=== PATIENT | female | born 1960 | race African-American/Black ===

== ENCOUNTER → 2016-08-21 | Outpatient (CLI) | payer MEDICARE, MEDICAID ==
[~2016-08-21] MED LIST: ALBU90AE IH; ASPI-1035 PO; BARIUM SULFATE 450ML ORAL SUSP ONE; CHOL100046 PO; CLON0.1T14 PO; CLOP75TA33 PO; DEXL60CA3 PO; DILT120C11 PO; FURO40TA5 PO; INSU100V3 IJ; NITR0.4T SL; mucomyst PO
== END | disposition home or self-care (01) ==
LOC: RAD 09:43
PROVIDERS: ATTEND Specialist
DX: K22.8 Other specified diseases of esophagus (principal)
CPT/HCPCS: 74220

== ENCOUNTER 2016-12-10 09:06 | Inpatient (IN) | payer MEDICARE, MEDICAID ==
[2016-12-10] VITALS (8 sets, daily range): BP systolic 105–197; BP diastolic 63–102
[~2016-12-10] VITALS: Ht 165.1 cm; Wt 85.7 kg
[~2016-12-10 09:06] MED LIST changes: -ASPI-1035 PO; +ASPI-1159 PO; -BARIUM SULFATE 450ML ORAL SUSP ONE
[2016-12-10 10:39] LABS: HEMATOCRIT 35.6 % (36.0-48.0); HEMOGLOBIN 11.1 g/dL (12.0-16.0); MEAN CORPUSCULAR HEMOGLOBIN 20.8 pg (28.0-32.0); MEAN CORPUSCULAR VOLUME 66.6 fL (81.0-99.0); PLATELET 181 x1000/uL (130-400); RED BLOOD CELL COUNT 5.35 mill/uL (4.2-5.4)
[2016-12-10 10:49] LABS: PROTHROMBIN TIME 10.8 sec (9.4-11.6)
[2016-12-10] MEDS ORDERED: MIDAZOLAM HCL 2 MG/2 ML VIAL ONE (12:41)
[2016-12-10] MEDS ORDERED: FENTANYL CITRATE/PF 50MCG/ML 2ML VIAL ONE (12:41)
[2016-12-10] MEDS ORDERED: IODIXANOL 320MG/ML 200ML BOTTLE ONE (12:41)
[2016-12-10] MEDS ORDERED: LIDOCAINE HCL 1% 20ML VIAL (Pyxis) INJ ONE (12:41)
[2016-12-10] MEDS ORDERED: HEPARIN SODIUM 1,000 UNIT/1ML VIAL IV ONE (13:08)
[2016-12-10] MEDS ORDERED: HYDRALAZINE 20MG/ML VIAL ONE (13:24)
[2016-12-10] MEDS ORDERED: NITROGLYCERIN 50MG PREMIX 250 ML IV ONE (13:37)
[2016-12-10 14:01] LABS: BG BASE EXCESS -5.7 mmol/L (-2.0-2.0); BG CARBOXYHEMOGLOBIN 0.2 % (0.5-1.5); BG DEOXYHEMOGLOBIN 1.1 % (0.0-5.0); BG FRACTION INSPIRED OXYGEN 32; BG HCO3 ACT 17.8 mmol/L (22.0-26.0); BG METHEMOGLOBIN 0.5 % (0.0-1.5); BG OXYGEN SATURATION 98.9 % (92.0-98.5); BG OXYHEMOGLOBIN 98.2 % (94.0-97.0); BG PCO2 28.8 mmHg (35.0-45.0); BG PH 7.408 (7.350-7.450); BG PO2 158.7 mmHg (75.0-100.0); BG SAMPLE SITE A-LINE; BG TOTAL HEMOGLOBIN 11.6 g/dL (12.0-18.0); BG VENT MODE NASAL CANNULA
[2016-12-10] MEDS ORDERED: ACETAMINOPHEN 325MG TABLET PO PRN (14:15)
[2016-12-10] MEDS ORDERED: DEXTROSE 50% WATER 50ML SYRINGE IV PRN (14:15)
[2016-12-10] MEDS ORDERED: ATROPINE SULFATE 1MG/10ML SYR IV PRN (14:15)
[2016-12-10] MEDS ORDERED: SODIUM CHLORIDE 0.45% 600 ML IV ONE (14:15)
[2016-12-10] MEDS ORDERED: CLONIDINE 0.3MG TABLET PO NR (17:15)
[2016-12-10] MEDS ORDERED: CLONIDINE 0.3MG TABLET ONE (17:17)
[2016-12-10] MEDS: BLOOD SUGAR DIAGNOSTIC STRIP TEST SCH ×2 (17:50→21:53)
[2016-12-10] MEDS: INSULIN LISPRO 100 UNITS/ML SUBCUT SCH ×2 (18:04→22:01)
[2016-12-10] MEDS: CLONIDINE 0.3MG TABLET PO SCH (22:37)
[2016-12-11] VITALS (15 sets, daily range): BP systolic 161–212; BP diastolic 75–153
[2016-12-11] MEDS ORDERED: HYDRALAZINE 20MG/ML VIAL IV SCH (03:00)
[2016-12-11] MEDS: CLONIDINE 0.3MG TABLET PO SCH ×2 (04:27→14:50)
[2016-12-11] MEDS: BLOOD SUGAR DIAGNOSTIC STRIP TEST SCH ×4 (06:00→20:42)
[2016-12-11 06:57] LABS: BASOPHILS % 0.8 % (0.0-2.0); EOSINOPHILS % 4.1 % (0.0-5.0); HEMATOCRIT. 35.6 % (36.0-48.0); LYMPHOCYTES % 27.5 % (20.0-50.0); MEAN CORPUSCULAR HEMOGLOBIN 20.8 pg (28.0-32.0); MEAN CORPUSCULAR VOLUME 67.1 fL (81.0-99.0); MEAN PLATELET VOLUME 9.4 fl (7.4-10.4); MONOCYTES % 9.3 % (2.0-8.0); NEUTROPHILS % 58.3 % (40.0-76.0); PLATELET 183 x1000/uL (130-400); RED CELL DISTRIBUTION WIDTH 16.8 % (11.6-14.6)
[2016-12-11] MEDS: INSULIN LISPRO 100 UNITS/ML SUBCUT SCH ×5 (07:20→20:46)
[2016-12-11] MEDS: CLOPIDOGREL 75MG TABLET PO SCH (08:16)
[2016-12-11] MEDS: CLONIDINE 0.1MG TABLET PO PRN ×2 (12:25→16:46)
[2016-12-11 14:03] LABS: PLATELET ESTIMATE NORMAL
[2016-12-11] MEDS ORDERED: NITROGLYCERIN OINT 1GM/INCH UDPKT TD SCH ×2 (16:45→18:00)
[2016-12-11] MEDS: CLONIDINE 0.2MG TABLET PO SCH (22:17)
[2016-12-12] VITALS (12 sets, daily range): BP systolic 173–223; BP diastolic 78–116
[2016-12-12] MEDS: CLONIDINE 0.2MG TABLET PO SCH ×3 (06:18→21:55)
[2016-12-12] MEDS: BLOOD SUGAR DIAGNOSTIC STRIP TEST SCH ×4 (06:20→21:54)
[2016-12-12 07:03] LABS: BASOPHILS % 1.1 % (0.0-2.0); EOSINOPHILS % 2.8 % (0.0-5.0); HEMATOCRIT. 33.1 % (36.0-48.0); HEMOGLOBIN. 10.3 g/dL (12.0-16.0); LYMPHOCYTES % 28.4 % (20.0-50.0); MEAN CORPUSCULAR HEMOGLOBIN 20.9 pg (28.0-32.0); MEAN CORPUSCULAR VOLUME 67.1 fL (81.0-99.0); MEAN PLATELET VOLUME 9.3 fl (7.4-10.4); MONOCYTES % 9.3 % (2.0-8.0); NEUTROPHILS % 58.4 % (40.0-76.0); PLATELET 174 x1000/uL (130-400); RED BLOOD CELL COUNT 4.94 mill/uL (4.2-5.4); RED CELL DISTRIBUTION WIDTH 17.1 % (11.6-14.6)
[2016-12-12] MEDS: CLOPIDOGREL 75MG TABLET PO SCH (08:13)
[2016-12-12] MEDS: INSULIN LISPRO 100 UNITS/ML SUBCUT SCH ×5 (08:13→22:33)
[2016-12-12] MEDS ORDERED: DEXTROSE 50% WATER 50ML SYRINGE IV PRN (09:45)
[2016-12-12] MEDS: CLONIDINE 0.1MG TABLET PO PRN ×2 (09:47→17:02)
[2016-12-12] MEDS ORDERED: ONDANSETRON HCL 4MG/2ML VIAL IV PRN (10:15)
[2016-12-12] MEDS: ASPIRIN 81MG EC TABLET PO SCH ×2 (11:16→16:15)
[2016-12-12] MEDS: INSULIN DETEMIR UD 100 UNITS/ML SYR SUBCUT SCH (11:30)
[2016-12-12] MEDS ORDERED: BLOOD SUGAR DIAGNOSTIC STRIP TEST SCH (11:50)
[2016-12-12 12:09] LABS: AMMONIA 21 uMol/L (<32)
[2016-12-12 13:35] LABS: *AMPHETAMINES SCREEN URINE NEGATIVE (NEGATIVE); *BARBITURATES SCREEN URINE NEGATIVE (NEGATIVE); *BENZODIAZEPINES SCREEN URINE PRESUMTIVE POSITIVE (NEGATIVE); *COCAINE SCREEN URINE NEGATIVE (NEGATIVE); CANNABINOID URINE SCREEN NEGATIVE (NEGATIVE); METHADONE URINE SCREEN NEGATIVE (NEGATIVE); OPIATES URINE SCREEN NEGATIVE (NEGATIVE); PHENCYCLIDINE URINE SCREEN NEGATIVE (NEGATIVE)
[2016-12-12] MEDS: ATORVASTATIN CALCIUM 20MG TABLET PO SCH (21:55)
[2016-12-13] VITALS (17 sets, daily range): BP systolic 134–219; BP diastolic 73–139
[2016-12-13] MEDS: CLONIDINE 0.1MG TABLET PO PRN ×2 (00:12→08:17)
[2016-12-13] MEDS: BLOOD SUGAR DIAGNOSTIC STRIP TEST SCH ×4 (05:56→20:55)
[2016-12-13] MEDS: CLONIDINE 0.2MG TABLET PO SCH ×4 (05:57→20:59)
[2016-12-13 07:29] LABS: CARBON DIOXIDE 26 mEq/L (21-32); CHLORIDE 104 mEq/L (98-107); HDL CHOLESTEROL 44 mg/dL (40-59); LDL CHOLESTEROL 173 mg/dL (5-100)
[2016-12-13 07:36] LABS: BASOPHILS % 1.1 % (0.0-2.0); EOSINOPHILS % 3.7 % (0.0-5.0); HEMATOCRIT. 35.9 % (36.0-48.0); HEMOGLOBIN. 11.1 g/dL (12.0-16.0); LYMPHOCYTES % 32.2 % (20.0-50.0); MEAN CORPUSCULAR HEMOGLOBIN 20.9 pg (28.0-32.0); MEAN CORPUSCULAR VOLUME 67.2 fL (81.0-99.0); MEAN PLATELET VOLUME 8.9 fl (7.4-10.4); MONOCYTES % 10.8 % (2.0-8.0); NEUTROPHILS % 52.2 % (40.0-76.0); PLATELET 177 x1000/uL (130-400); RED BLOOD CELL COUNT 5.34 mill/uL (4.2-5.4); RED CELL DISTRIBUTION WIDTH 16.8 % (11.6-14.6)
[2016-12-13] MEDS: INSULIN LISPRO 100 UNITS/ML SUBCUT SCH ×4 (08:04→22:27)
[2016-12-13] MEDS: ASPIRIN 81MG EC TABLET PO SCH ×2 (08:16→17:36)
[2016-12-13] MEDS: CLOPIDOGREL 75MG TABLET PO SCH (08:16)
[2016-12-13] MEDS: INSULIN DETEMIR UD 100 UNITS/ML SYR SUBCUT SCH (10:00)
[2016-12-13] MEDS: ATORVASTATIN CALCIUM 20MG TABLET PO SCH (20:51)
[2016-12-13] MEDS ORDERED: INSULIN LISPRO 100 UNITS/ML SUBCUT PRN (21:45)
[2016-12-14] VITALS (11 sets, daily range): BP systolic 155–201; BP diastolic 76–110
[2016-12-14] MEDS: CLONIDINE 0.1MG TABLET PO PRN ×3 (00:45→21:53)
[2016-12-14] MEDS: BLOOD SUGAR DIAGNOSTIC STRIP TEST SCH ×4 (06:50→21:53)
[2016-12-14] MEDS: INSULIN LISPRO 100 UNITS/ML SUBCUT SCH ×2 (07:20→08:10)
[2016-12-14 07:56] LABS: EOSINOPHILS % 4.3 % (0.0-5.0); HEMATOCRIT. 37.1 % (36.0-48.0); HEMOGLOBIN. 11.5 g/dL (12.0-16.0); LYMPHOCYTES % 33.8 % (20.0-50.0); MEAN CORPUSCULAR HEMOGLOBIN 20.9 pg (28.0-32.0); MEAN CORPUSCULAR VOLUME 67.3 fL (81.0-99.0); MEAN PLATELET VOLUME 9.2 fl (7.4-10.4); MONOCYTES % 11.1 % (2.0-8.0); NEUTROPHILS % 49.8 % (40.0-76.0); PLATELET 187 x1000/uL (130-400); RED BLOOD CELL COUNT 5.51 mill/uL (4.2-5.4); RED CELL DISTRIBUTION WIDTH 16.4 % (11.6-14.6)
[2016-12-14] MEDS: CLOPIDOGREL 75MG TABLET PO SCH (08:09)
[2016-12-14] MEDS: ASPIRIN 81MG EC TABLET PO SCH ×2 (08:09→16:07)
[2016-12-14] MEDS: CLONIDINE 0.2MG TABLET PO SCH ×4 (09:05→22:00)
[2016-12-14] MEDS: INSULIN DETEMIR UD 100 UNITS/ML SYR SUBCUT SCH (10:08)
[2016-12-14] MEDS ORDERED: CLONIDINE 0.1MG TABLET PO SCH (11:00)
[2016-12-14] MEDS ORDERED: MINOXIDIL 2.5MG TABLET PO SCH (12:30)
[2016-12-14] MEDS: INSULIN REGULAR (HUMULIN R) 300UNITS/3ML SUBCUT SCH (16:56)
[2016-12-14] MEDS: ATORVASTATIN CALCIUM 20MG TABLET PO SCH (21:49)
[2016-12-14] MEDS ORDERED: INSULIN REGULAR (HUMULIN R) UD 100 UNITS/ML SYR SUBCUT NR (23:52)
[2016-12-15] VITALS (12 sets, daily range): BP systolic 142–184; BP diastolic 66–118
[2016-12-15] MEDS: CLONIDINE 0.2MG TABLET PO SCH ×4 (00:20→21:18)
[2016-12-15] MEDS: CLONIDINE 0.1MG TABLET PO PRN ×2 (05:37→23:21)
[2016-12-15] MEDS: BLOOD SUGAR DIAGNOSTIC STRIP TEST SCH ×4 (06:33→20:16)
[2016-12-15 07:31] LABS: BASOPHILS % 1.3 % (0.0-2.0); EOSINOPHILS % 3.6 % (0.0-5.0); HEMATOCRIT. 40.2 % (36.0-48.0); HEMOGLOBIN. 12.6 g/dL (12.0-16.0); LYMPHOCYTES % 30.9 % (20.0-50.0); MEAN CORPUSCULAR HEMOGLOBIN 21.1 pg (28.0-32.0); MEAN CORPUSCULAR VOLUME 67.4 fL (81.0-99.0); MEAN PLATELET VOLUME 9.1 fl (7.4-10.4); MONOCYTES % 10.4 % (2.0-8.0); NEUTROPHILS % 53.8 % (40.0-76.0); PLATELET 198 x1000/uL (130-400); RED BLOOD CELL COUNT 5.97 mill/uL (4.2-5.4); RED CELL DISTRIBUTION WIDTH 16.8 % (11.6-14.6)
[2016-12-15] MEDS: INSULIN REGULAR (HUMULIN R) 300UNITS/3ML SUBCUT SCH ×2 (08:07→17:13)
[2016-12-15] MEDS: CLOPIDOGREL 75MG TABLET PO SCH (08:08)
[2016-12-15] MEDS: ASPIRIN 81MG EC TABLET PO SCH ×2 (08:08→16:15)
[2016-12-15] MEDS ORDERED: LACTULOSE 20G/30ML UDC PO PRN (13:45)
[2016-12-15] MEDS: DOCUSATE SODIUM 100MG CAPSULE PO SCH ×2 (14:12→20:16)
[2016-12-15] MEDS: ATORVASTATIN CALCIUM 20MG TABLET PO SCH (20:15)
[2016-12-16] VITALS (9 sets, daily range): BP systolic 148–196; BP diastolic 72–117
[2016-12-16] MEDS: CLONIDINE 0.2MG TABLET PO SCH (06:53)
[2016-12-16] MEDS: BLOOD SUGAR DIAGNOSTIC STRIP TEST SCH ×2 (06:53→12:11)
[2016-12-16] MEDS: CLOPIDOGREL 75MG TABLET PO SCH (08:20)
[2016-12-16] MEDS: ASPIRIN 81MG EC TABLET PO SCH (08:20)
[2016-12-16] MEDS: DOCUSATE SODIUM 100MG CAPSULE PO SCH (08:20)
[2016-12-16] MEDS: INSULIN REGULAR (HUMULIN R) 300UNITS/3ML SUBCUT SCH (09:05)
[2016-12-16] MEDS ORDERED: CLONIDINE 0.2MG TABLET PO SCH (12:00)
== END 2016-12-16 12:10 | disposition home health service (06) | DRG 304 ==
LOC: CCL 09:06 → 3WST 09:07
PROVIDERS: ADMIT Family Medicine Adult Medicine; ATTEND Family Medicine Adult Medicine
PROC: B41G1ZZ Fluoroscopy of Left Lower Extremity Arteries using Low Osmolar Contrast (ICD-10-PCS; principal; 2016-12-10)
PROC: B41F1ZZ Fluoroscopy of Right Lower Extremity Arteries using Low Osmolar Contrast (ICD-10-PCS; 2016-12-10)
DX: I11.9 Hypertensive heart disease without heart failure (principal); I63.9 Cerebral infarction, unspecified; E11.51 Type 2 diabetes mellitus with diabetic peripheral angiopathy without gangrene; Z95.5 Presence of coronary angioplasty implant and graft; I25.10 Atherosclerotic heart disease of native coronary artery without angina pectoris; E78.5 Hyperlipidemia, unspecified; E78.00 Pure hypercholesterolemia, unspecified; K21.9 Gastro-esophageal reflux disease without esophagitis; N28.9 Disorder of kidney and ureter, unspecified; Z79.82 Long term (current) use of aspirin; Z79.4 Long term (current) use of insulin; Z79.899 Other long term (current) drug therapy; Z88.0 Allergy status to penicillin
CPT/HCPCS: 36246; 36415; 36600; 70551; 75710; 80048; 80053; 80061; 80305; 82140; 82375; 82805; 82962; 83036; 83735; 84443; 85025; 85027; 85347; 85610; 85730; 92610; 93005; 93880; 93970; 97116; 97162; 97166; C1760; C1769; C1893; G0482; J0360; J1644; J1815; J2250; J3010; J3490; L1830; Q9967

== ENCOUNTER 2017-12-19 11:07 | Inpatient (IN) | payer MEDICARE, MEDICAID ==
[~2017-12-19] VITALS: Ht 165.1 cm; Wt 84.1 kg
[2017-12-19] VITALS (18 sets, daily range): BP systolic 117–204; BP diastolic 57–173
[~2017-12-19 11:07] MED LIST changes: -ALBU90AE IH; +ALBU90AE INH; -CHOL100046 PO; -CLON0.1T14 PO; +CLON0.3T PO; +CLOP75TA16 PO; -CLOP75TA33 PO; -DILT120C11 PO; +HUMALIN R SQ; -INSU100V3 IJ; +METO25TA6 PO; +N325 SL; -NITR0.4T SL; -mucomyst PO
[2017-12-19] MEDS ORDERED: NITROGLYCERIN 0.4MG TABLET SL SL PRN (11:30)
[2017-12-19] MEDS ORDERED: NITROGLYCERIN OINT 1GM/INCH UDPKT TD ONE (11:30)
[2017-12-19] MEDS ORDERED: LORAZEPAM 2MG/ML CPJ IV ONE (11:45)
[2017-12-19 11:57] LABS: BASOPHILS % 1.1 % (0.0-2.0); EOSINOPHILS % 3.9 % (0.0-5.0); HEMATOCRIT. 42.6 % (36.0-48.0); HEMOGLOBIN. 13.5 g/dL (12.0-16.0); LYMPHOCYTES % 25.2 % (20.0-50.0); MEAN CORPUSCULAR HEMOGLOBIN 22.2 pg (28.0-32.0); MEAN CORPUSCULAR VOLUME 69.7 fL (81.0-99.0); MEAN PLATELET VOLUME 9.3 fl (7.4-10.4); MONOCYTES % 8.3 % (2.0-8.0); NEUTROPHILS % 61.5 % (40.0-76.0); PLATELET 184 x1000/uL (130-400); RED BLOOD CELL COUNT 6.11 mill/uL (4.2-5.4); RED CELL DISTRIBUTION WIDTH 17.1 % (11.6-14.6)
[2017-12-19] MEDS ORDERED: NICARDIPINE 50 MG in SODIUM CHLORIDE 0.9% 230 ML IV STA (11:58)
[2017-12-19 12:02] LABS: CHLORIDE 108 mEq/L (98-107)
[2017-12-19 12:03] LABS: PARTIAL THROMBOPLASTIN TIME 25.7 sec (23.4-31.0)
[2017-12-19 12:09] LABS: CREATINE KINASE 91 IU/L (26-192)
[2017-12-19] MEDS ORDERED: NICARDIPINE 40MG/200ML PREMIX 200 ML IV ONE ×2 (12:11→19:30)
[2017-12-19 12:12] LABS: CREATINE KINASE MB FRACTION 1.3 ng/mL (0.5-3.6)
[2017-12-19 12:17] LABS: PLATELET ESTIMATE NORMAL
[2017-12-19] MEDS ORDERED: ASPIRIN 81MG EC TABLET PO SCH (12:30)
[2017-12-19] MEDS ORDERED: FUROSEMIDE 40MG/4ML VIAL IVP ONE (12:30)
[2017-12-19] MEDS ORDERED: CLONIDINE 0.1MG TABLET PO SCH (13:00)
[2017-12-19] MEDS ORDERED: ASPIRIN 325MG EC TABLET PO ONE (13:30)
[2017-12-19] MEDS ORDERED: CLOPIDOGREL 75MG TABLET PO ONE (13:30)
[2017-12-19 14:16] LABS: CLARITY URINE CLEAR (CLEAR); COLOR URINE YELLOW (YELLOW); KETONES URINE NEGATIVE (NEGATIVE); LEUKOCYTE ESTERASE URINE NEGATIVE (NEGATIVE); NITRITE URINE NEGATIVE (NEGATIVE); OCCULT BLOOD URINE TRACE (NEGATIVE); PROTEIN URINE 3+ (NEGATIVE); UROBILINOGEN URINE 0.2 E.U./dL (0.2-1.0)
[2017-12-19 14:43] LABS: *AMPHETAMINES SCREEN URINE NEGATIVE (NEGATIVE); *BARBITURATES SCREEN URINE NEGATIVE (NEGATIVE); *BENZODIAZEPINES SCREEN URINE NEGATIVE (NEGATIVE); *COCAINE SCREEN URINE NEGATIVE (NEGATIVE); METHADONE URINE SCREEN NEGATIVE (NEGATIVE); OPIATES URINE SCREEN NEGATIVE (NEGATIVE)
[2017-12-19 14:45] LABS: CANNABINOID URINE SCREEN NEGATIVE (NEGATIVE); PHENCYCLIDINE URINE SCREEN NEGATIVE (NEGATIVE)
[2017-12-19] MEDS ORDERED: NITROGLYCERIN OINT 1GM/INCH UDPKT TD SCH (18:00)
[2017-12-19] MEDS ORDERED: HYDROCODONE/ACETAMINOPHEN 10/325MG TABLET PO PRN (21:00)
[2017-12-19] MEDS: NITROGLYCERIN OINT 1GM/INCH UDPKT TD SCH (21:23)
[2017-12-19] MEDS: METOPROLOL TARTRATE 25MG TABLET PO SCH (21:24)
[2017-12-19] MEDS: HYDROMORPHONE HCL/PF 2MG/ML CPJ IV PRN (21:26)
[2017-12-19] MEDS: CLONIDINE 0.3MG TABLET PO SCH (22:17)
[2017-12-20] VITALS (54 sets, daily range): BP systolic 117–203; BP diastolic 39–104
[2017-12-20] MEDS: ASPIRIN 81MG EC TABLET PO SCH ×4 (00:04→18:35)
[2017-12-20] MEDS: HYDROMORPHONE HCL/PF 2MG/ML CPJ IV PRN ×6 (00:06→22:50)
[2017-12-20] MEDS: NICARDIPINE 40MG/200ML PREMIX 200 ML IV SCH ×3 (00:07→21:30)
[2017-12-20] MEDS: NITROGLYCERIN OINT 1GM/INCH UDPKT TD SCH ×5 (03:00→21:10)
[2017-12-20 05:28] LABS: BASOPHILS % 0.7 % (0.0-2.0); EOSINOPHILS % 0.3 % (0.0-5.0); HEMATOCRIT. 41.3 % (36.0-48.0); HEMOGLOBIN. 12.7 g/dL (12.0-16.0); LYMPHOCYTES % 12.2 % (20.0-50.0); MEAN CORPUSCULAR HEMOGLOBIN 21.4 pg (28.0-32.0); MEAN CORPUSCULAR VOLUME 69.6 fL (81.0-99.0); NEUTROPHILS % 80.8 % (40.0-76.0); PLATELET 199 x1000/uL (130-400); RED BLOOD CELL COUNT 5.93 mill/uL (4.2-5.4); RED CELL DISTRIBUTION WIDTH 16.6 % (11.6-14.6)
[2017-12-20 05:31] LABS: CHLORIDE 109 mEq/L (98-107)
[2017-12-20 05:40] LABS: CREATINE KINASE MB FRACTION 1.8 ng/mL (0.5-3.6); LDL CHOLESTEROL 184 mg/dL (5-100)
[2017-12-20 05:41] LABS: CREATINE KINASE 67 IU/L (26-192); HDL CHOLESTEROL 59 mg/dL (40-59)
[2017-12-20] MEDS: CLOPIDOGREL 75MG TABLET PO SCH (08:56)
[2017-12-20] MEDS: CLONIDINE 0.3MG TABLET PO SCH ×2 (08:57→12:57)
[2017-12-20] MEDS: METOPROLOL TARTRATE 25MG TABLET PO SCH ×2 (09:00→21:00)
[2017-12-20] MEDS ORDERED: DEXTROSE 50% WATER 50ML SYRINGE IV PRN (13:15)
[2017-12-20] MEDS: INSULIN REGULAR (HUMULIN R) 300UNITS/3ML SUBCUT SCH ×3 (13:49→21:22)
[2017-12-20] MEDS: BLOOD SUGAR DIAGNOSTIC STRIP TEST SCH ×3 (13:49→21:16)
[2017-12-20] MEDS ORDERED: CHLORTHALIDONE 25MG TABLET PO SCH (15:30)
[2017-12-21] VITALS (37 sets, daily range): BP systolic 88–183; BP diastolic 42–101
[2017-12-21] MEDS: HYDROMORPHONE HCL/PF 2MG/ML CPJ IV PRN ×4 (01:27→09:56)
[2017-12-21] MEDS: NITROGLYCERIN OINT 1GM/INCH UDPKT TD SCH ×4 (03:12→20:30)
[2017-12-21] MEDS: NICARDIPINE 40MG/200ML PREMIX 200 ML IV PRN ×2 (05:31→07:16)
[2017-12-21] MEDS: BLOOD SUGAR DIAGNOSTIC STRIP TEST SCH ×4 (06:45→20:35)
[2017-12-21] MEDS: INSULIN REGULAR (HUMULIN R) 300UNITS/3ML SUBCUT SCH ×4 (06:46→18:31)
[2017-12-21] MEDS: METOPROLOL TARTRATE 25MG TABLET PO SCH ×2 (09:00→20:29)
[2017-12-21] MEDS: ONDANSETRON HCL 4MG/2ML INJ IV PRN (09:55)
[2017-12-21] MEDS: NICARDIPINE 50 MG in SODIUM CHLORIDE 0.9% 230 ML IV PRN ×3 (11:04→22:39)
[2017-12-21] MEDS: ASPIRIN 81MG EC TABLET PO SCH ×2 (13:12→17:00)
[2017-12-21] MEDS: CLOPIDOGREL 75MG TABLET PO SCH (13:12)
[2017-12-21] MEDS: CLONIDINE 0.3MG TABLET PO SCH ×3 (13:48→21:19)
[2017-12-21] MEDS ORDERED: INSULIN REGULAR (HUMULIN R) UD 100 UNITS/ML SYR IV NR (18:30)
[2017-12-21] MEDS ORDERED: INSULIN REGULAR (HUMULIN R) 300UNITS/3ML SUBCUT NR (18:35)
[2017-12-21] MEDS ORDERED: INSULIN REGULAR (HUMULIN R) 300UNITS/3ML IV NR (18:37)
[2017-12-22] VITALS (65 sets, daily range): BP systolic 120–173; BP diastolic 57–102
[2017-12-22] MEDS: NITROGLYCERIN OINT 1GM/INCH UDPKT TD SCH ×4 (03:15→20:25)
[2017-12-22 05:39] LABS: BASOPHILS % 0.6 % (0.0-2.0); EOSINOPHILS % 0.4 % (0.0-5.0); HEMATOCRIT. 38.4 % (36.0-48.0); HEMOGLOBIN. 11.9 g/dL (12.0-16.0); LYMPHOCYTES % 17.1 % (20.0-50.0); MEAN CORPUSCULAR HEMOGLOBIN 21.4 pg (28.0-32.0); MEAN CORPUSCULAR VOLUME 69.1 fL (81.0-99.0); MEAN PLATELET VOLUME 9.7 fl (7.4-10.4); NEUTROPHILS % 70.9 % (40.0-76.0); PLATELET 232 x1000/uL (130-400); RED BLOOD CELL COUNT 5.56 mill/uL (4.2-5.4); RED CELL DISTRIBUTION WIDTH 16.9 % (11.6-14.6)
[2017-12-22 06:13] LABS: T4 FREE 0.82 ng/dL (0.76-1.46)
[2017-12-22] MEDS: BLOOD SUGAR DIAGNOSTIC STRIP TEST SCH ×4 (06:50→21:29)
[2017-12-22] MEDS: INSULIN REGULAR (HUMULIN R) 300UNITS/3ML SUBCUT SCH ×4 (06:51→21:00)
[2017-12-22 07:42] LABS: FOLIC ACID (FOLATE) SERUM 17.4 ng/mL (>5.38)
[2017-12-22] MEDS: METOPROLOL TARTRATE 25MG TABLET PO SCH ×3 (08:56→20:30)
[2017-12-22] MEDS: ASPIRIN 81MG EC TABLET PO SCH ×2 (08:56→17:13)
[2017-12-22] MEDS: CLOPIDOGREL 75MG TABLET PO SCH (08:56)
[2017-12-22] MEDS: CLONIDINE 0.3MG TABLET PO SCH ×2 (08:56→12:24)
[2017-12-22] MEDS ORDERED: CHLORTHALIDONE 25MG TABLET PO SCH (09:00)
[2017-12-22] MEDS: NICARDIPINE 50 MG in SODIUM CHLORIDE 0.9% 230 ML IV PRN ×2 (10:39→18:41)
[2017-12-22] MEDS: CLONIDINE 0.2MG TABLET PO SCH ×2 (17:13→20:25)
[2017-12-23] VITALS (74 sets, daily range): BP systolic 97–189; BP diastolic 44–123
[2017-12-23] MEDS: NICARDIPINE 50 MG in SODIUM CHLORIDE 0.9% 230 ML IV PRN ×2 (02:04→06:37)
[2017-12-23] MEDS: NITROGLYCERIN OINT 1GM/INCH UDPKT TD SCH ×4 (02:38→21:43)
[2017-12-23] MEDS ORDERED: CLONIDINE 0.3MG TABLET PO SCH (04:30)
[2017-12-23] MEDS: ALPRAZOLAM 0.5 MG TABLET PO PRN (04:51)
[2017-12-23 06:10] LABS: BASOPHILS % 0.7 % (0.0-2.0); EOSINOPHILS % 1.7 % (0.0-5.0); HEMATOCRIT. 39.1 % (36.0-48.0); HEMOGLOBIN. 12.1 g/dL (12.0-16.0); LYMPHOCYTES % 10.4 % (20.0-50.0); MEAN CORPUSCULAR HEMOGLOBIN 21.6 pg (28.0-32.0); MEAN CORPUSCULAR VOLUME 69.7 fL (81.0-99.0); MEAN PLATELET VOLUME 9.7 fl (7.4-10.4); MONOCYTES % 8.6 % (2.0-8.0); NEUTROPHILS % 78.6 % (40.0-76.0); PLATELET 223 x1000/uL (130-400); RED BLOOD CELL COUNT 5.61 mill/uL (4.2-5.4); RED CELL DISTRIBUTION WIDTH 16.8 % (11.6-14.6)
[2017-12-23 06:21] LABS: CHLORIDE 103 mEq/L (98-107)
[2017-12-23] MEDS: BLOOD SUGAR DIAGNOSTIC STRIP TEST SCH ×4 (06:24→20:31)
[2017-12-23] MEDS ORDERED: IPRATROPIUM/ALBUTEROL 0.5-3(2.5)MG/3ML NEB HHN PRN (06:30)
[2017-12-23] MEDS ORDERED: ALBUTEROL 6.7GM HFA INHALER ORI PRN ×2 (09:00→13:00)
[2017-12-23] MEDS ORDERED: FUROSEMIDE 40MG/4ML VIAL IVP NR (09:15)
[2017-12-23] MEDS: ASPIRIN 81MG EC TABLET PO SCH ×2 (09:16→16:43)
[2017-12-23] MEDS: CLONIDINE 0.2MG TABLET PO SCH ×3 (09:17→22:00)
[2017-12-23] MEDS: CLOPIDOGREL 75MG TABLET PO SCH (09:18)
[2017-12-23] MEDS: HYDROMORPHONE HCL/PF 2MG/ML CPJ IV PRN ×2 (10:09→16:58)
[2017-12-23] MEDS ORDERED: METHYLPREDNISOLONE SOD SUCC 125 MG/2 ML VIAL IV SCH (10:45)
[2017-12-23] MEDS: METOPROLOL TARTRATE 25MG TABLET PO SCH ×2 (11:12→20:10)
[2017-12-23] MEDS: INSULIN REGULAR (HUMULIN R) 300UNITS/3ML SUBCUT SCH ×4 (11:14→20:11)
[2017-12-23] MEDS: RISPERIDONE 0.5MG TABLET PO SCH ×3 (12:00→20:10)
[2017-12-23] MEDS ORDERED: IPRATROPIUM BROMIDE (0.02%) 0.5MG/2.5ML NEB HHN SCH (12:00)
[2017-12-23] MEDS: METRONIDAZOLE 500 MG PREMIX 100 ML IV SCH ×2 (14:49→22:21)
[2017-12-23] MEDS: LEVOFLOXACIN 500MG PREMIX 100 ML IV SCH (14:49)
[2017-12-23] MEDS: METHYLPREDNISOLONE SOD SUCC 125 MG/2 ML VIAL IV SCH ×2 (14:50→21:43)
[2017-12-24] VITALS (34 sets, daily range): BP systolic 133–157; BP diastolic 67–95
[2017-12-24] MEDS: NITROGLYCERIN OINT 1GM/INCH UDPKT TD SCH ×4 (03:35→21:06)
[2017-12-24] MEDS: CLONIDINE 0.2MG TABLET PO SCH ×3 (05:11→21:03)
[2017-12-24] MEDS: METHYLPREDNISOLONE SOD SUCC 125 MG/2 ML VIAL IV SCH (05:12)
[2017-12-24 06:25] LABS: HEMATOCRIT. 36.1 % (36.0-48.0); HEMOGLOBIN. 11.3 g/dL (12.0-16.0); MEAN CORPUSCULAR HEMOGLOBIN 21.8 pg (28.0-32.0); MEAN CORPUSCULAR VOLUME 69.4 fL (81.0-99.0); PLATELET 197 x1000/uL (130-400); RED CELL DISTRIBUTION WIDTH 16.6 % (11.6-14.6)
[2017-12-24] MEDS: BLOOD SUGAR DIAGNOSTIC STRIP TEST SCH ×4 (06:28→21:03)
[2017-12-24] MEDS: METRONIDAZOLE 500 MG PREMIX 100 ML IV SCH ×3 (06:29→23:59)
[2017-12-24] MEDS: INSULIN REGULAR (HUMULIN R) 300UNITS/3ML SUBCUT SCH ×3 (06:29→21:02)
[2017-12-24 06:39] LABS: CHLORIDE 102 mEq/L (98-107)
[2017-12-24 08:50] LABS: PLATELET ESTIMATE NORMAL
[2017-12-24 10:04] LABS: CREATINE KINASE MB FRACTION 3.5 ng/mL (0.5-3.6)
[2017-12-24] MEDS: ASPIRIN 81MG EC TABLET PO SCH (10:10)
[2017-12-24] MEDS: CLOPIDOGREL 75MG TABLET PO SCH (10:10)
[2017-12-24] MEDS: METOPROLOL TARTRATE 25MG TABLET PO SCH ×2 (10:11→21:03)
[2017-12-24] MEDS: RISPERIDONE 0.5MG TABLET PO SCH ×2 (10:11→21:06)
[2017-12-24] MEDS: FUROSEMIDE 40MG/4ML VIAL IVP NR (10:45)
[2017-12-24] MEDS ORDERED: FUROSEMIDE 80MG TABLET PO NR (14:30)
[2017-12-24] MEDS ORDERED: LIDOCAINE HCL 1% 10 MG/ML 10ML VIAL ONE (14:57)
[2017-12-24] MEDS: METHYLPREDNISOLONE SOD SUCC 40 MG/ML VIAL IV SCH (21:06)
[2017-12-25] VITALS (25 sets, daily range): BP systolic 136–172; BP diastolic 64–104
[2017-12-25] MEDS: NITROGLYCERIN OINT 1GM/INCH UDPKT TD SCH ×4 (03:31→21:49)
[2017-12-25] MEDS: CLONIDINE 0.2MG TABLET PO SCH ×3 (05:09→22:23)
[2017-12-25 06:23] LABS: HEMATOCRIT. 35.8 % (36.0-48.0); HEMOGLOBIN. 11.6 g/dL (12.0-16.0); MEAN CORPUSCULAR HEMOGLOBIN 22.2 pg (28.0-32.0); MEAN CORPUSCULAR VOLUME 68.4 fL (81.0-99.0); MEAN PLATELET VOLUME 9.4 fl (7.4-10.4); PLATELET 187 x1000/uL (130-400); RED BLOOD CELL COUNT 5.24 mill/uL (4.2-5.4); RED CELL DISTRIBUTION WIDTH 15.9 % (11.6-14.6)
[2017-12-25] MEDS: INSULIN REGULAR (HUMULIN R) 300UNITS/3ML SUBCUT SCH ×4 (06:29→21:42)
[2017-12-25] MEDS: BLOOD SUGAR DIAGNOSTIC STRIP TEST SCH ×4 (06:29→21:34)
[2017-12-25] MEDS: METRONIDAZOLE 500 MG PREMIX 100 ML IV SCH ×3 (06:31→22:23)
[2017-12-25] MEDS: FUROSEMIDE 40MG/4ML VIAL IVP SCH ×2 (09:00→17:45)
[2017-12-25] MEDS: METOPROLOL TARTRATE 25MG TABLET PO SCH ×2 (09:07→21:00)
[2017-12-25] MEDS: METHYLPREDNISOLONE SOD SUCC 40 MG/ML VIAL IV SCH (09:07)
[2017-12-25] MEDS: RISPERIDONE 0.5MG TABLET PO SCH ×3 (09:08→21:56)
[2017-12-25] MEDS: ASPIRIN 81MG EC TABLET PO SCH ×2 (09:08→17:45)
[2017-12-25] MEDS: CLOPIDOGREL 75MG TABLET PO SCH (09:08)
[2017-12-25] MEDS: FUROSEMIDE 40MG/4ML VIAL IVP NR (09:09)
[2017-12-25] MEDS: HYDRALAZINE HCL 25MG TABLET PO SCH ×3 (09:17→22:00)
[2017-12-25 10:14] LABS: CREATINE KINASE 61 IU/L (26-192)
[2017-12-25 13:56] LABS: PLATELET ESTIMATE NORMAL
[2017-12-25] MEDS: LEVOFLOXACIN 500MG PREMIX 100 ML IV SCH (14:46)
[2017-12-26] VITALS (38 sets, daily range): BP systolic 134–233; BP diastolic 46–117
[2017-12-26] MEDS: NITROGLYCERIN OINT 1GM/INCH UDPKT TD SCH ×4 (02:58→20:55)
[2017-12-26 05:58] LABS: HEMATOCRIT. 35.2 % (36.0-48.0); HEMOGLOBIN. 11.2 g/dL (12.0-16.0); MEAN CORPUSCULAR HEMOGLOBIN 21.7 pg (28.0-32.0); MEAN PLATELET VOLUME 9.6 fl (7.4-10.4); PLATELET 220 x1000/uL (130-400); RED BLOOD CELL COUNT 5.17 mill/uL (4.2-5.4); RED CELL DISTRIBUTION WIDTH 16.3 % (11.6-14.6)
[2017-12-26] MEDS: HYDRALAZINE HCL 25MG TABLET PO SCH ×2 (06:00→14:00)
[2017-12-26] MEDS: BLOOD SUGAR DIAGNOSTIC STRIP TEST SCH ×4 (06:30→20:55)
[2017-12-26] MEDS: CLONIDINE 0.2MG TABLET PO SCH ×3 (06:45→20:55)
[2017-12-26] MEDS: METRONIDAZOLE 500 MG PREMIX 100 ML IV SCH ×3 (06:46→23:54)
[2017-12-26] MEDS: INSULIN REGULAR (HUMULIN R) 300UNITS/3ML SUBCUT SCH ×4 (07:00→20:56)
[2017-12-26] MEDS: FUROSEMIDE 40MG/4ML VIAL IVP SCH ×2 (07:30→17:25)
[2017-12-26] MEDS: METOPROLOL TARTRATE 25MG TABLET PO SCH ×2 (09:00→20:54)
[2017-12-26] MEDS: ASPIRIN 81MG EC TABLET PO SCH ×2 (09:22→17:25)
[2017-12-26] MEDS: POTASSIUM CHLORIDE 20MEQ TABLET SR PO SCH (09:22)
[2017-12-26] MEDS: CLOPIDOGREL 75MG TABLET PO SCH (09:22)
[2017-12-26] MEDS: FUROSEMIDE 40MG/4ML VIAL IVP NR (11:15)
[2017-12-26] MEDS: RISPERIDONE 0.5MG TABLET PO SCH ×2 (20:55→21:00)
[2017-12-27] VITALS (11 sets, daily range): BP systolic 142–165; BP diastolic 49–96
[2017-12-27] MEDS: NITROGLYCERIN OINT 1GM/INCH UDPKT TD SCH ×4 (04:22→21:30)
[2017-12-27] MEDS: CLONIDINE 0.2MG TABLET PO SCH ×3 (06:16→21:31)
[2017-12-27 06:37] LABS: HEMATOCRIT. 39.1 % (36.0-48.0); HEMOGLOBIN. 12.4 g/dL (12.0-16.0); MEAN CORPUSCULAR HEMOGLOBIN 21.6 pg (28.0-32.0); MEAN CORPUSCULAR VOLUME 68.3 fL (81.0-99.0); MEAN PLATELET VOLUME 8.9 fl (7.4-10.4); PLATELET 225 x1000/uL (130-400); RED BLOOD CELL COUNT 5.73 mill/uL (4.2-5.4); RED CELL DISTRIBUTION WIDTH 16.1 % (11.6-14.6)
[2017-12-27] MEDS: BLOOD SUGAR DIAGNOSTIC STRIP TEST SCH ×4 (06:51→21:31)
[2017-12-27] MEDS: INSULIN REGULAR (HUMULIN R) 300UNITS/3ML SUBCUT SCH ×4 (07:20→21:00)
[2017-12-27] MEDS: METRONIDAZOLE 500 MG PREMIX 100 ML IV SCH ×4 (07:27→22:44)
[2017-12-27] MEDS: FUROSEMIDE 40MG/4ML VIAL IVP SCH ×2 (07:54→18:03)
[2017-12-27] MEDS: POTASSIUM CHLORIDE 20MEQ TABLET SR PO SCH (08:04)
[2017-12-27] MEDS: CLOPIDOGREL 75MG TABLET PO SCH (08:05)
[2017-12-27] MEDS: ASPIRIN 81MG EC TABLET PO SCH ×2 (08:05→17:00)
[2017-12-27] MEDS: RISPERIDONE 0.5MG TABLET PO SCH ×2 (08:05→21:00)
[2017-12-27] MEDS: METOPROLOL TARTRATE 25MG TABLET PO SCH ×2 (08:05→21:00)
[2017-12-27 08:45] LABS: PLATELET ESTIMATE NORMAL
[2017-12-27 13:04] LABS: PLATELET ESTIMATE NORMAL
[2017-12-27] MEDS: LEVOFLOXACIN 500MG PREMIX 100 ML IV SCH (14:09)
[2017-12-27] MEDS: MINOXIDIL 2.5MG TABLET PO SCH ×2 (21:00→21:30)
[2017-12-27] MEDS: ALPRAZOLAM 0.5 MG TABLET PO PRN ×2 (22:34→23:13)
[2017-12-28] VITALS (10 sets, daily range): BP systolic 128–170; BP diastolic 68–93
[2017-12-28] MEDS: NITROGLYCERIN OINT 1GM/INCH UDPKT TD SCH ×4 (03:23→22:07)
[2017-12-28 04:26] LABS: CLARITY URINE CLEAR (CLEAR); COLOR URINE YELLOW (YELLOW); KETONES URINE NEGATIVE (NEGATIVE); LEUKOCYTE ESTERASE URINE NEGATIVE (NEGATIVE); NITRITE URINE NEGATIVE (NEGATIVE); OCCULT BLOOD URINE TRACE (NEGATIVE); PH URINE 6.5 (4.5-8.0); PROTEIN URINE 2+ (NEGATIVE); SPECIFIC GRAVITY URINE 1.012 (1.005-1.030); UROBILINOGEN URINE 0.2 E.U./dL (0.2-1.0)
[2017-12-28] MEDS: BLOOD SUGAR DIAGNOSTIC STRIP TEST SCH ×4 (06:28→21:00)
[2017-12-28] MEDS: CLONIDINE 0.2MG TABLET PO SCH ×3 (06:28→22:08)
[2017-12-28 06:49] LABS: BASOPHILS % 0.2 % (0.0-2.0); EOSINOPHILS % 2.6 % (0.0-5.0); HEMATOCRIT. 36.5 % (36.0-48.0); HEMOGLOBIN. 11.5 g/dL (12.0-16.0); LYMPHOCYTES % 16.1 % (20.0-50.0); MEAN CORPUSCULAR HEMOGLOBIN 21.7 pg (28.0-32.0); MEAN CORPUSCULAR VOLUME 68.6 fL (81.0-99.0); MEAN PLATELET VOLUME 8.8 fl (7.4-10.4); MONOCYTES % 14.7 % (2.0-8.0); NEUTROPHILS % 66.4 % (40.0-76.0); PLATELET 184 x1000/uL (130-400); RED BLOOD CELL COUNT 5.32 mill/uL (4.2-5.4); RED CELL DISTRIBUTION WIDTH 16.3 % (11.6-14.6)
[2017-12-28] MEDS: INSULIN REGULAR (HUMULIN R) 300UNITS/3ML SUBCUT SCH ×5 (07:20→21:00)
[2017-12-28] MEDS: CLOPIDOGREL 75MG TABLET PO SCH (08:48)
[2017-12-28] MEDS: MINOXIDIL 2.5MG TABLET PO SCH ×2 (08:48→21:00)
[2017-12-28] MEDS: METOPROLOL TARTRATE 25MG TABLET PO SCH ×2 (08:48→21:00)
[2017-12-28] MEDS: RISPERIDONE 0.5MG TABLET PO SCH ×2 (08:50→21:00)
[2017-12-28] MEDS: POTASSIUM CHLORIDE 20MEQ TABLET SR PO SCH (08:51)
[2017-12-28] MEDS: ASPIRIN 81MG EC TABLET PO SCH ×2 (08:51→17:01)
[2017-12-28] MEDS: FUROSEMIDE 40MG/4ML VIAL IVP SCH ×2 (08:51→17:01)
[2017-12-28] MEDS: METRONIDAZOLE 500 MG PREMIX 100 ML IV SCH ×3 (09:01→22:06)
[2017-12-29] VITALS (12 sets, daily range): BP systolic 154–174; BP diastolic 64–105
[2017-12-29] MEDS: MINOXIDIL 2.5MG TABLET PO SCH ×3 (03:28→20:22)
[2017-12-29] MEDS: NITROGLYCERIN OINT 1GM/INCH UDPKT TD SCH ×2 (03:29→09:18)
[2017-12-29] MEDS: BLOOD SUGAR DIAGNOSTIC STRIP TEST SCH ×4 (05:57→20:21)
[2017-12-29] MEDS: CLONIDINE 0.2MG TABLET PO SCH ×3 (06:00→22:20)
[2017-12-29] MEDS: METRONIDAZOLE 500 MG PREMIX 100 ML IV SCH ×3 (06:04→22:19)
[2017-12-29] MEDS: FUROSEMIDE 40MG/4ML VIAL IVP SCH ×2 (06:04→16:45)
[2017-12-29 07:15] LABS: BASOPHILS % 0.2 % (0.0-2.0); EOSINOPHILS % 3.6 % (0.0-5.0); HEMATOCRIT. 37.3 % (36.0-48.0); HEMOGLOBIN. 11.8 g/dL (12.0-16.0); LYMPHOCYTES % 18.2 % (20.0-50.0); MEAN CORPUSCULAR HEMOGLOBIN 21.9 pg (28.0-32.0); MEAN PLATELET VOLUME 9.4 fl (7.4-10.4); MONOCYTES % 12.3 % (2.0-8.0); NEUTROPHILS % 65.7 % (40.0-76.0); PLATELET 188 x1000/uL (130-400); RED CELL DISTRIBUTION WIDTH 16.1 % (11.6-14.6)
[2017-12-29] MEDS: INSULIN REGULAR (HUMULIN R) 300UNITS/3ML SUBCUT SCH ×5 (07:20→16:47)
[2017-12-29] MEDS: ONDANSETRON HCL 4MG/2ML INJ IV PRN (08:12)
[2017-12-29] MEDS: METOPROLOL TARTRATE 25MG TABLET PO SCH ×2 (09:00→20:22)
[2017-12-29] MEDS: RISPERIDONE 0.5MG TABLET PO SCH ×2 (09:17→20:22)
[2017-12-29] MEDS: POTASSIUM CHLORIDE 20MEQ TABLET SR PO SCH (09:17)
[2017-12-29] MEDS: ASPIRIN 81MG EC TABLET PO SCH ×2 (09:17→16:45)
[2017-12-29] MEDS: CLOPIDOGREL 75MG TABLET PO SCH (09:18)
[2017-12-29] MEDS ORDERED: NA PHOS,M-B/NA PHOS,DI-BA ENEMA 118ML PR PRN (09:30)
[2017-12-29] MEDS ORDERED: MAGNESIUM/ALUMINUM HYDROXIDE/SIMETHICONE 30ML UDC PO PRN (11:00)
[2017-12-29] MEDS ORDERED: MAGNESIUM HYDROXIDE 400MG/5ML 30ML UDC PO PRN (11:00)
[2017-12-29] MEDS: DOCUSATE SODIUM 100MG CAPSULE PO SCH ×2 (11:47→16:45)
[2017-12-29] MEDS ORDERED: MAGNESIUM CITRATE 300ML SOLUTION PO NR (12:30)
[2017-12-29] MEDS: LEVOFLOXACIN 500MG PREMIX 100 ML IV SCH (13:46)
[2017-12-29] MEDS ORDERED: INSULIN REGULAR (HUMULIN R) 300UNITS/3ML SUBCUT SCH (21:00)
[2017-12-29] MEDS ORDERED: LACTULOSE 20G/30ML UDC PO PRN (21:00)
[2017-12-30] VITALS (11 sets, daily range): BP systolic 141–185; BP diastolic 69–101
[2017-12-30] MEDS: MINOXIDIL 2.5MG TABLET PO SCH ×3 (01:21→08:12)
[2017-12-30] MEDS: ONDANSETRON HCL 4MG/2ML INJ IV PRN ×2 (01:22→08:05)
[2017-12-30] MEDS: FUROSEMIDE 40MG/4ML VIAL IVP SCH (05:53)
[2017-12-30] MEDS: CLONIDINE 0.2MG TABLET PO SCH ×2 (06:04→13:19)
[2017-12-30] MEDS: BLOOD SUGAR DIAGNOSTIC STRIP TEST SCH ×2 (06:04→11:50)
[2017-12-30] MEDS: METRONIDAZOLE 500 MG PREMIX 100 ML IV SCH (06:06)
[2017-12-30] MEDS: INSULIN REGULAR (HUMULIN R) 300UNITS/3ML SUBCUT SCH ×2 (06:50→11:50)
[2017-12-30 07:11] LABS: BASOPHILS % 0.2 % (0.0-2.0); EOSINOPHILS % 1.8 % (0.0-5.0); HEMATOCRIT. 36.4 % (36.0-48.0); HEMOGLOBIN. 11.5 g/dL (12.0-16.0); LYMPHOCYTES % 15.5 % (20.0-50.0); MEAN CORPUSCULAR HEMOGLOBIN 21.7 pg (28.0-32.0); MEAN CORPUSCULAR VOLUME 68.7 fL (81.0-99.0); MEAN PLATELET VOLUME 9.6 fl (7.4-10.4); MONOCYTES % 10.3 % (2.0-8.0); NEUTROPHILS % 72.2 % (40.0-76.0); PLATELET 203 x1000/uL (130-400)
[2017-12-30] MEDS: POTASSIUM CHLORIDE 20MEQ TABLET SR PO SCH (08:05)
[2017-12-30] MEDS: ASPIRIN 81MG EC TABLET PO SCH (08:06)
[2017-12-30] MEDS: RISPERIDONE 0.5MG TABLET PO SCH ×2 (08:06→08:12)
[2017-12-30] MEDS: DOCUSATE SODIUM 100MG CAPSULE PO SCH ×2 (08:06→08:11)
[2017-12-30] MEDS: CLOPIDOGREL 75MG TABLET PO SCH (08:06)
[2017-12-30] MEDS: METOPROLOL TARTRATE 25MG TABLET PO SCH (08:10)
[2017-12-30 09:09] LABS: ANGIOTENSION CONVERTING ENZYME 74 U/L (14-82); COMPLEMENT C3 153 mg/dL (82-167)
[2017-12-30 17:11] LABS: ANA IFA Positive (.)
[2017-12-30 19:06] LABS: ANTI-DNA DOUBLE STRANDED QUANT 2 IU/mL (0-9)
[2017-12-31] MEDS ORDERED: FUROSEMIDE 40MG/4ML VIAL IVP SCH (09:00)
[2017-12-31 09:06] LABS: ANTI-CARDIOLIPIN AB IGA < 9 APL U/mL (0-11)
[2017-12-31 10:07] LABS: ANTI-CARDIOLIPIN AB IGG < 9 GPL U/mL (0-14)
[2017-12-31 13:11] LABS: ATYPICAL P-ANCA <1:20 titer (Neg:<1:20); CYTOPLASMIC C-ANCA <1:20 titer (Neg:<1:20); PERINUCLEAR P-ANCA <1:20 titer (Neg:<1:20)
== END 2017-12-30 16:15 | disposition home health service (06) | DRG 291 ==
LOC: ER 11:37 → MICUSO 12:31 → EDBEDREQ 12:40 → EDBEDREQTM 12:40 → EDBEDREQSVC 12:40 → ENRESERV 17:53 → 3WST 12-26 22:39
PROVIDERS: ADMIT Family Medicine Adult Medicine; ATTEND Family Medicine Adult Medicine
PROC: B54MZZA Ultrasonography of Right Upper Extremity Veins, Guidance (ICD-10-PCS; principal; 2017-12-24)
PROC: 05HY33Z Insertion of Infusion Device into Upper Vein, Percutaneous Approach (ICD-10-PCS; 2017-12-24)
DX: I13.0 Hypertensive heart and chronic kidney disease with heart failure and stage 1 through stage 4 chronic kidney disease, or unspecified chronic kidney disease (principal); J96.00 Acute respiratory failure, unspecified whether with hypoxia or hypercapnia; I50.23 Acute on chronic systolic (congestive) heart failure; J18.9 Pneumonia, unspecified organism; N17.0 Acute kidney failure with tubular necrosis; I16.1 Hypertensive emergency; I67.4 Hypertensive encephalopathy; I69.354 Hemiplegia and hemiparesis following cerebral infarction affecting left non-dominant side; M33.20 Polymyositis, organ involvement unspecified; R47.01 Aphasia; E44.1 Mild protein-calorie malnutrition; N04.9 Nephrotic syndrome with unspecified morphologic changes; N18.9 Chronic kidney disease, unspecified; D72.810 Lymphocytopenia; E11.22 Type 2 diabetes mellitus with diabetic chronic kidney disease; E11.51 Type 2 diabetes mellitus with diabetic peripheral angiopathy without gangrene; E11.65 Type 2 diabetes mellitus with hyperglycemia; E66.9 Obesity, unspecified; E87.8 Other disorders of electrolyte and fluid balance, not elsewhere classified; E78.00 Pure hypercholesterolemia, unspecified; E78.5 Hyperlipidemia, unspecified; F31.9 Bipolar disorder, unspecified; I25.10 Atherosclerotic heart disease of native coronary artery without angina pectoris; R07.89 Other chest pain; R47.1 Dysarthria and anarthria; I25.5 Ischemic cardiomyopathy; M32.9 Systemic lupus erythematosus, unspecified; I65.23 Occlusion and stenosis of bilateral carotid arteries; I66.29 Occlusion and stenosis of unspecified posterior cerebral artery; F20.9 Schizophrenia, unspecified; D64.9 Anemia, unspecified; R79.82 Elevated C-reactive protein (CRP); K59.00 Constipation, unspecified; Z53.20 Procedure and treatment not carried out because of patient's decision for unspecified reasons; Z88.9 Allergy status to unspecified drugs, medicaments and biological substances; Z91.14 Patient's other noncompliance with medication regimen; Z79.4 Long term (current) use of insulin; Z95.5 Presence of coronary angioplasty implant and graft; Z79.82 Long term (current) use of aspirin; Z79.899 Other long term (current) drug therapy; I25.2 Old myocardial infarction; Z88.8 Allergy status to other drugs, medicaments and biological substances; Z88.0 Allergy status to penicillin; Z91.040 Latex allergy status; Z91.011 Allergy to milk products; Z91.018 Allergy to other foods; Z68.30 Body mass index [BMI] 30.0-30.9, adult
CPT/HCPCS: 36415; 36569; 70450; 70544; 70553; 71045; 72050; 73562; 74018; 76770; 76937; 80048; 80053; 80061; 80305; 81003; 82085; 82164; 82550; 82553; 82570; 82607; 82746; 82962; 83036; 83520; 83690; 83735; 83835; 83880; 84100; 84156; 84300; 84439; 84443; 84481; 84484; 85025; 85379; 85610; 85651; 85730; 86140; 86147; 86160; 86225; 86235; 86256; 92523; 92610; 93005; 93306; 93880; 93970; 94640; 96365; 97110; 97162; 97167; 97530; 99291; C1725; J1170; J1815; J1940; J1956; J2060; J2405; J2920; J2930; J3490; J7050; J7611; J7620; A4315

== ENCOUNTER 2018-01-27 07:11 | Inpatient (IN) | payer MEDICARE, MEDICAID ==
[2018-01-27] VITALS (38 sets, daily range): BP systolic 105–244; BP diastolic 49–146
[~2018-01-27] VITALS: Ht 165.1 cm; Wt 87.1 kg
[~2018-01-27 07:11] MED LIST changes: -CLON0.3T PO; -METO25TA6 PO
[2018-01-27] MEDS ORDERED: IOHEXOL-300 100 ML BOTTLE ONE (07:54)
[2018-01-27] MEDS ORDERED: LIDOCAINE HCL 1% 20ML VIAL (Pyxis) INJ ONE ×2 (07:55→10:21)
[2018-01-27] MEDS ORDERED: IODIXANOL 320MG/ML 100 ML BOTTLE IV ONE (07:55)
[2018-01-27] MEDS ORDERED: MINO2.5T2 MT (08:24)
[2018-01-27] MEDS ORDERED: CLON0.3T PO (08:24)
[2018-01-27] MEDS ORDERED: NEOSTIGMINE METHYLSULFATE 1MG/ML 10 ML VIAL ONE (08:35)
[2018-01-27] MEDS ORDERED: GLYCOPYRROLATE 0.2 MG/ML 2ML VIAL ONE (08:35)
[2018-01-27] MEDS ORDERED: FENTANYL CITRATE/PF 50MCG/ML 2ML VIAL ONE ×2 (08:35→11:26)
[2018-01-27] MEDS ORDERED: MIDAZOLAM HCL 2 MG/2 ML VIAL ONE (08:35)
[2018-01-27] MEDS ORDERED: ROCURONIUM BROMIDE 10MG/ML VIAL 5ML IV ONE (08:35)
[2018-01-27] MEDS ORDERED: PROPOFOL 200MG/20ML VIAL IV ONE (08:35)
[2018-01-27] MEDS ORDERED: ONDANSETRON HCL 4MG/2ML INJ ONE (08:37)
[2018-01-27] MEDS ORDERED: DEXAMETHASONE 4MG/ML 1ML VIAL ONE (08:37)
[2018-01-27] MEDS ORDERED: NITROGLYCERIN 50MG PREMIX 250 ML IV ONE (09:31)
[2018-01-27] MEDS ORDERED: ONDANSETRON HCL 4MG/2ML INJ IV PRN (09:45)
[2018-01-27] MEDS ORDERED: LABETALOL 5MG/ML SYR 20 MG/4 ML SYRINGE IV PRN (09:45)
[2018-01-27] MEDS ORDERED: HYDROMORPHONE HCL/PF 2MG/ML CPJ IV PRN (09:45)
[2018-01-27] MEDS ORDERED: MEPERIDINE HCL/PF 25MG/ML CPJ IV PRN (09:45)
[2018-01-27] MEDS ORDERED: CLOPIDOGREL 75MG TABLET PO ONE (10:30)
[2018-01-27] MEDS ORDERED: ATROPINE SULFATE 1MG/10ML SYR IV PRN (10:30)
[2018-01-27] MEDS ORDERED: DEXTROSE 50% WATER 50ML SYRINGE IV PRN ×2 (10:45→14:00)
[2018-01-27] MEDS ORDERED: NITROGLYCERIN 50MG PREMIX 250 ML IV PRN (10:45)
[2018-01-27] MEDS ORDERED: HEPARIN 1000 UNITS/ML 10ML ONE (10:50)
[2018-01-27] MEDS ORDERED: LIDOCAINE HCL/PF 1% 10 MG/ML 5ML VIAL ONE (10:50)
[2018-01-27] MEDS ORDERED: EPHEDRINE SULFATE 50MG/ML VIAL ONE (10:50)
[2018-01-27] MEDS ORDERED: SODIUM CHLORIDE 0.9% 10ML VIAL ONE (10:50)
[2018-01-27] MEDS ORDERED: VERAPAMIL HCL 2.5 MG/1 ML 2ML VIAL IV ONE ×2 (10:50→11:15)
[2018-01-27] MEDS ORDERED: CLONIDINE 0.3MG TABLET PO SCH (11:15)
[2018-01-27] MEDS: NITROGLYCERIN 0.4MG TABLET SL SL PRN (11:29)
[2018-01-27] MEDS ORDERED: NICARDIPINE 100 MG in DEXT 5% WATER 60 ML IV PRN (11:45)
[2018-01-27] MEDS ORDERED: FENTANYL CITRATE/PF 50MCG/ML 2ML VIAL IV NR (11:45)
[2018-01-27] MEDS ORDERED: VERAPAMIL HCL 2.5 MG/1 ML 2ML VIAL IV NR ×2 (11:45→12:00)
[2018-01-27] MEDS ORDERED: NICARDIPINE 100 MG in SODIUM CHLORIDE 0.9% 60 ML IV PRN ×2 (11:45→12:00)
[2018-01-27] MEDS ORDERED: SODIUM CHLORIDE 0.9% 1,000 ML IV ONE (11:50)
[2018-01-27] MEDS: MINOXIDIL 2.5MG TABLET PO SCH ×2 (12:00→20:44)
[2018-01-27] MEDS: FUROSEMIDE 20MG TABLET PO SCH (12:08)
[2018-01-27] MEDS: NITROGLYCERIN OINT 1GM/INCH UDPKT TD SCH ×3 (12:09→20:00)
[2018-01-27] MEDS ORDERED: BLOOD SUGAR DIAGNOSTIC STRIP TEST SCH (12:50)
[2018-01-27] MEDS: METOPROLOL TARTRATE 25MG TABLET PO SCH ×3 (12:59→16:30)
[2018-01-27] MEDS ORDERED: INSULIN LISPRO 100 UNITS/ML SUBCUT SCH ×2 (13:00→18:20)
[2018-01-27] MEDS ORDERED: NICARDIPINE 100MCG/ML 10ML VIAL (CATH LAB) IV ONE (14:31)
[2018-01-27] MEDS ORDERED: NITROGLYCERIN 50MCG/ML 10ML VIAL (CATH LAB) IV ONE (14:31)
[2018-01-27] MEDS: ALPRAZOLAM 0.25 MG TABLET PO PRN (15:19)
[2018-01-27] MEDS: PANTOPRAZOLE SODIUM 40 MG/VIAL IV SCH (15:20)
[2018-01-27] MEDS ORDERED: INSULIN REGULAR (HUMULIN R) 300UNITS/3ML SUBCUT SCH ×2 (15:45→18:00)
[2018-01-27] MEDS: ACETAMINOPHEN 325MG TABLET PO PRN (16:53)
[2018-01-27] MEDS: BLOOD SUGAR DIAGNOSTIC STRIP TEST SCH ×2 (17:11→21:20)
[2018-01-27] MEDS: CLONIDINE 0.1MG TABLET PO SCH ×2 (17:11→21:00)
[2018-01-27 17:23] LABS: BASOPHILS % 0.5 % (0.0-2.0); EOSINOPHILS % 0.2 % (0.0-5.0); HEMATOCRIT. 37.8 % (36.0-48.0); HEMOGLOBIN. 11.7 g/dL (12.0-16.0); LYMPHOCYTES % 14.4 % (20.0-50.0); MEAN CORPUSCULAR HEMOGLOBIN 21.7 pg (28.0-32.0); MEAN CORPUSCULAR VOLUME 70.1 fL (81.0-99.0); MONOCYTES % 6.2 % (2.0-8.0); NEUTROPHILS % 78.7 % (40.0-76.0); PLATELET 223 x1000/uL (130-400); RED BLOOD CELL COUNT 5.38 mill/uL (4.2-5.4); RED CELL DISTRIBUTION WIDTH 16.8 % (11.6-14.6)
[2018-01-27] MEDS: INSULIN REGULAR (HUMULIN R) 300UNITS/3ML SUBCUT SCH (20:44)
[2018-01-27] MEDS ORDERED: VERAPAMIL HCL 80 MG TABLET PO SCH (22:00)
[2018-01-28] VITALS (75 sets, daily range): BP systolic 108–194; BP diastolic 36–159
[2018-01-28] MEDS: NITROGLYCERIN OINT 1GM/INCH UDPKT TD SCH ×6 (03:40→20:49)
[2018-01-28 05:56] LABS: BASOPHILS % 0.3 % (0.0-2.0); EOSINOPHILS % 1.5 % (0.0-5.0); HEMATOCRIT. 35.5 % (36.0-48.0); HEMOGLOBIN. 10.9 g/dL (12.0-16.0); LYMPHOCYTES % 19.1 % (20.0-50.0); MEAN CORPUSCULAR HEMOGLOBIN 21.3 pg (28.0-32.0); MEAN CORPUSCULAR VOLUME 69.7 fL (81.0-99.0); MEAN PLATELET VOLUME 9.1 fl (7.4-10.4); MONOCYTES % 14.5 % (2.0-8.0); NEUTROPHILS % 64.6 % (40.0-76.0); PLATELET 219 x1000/uL (130-400); RED BLOOD CELL COUNT 5.09 mill/uL (4.2-5.4); RED CELL DISTRIBUTION WIDTH 16.8 % (11.6-14.6)
[2018-01-28 07:32] LABS: CHLORIDE 106 mEq/L (98-107)
[2018-01-28] MEDS: BLOOD SUGAR DIAGNOSTIC STRIP TEST SCH ×4 (07:50→20:44)
[2018-01-28] MEDS ORDERED: INSULIN REGULAR (HUMULIN R) 300UNITS/3ML SUBCUT SCH ×3 (08:00→18:00)
[2018-01-28] MEDS: NITROGLYCERIN 0.4MG TABLET SL SL PRN ×2 (08:01→08:11)
[2018-01-28] MEDS: ASPIRIN 325MG TABLET PO SCH (08:20)
[2018-01-28] MEDS: MINOXIDIL 2.5MG TABLET PO SCH ×2 (08:20→20:50)
[2018-01-28] MEDS: CLONIDINE 0.1MG TABLET PO SCH ×4 (08:20→20:54)
[2018-01-28] MEDS: CLOPIDOGREL 75MG TABLET PO SCH (08:20)
[2018-01-28] MEDS: PANTOPRAZOLE SODIUM 40 MG/VIAL IV SCH (08:20)
[2018-01-28] MEDS: FUROSEMIDE 20MG TABLET PO SCH (08:20)
[2018-01-28] MEDS: INSULIN REGULAR (HUMULIN R) 300UNITS/3ML SUBCUT SCH ×2 (08:37→21:00)
[2018-01-28] MEDS: ALPRAZOLAM 0.25 MG TABLET PO PRN ×2 (10:09→16:10)
[2018-01-29] VITALS (42 sets, daily range): BP systolic 120–182; BP diastolic 45–115
[2018-01-29] MEDS: NITROGLYCERIN OINT 1GM/INCH UDPKT TD SCH ×4 (00:55→12:00)
[2018-01-29] MEDS: ALPRAZOLAM 0.25 MG TABLET PO PRN (03:44)
[2018-01-29] MEDS: INSULIN REGULAR (HUMULIN R) 300UNITS/3ML SUBCUT SCH ×2 (03:54→09:13)
[2018-01-29] MEDS: ACETAMINOPHEN 325MG TABLET PO PRN (04:21)
[2018-01-29] MEDS: NITROGLYCERIN 0.4MG TABLET SL SL PRN (04:24)
[2018-01-29 06:33] LABS: BASOPHILS % 0.9 % (0.0-2.0); EOSINOPHILS % 1.7 % (0.0-5.0); HEMATOCRIT. 36.5 % (36.0-48.0); HEMOGLOBIN. 11.1 g/dL (12.0-16.0); LYMPHOCYTES % 14.2 % (20.0-50.0); MEAN CORPUSCULAR HEMOGLOBIN 21.4 pg (28.0-32.0); MEAN CORPUSCULAR VOLUME 70.1 fL (81.0-99.0); MEAN PLATELET VOLUME 9.2 fl (7.4-10.4); MONOCYTES % 9.5 % (2.0-8.0); NEUTROPHILS % 73.7 % (40.0-76.0); PLATELET 179 x1000/uL (130-400); RED BLOOD CELL COUNT 5.21 mill/uL (4.2-5.4)
[2018-01-29 06:43] LABS: CHLORIDE 104 mEq/L (98-107)
[2018-01-29] MEDS: BLOOD SUGAR DIAGNOSTIC STRIP TEST SCH (08:22)
[2018-01-29] MEDS: MINOXIDIL 2.5MG TABLET PO SCH (08:53)
[2018-01-29] MEDS: PANTOPRAZOLE SODIUM 40 MG/VIAL IV SCH (08:53)
[2018-01-29] MEDS: ASPIRIN 325MG TABLET PO SCH (08:53)
[2018-01-29] MEDS: CLOPIDOGREL 75MG TABLET PO SCH (08:53)
[2018-01-29] MEDS: CLONIDINE 0.1MG TABLET PO SCH (08:54)
[2018-01-29] MEDS: FUROSEMIDE 20MG TABLET PO SCH (08:54)
[2018-01-31 05:24] LABS: BG BASE EXCESS -2.9 mmol/L (-2.0-2.0); BG CARBOXYHEMOGLOBIN 0.4 % (0.5-1.5); BG DEOXYHEMOGLOBIN 1.3 % (0.0-5.0); BG FRACTION INSPIRED OXYGEN 70; BG HCO3 ACT 22.4 mmol/L (22.0-26.0); BG METHEMOGLOBIN 0.2 % (0.0-1.5); BG OXYGEN SATURATION 98.7 % (92.0-98.5); BG OXYHEMOGLOBIN 98.1 % (94.0-97.0); BG PH 7.356 (7.350-7.450); BG SAMPLE SITE RIGHT RADIAL; BG TIDAL VOLUME(mL) 550 mL; BG TOTAL HEMOGLOBIN 11.2 g/dL (12.0-18.0); BG VENT MODE VENT - A/C; BG VENT RATE 14 set
== END 2018-01-29 14:40 | disposition home or self-care (01) | DRG 253 ==
LOC: CCL 07:11 → CVICU 07:12
PROVIDERS: ADMIT Family Medicine Adult Medicine; ATTEND Family Medicine Adult Medicine
PROC: B41F1ZZ Fluoroscopy of Right Lower Extremity Arteries using Low Osmolar Contrast (ICD-10-PCS; 2018-01-27)
PROC: 047K3ZZ Dilation of Right Femoral Artery, Percutaneous Approach (ICD-10-PCS; principal; 2018-01-27 09:00)
DX: E11.51 Type 2 diabetes mellitus with diabetic peripheral angiopathy without gangrene (principal); N17.9 Acute kidney failure, unspecified; E11.22 Type 2 diabetes mellitus with diabetic chronic kidney disease; E78.5 Hyperlipidemia, unspecified; E11.42 Type 2 diabetes mellitus with diabetic polyneuropathy; I65.29 Occlusion and stenosis of unspecified carotid artery; I25.5 Ischemic cardiomyopathy; I25.10 Atherosclerotic heart disease of native coronary artery without angina pectoris; I12.9 Hypertensive chronic kidney disease with stage 1 through stage 4 chronic kidney disease, or unspecified chronic kidney disease; N18.9 Chronic kidney disease, unspecified; Z86.73 Personal history of transient ischemic attack (TIA), and cerebral infarction without residual deficits; Z95.5 Presence of coronary angioplasty implant and graft; Z88.9 Allergy status to unspecified drugs, medicaments and biological substances; Z91.14 Patient's other noncompliance with medication regimen; Z82.49 Family history of ischemic heart disease and other diseases of the circulatory system
CPT/HCPCS: 36415; 36600; 37224; 75710; 80048; 82375; 82805; 82962; 84484; 85347; 93005; A4216; C1725; C1760; C1769; C1893; C1894; C9113; J1100; J1170; J1644; J1815; J2250; J2405; J2704; J2710; J3010; J3490; J7030; J7040; J7050; Q9967

== ENCOUNTER 2018-01-29 15:48 | Inpatient (IN) | payer MEDICARE, MEDICAID ==
[~2018-01-29] VITALS: Ht 165.1 cm; Wt 91.2 kg
[~2018-01-29 15:48] MED LIST changes: +CLON0.3T PO; +MINO2.5T2 MT
[2018-01-29] MEDS ORDERED: MORPHINE SULFATE 4 MG/ML CPJ (NOT FOR IM USE) IV STA (19:07)
[2018-01-29] MEDS ORDERED: SODIUM CHLORIDE 0.9% 1,000 ML IV ONE (19:07)
[2018-01-29] MEDS ORDERED: ONDANSETRON HCL 4MG/2ML INJ IV STA (19:07)
[2018-01-29] MEDS ORDERED: CLONIDINE 0.2MG TABLET PO ONE ×2 (19:45→21:30)
[2018-01-29 21:27] LABS: BASOPHILS % 0.8 % (0.0-2.0); EOSINOPHILS % 1.8 % (0.0-5.0); HEMATOCRIT. 41.1 % (36.0-48.0); HEMOGLOBIN. 12.6 g/dL (12.0-16.0); LYMPHOCYTES % 13.4 % (20.0-50.0); MEAN CORPUSCULAR HEMOGLOBIN 21.1 pg (28.0-32.0); MEAN CORPUSCULAR VOLUME 69.1 fL (81.0-99.0); MONOCYTES % 7.8 % (2.0-8.0); NEUTROPHILS % 76.2 % (40.0-76.0); PLATELET 242 x1000/uL (130-400); RED BLOOD CELL COUNT 5.95 mill/uL (4.2-5.4); RED CELL DISTRIBUTION WIDTH 16.9 % (11.6-14.6)
[2018-01-29] MEDS ORDERED: MORPHINE SULFATE 4 MG/ML CPJ (NOT FOR IM USE) IV ONE (21:30)
[2018-01-29] MEDS ORDERED: NITROGLYCERIN OINT 1GM/INCH UDPKT TD ONE (21:30)
[2018-01-29] MEDS ORDERED: FUROSEMIDE 40MG/4ML VIAL IVP SCH (21:30)
[2018-01-29 21:37] LABS: D-DIMER 2.37 mg/L FEU (<0.50); PARTIAL THROMBOPLASTIN TIME 28.7 sec (23.4-31.0); PROTHROMBIN TIME 9.8 sec (9.1-11.1)
[2018-01-29 21:38] LABS: CHLORIDE 103 mEq/L (98-107)
[2018-01-29] MEDS ORDERED: ACETAMINOPHEN 325MG TABLET PO PRN (22:15)
[2018-01-29] MEDS ORDERED: ONDANSETRON HCL 4MG/2ML INJ IV PRN (22:15)
[2018-01-29 22:40] LABS: PLATELET ESTIMATE NORMAL
[2018-01-29 23:00] VITALS: BP 228/128
[2018-01-30] VITALS (21 sets, daily range): BP systolic 119–228; BP diastolic 38–128
[2018-01-30] MEDS: LORAZEPAM 0.5MG TABLET PO PRN (01:36)
[2018-01-30] MEDS: HYDROMORPHONE HCL/PF 2MG/ML CPJ IV PRN ×3 (01:37→22:16)
[2018-01-30 08:38] LABS: CREATINE KINASE 221 IU/L (26-192); CREATINE KINASE MB FRACTION 26.7 ng/mL (0.5-3.6)
[2018-01-30] MEDS: ENOXAPARIN 30MG/0.3ML SYR SUBCUT SCH (09:24)
[2018-01-30] MEDS ORDERED: CLONIDINE 0.1MG TABLET PO PRN (10:15)
[2018-01-30] MEDS ORDERED: IPRATROPIUM BROMIDE (0.02%) 0.5MG/2.5ML NEB HHN SCH ×2 (10:15→16:45)
[2018-01-30] MEDS ORDERED: POTASSIUM CHLORIDE 20MEQ TABLET SR PO SCH (10:30)
[2018-01-30] MEDS ORDERED: VERAPAMIL HCL 2.5 MG/1 ML 2ML VIAL IV PRN ×2 (10:30→20:00)
[2018-01-30] MEDS: ASPIRIN 81MG EC TABLET PO SCH ×2 (10:57→20:19)
[2018-01-30] MEDS: ALPRAZOLAM 0.25 MG TABLET PO PRN ×2 (10:57→23:32)
[2018-01-30] MEDS: CLOPIDOGREL 75MG TABLET PO SCH (10:58)
[2018-01-30] MEDS: FUROSEMIDE 40MG/4ML VIAL IVP SCH ×2 (11:00→17:30)
[2018-01-30] MEDS ORDERED: MINOXIDIL 2.5MG TABLET NG SCH (11:00)
[2018-01-30] MEDS: IPRATROPIUM/ALBUTEROL 0.5-3(2.5)MG/3ML NEB INH PRN ×2 (11:03→15:14)
[2018-01-30] MEDS: NITROGLYCERIN OINT 1GM/INCH UDPKT TD SCH ×3 (11:13→23:28)
[2018-01-30] MEDS: CLONIDINE 0.2MG TABLET PO SCH ×3 (11:21→20:18)
[2018-01-30] MEDS ORDERED: DEXTROSE 50% WATER 50ML SYRINGE IV PRN (13:00)
[2018-01-30] MEDS ORDERED: INSULIN LISPRO 100 UNITS/ML SUBCUT SCH (13:10)
[2018-01-30] MEDS: BLOOD SUGAR DIAGNOSTIC STRIP TEST SCH ×3 (13:29→21:40)
[2018-01-30] MEDS: INSULIN REGULAR (HUMULIN R) 300UNITS/3ML SUBCUT SCH ×4 (16:50→21:51)
[2018-01-30] MEDS ORDERED: FUROSEMIDE 40MG/4ML VIAL IVP SCH (17:00)
[2018-01-30 17:59] LABS: BG CARBOXYHEMOGLOBIN 1.1 % (0.5-1.5); BG DEOXYHEMOGLOBIN 10.3 % (0.0-5.0); BG HCO3 ACT 23.2 mmol/L (22.0-26.0); BG METHEMOGLOBIN 0.3 % (0.0-1.5); BG OXYGEN SATURATION 89.6 % (92.0-98.5); BG OXYHEMOGLOBIN 88.3 % (94.0-97.0); BG PCO2 40.9 mmHg (35.0-45.0); BG PH 7.371 (7.350-7.450); BG PO2 54.8 mmHg (75.0-100.0); BG SAMPLE SITE RIGHT RADIAL; BG TOTAL HEMOGLOBIN 13.1 g/dL (12.0-18.0); BG VENT MODE NASAL CANNULA
[2018-01-30] MEDS ORDERED: CEFTRIAXONE 2 G PREMIX 50 ML IV SCH (18:30)
[2018-01-30] MEDS ORDERED: VERAPAMIL HCL 2.5 MG/1 ML 2ML VIAL IV NR (18:45)
[2018-01-30] MEDS ORDERED: IPRATROPIUM/ALBUTEROL 0.5-3(2.5)MG/3ML NEB HHN PRN (18:45)
[2018-01-30] MEDS ORDERED: AZITHROMYCIN 500 MG in DEXT 5% WATER 250 ML IV SCH (20:00)
[2018-01-30] MEDS: ACETYLCYSTEINE 100MG/ML 10% VIAL 4ML INH SCH (20:09)
[2018-01-30] MEDS: IPRATROPIUM/ALBUTEROL 0.5-3(2.5)MG/3ML NEB HHN SCH (20:09)
[2018-01-30] MEDS ORDERED: MINOXIDIL 2.5MG TABLET PO SCH (21:00)
[2018-01-30] MEDS ORDERED: LEVOFLOXACIN 500MG PREMIX 100 ML IV SCH (21:00)
[2018-01-30] MEDS ORDERED: AMLODIPINE 5MG TABLET PO SCH (21:00)
[2018-01-30] MEDS ORDERED: POTASSIUM CHLORIDE 20MEQ/PACKET PO SCH (21:30)
[2018-01-30] MEDS: METRONIDAZOLE 500 MG PREMIX 100 ML IV SCH (22:20)
[2018-01-30 22:31] LABS: CREATINE KINASE 673 IU/L (26-192); CREATINE KINASE MB FRACTION 94.6 ng/mL (0.5-3.6)
[2018-01-30] MEDS: AZITHROMYCIN 500 MG in DEXT 5% WATER 250 ML IV SCH (23:28)
[2018-01-31] VITALS (102 sets, daily range): BP systolic 40–191; BP diastolic 19–115
[2018-01-31] MEDS: HYDROMORPHONE HCL/PF 2MG/ML CPJ IV PRN ×2 (00:29→02:30)
[2018-01-31] MEDS: IPRATROPIUM/ALBUTEROL 0.5-3(2.5)MG/3ML NEB HHN SCH ×6 (00:40→20:00)
[2018-01-31] MEDS: ACETYLCYSTEINE 100MG/ML 10% VIAL 4ML INH SCH ×5 (00:40→23:45)
[2018-01-31] MEDS: CLONIDINE 0.2MG TABLET PO SCH (02:27)
[2018-01-31] MEDS: LORAZEPAM 0.5MG TABLET PO PRN (02:27)
[2018-01-31] MEDS ORDERED: NOREPINEPHRINE 8 MG in DEXT 5% WATER 492 ML IV PRN (04:30)
[2018-01-31] MEDS: METRONIDAZOLE 500 MG PREMIX 100 ML IV SCH ×3 (05:29→22:17)
[2018-01-31 05:33] LABS: HEMATOCRIT. 38.5 % (36.0-48.0); HEMOGLOBIN. 11.2 g/dL (12.0-16.0); MEAN CORPUSCULAR HEMOGLOBIN 21.1 pg (28.0-32.0); MEAN CORPUSCULAR VOLUME 72.8 fL (81.0-99.0); MEAN PLATELET VOLUME 9.2 fl (7.4-10.4); PLATELET 244 x1000/uL (130-400); RED BLOOD CELL COUNT 5.29 mill/uL (4.2-5.4); RED CELL DISTRIBUTION WIDTH 17.5 % (11.6-14.6)
[2018-01-31 05:44] LABS: CHLORIDE 105 mEq/L (98-107)
[2018-01-31 05:48] LABS: CREATINE KINASE MB FRACTION 225.7 ng/mL (0.5-3.6); HDL CHOLESTEROL 50 mg/dL (40-59); LDL CHOLESTEROL 169 mg/dL (5-100); PHOSPHORUS 5.3 mg/dL (2.5-4.9)
[2018-01-31] MEDS ORDERED: SODIUM POLYSTYRENE SULFONATE 15 G/60 ML BOT NG NR (06:45)
[2018-01-31] MEDS ORDERED: PROPOFOL 10MG/ML 100ML 100 ML IV PRN (06:45)
[2018-01-31 06:56] LABS: CREATINE KINASE 1241 IU/L (26-192)
[2018-01-31] MEDS ORDERED: SODIUM BICARBONATE 4% (2.4MEQ) 5ML VIAL IV ONE (07:35)
[2018-01-31] MEDS ORDERED: LIDOCAINE HCL 1% 20ML VIAL (Pyxis) INJ ONE (07:35)
[2018-01-31] MEDS: INSULIN REGULAR (HUMULIN R) 300UNITS/3ML SUBCUT SCH ×8 (07:50→18:00)
[2018-01-31] MEDS: BLOOD SUGAR DIAGNOSTIC STRIP TEST SCH ×3 (07:50→17:43)
[2018-01-31 08:55] LABS: PLATELET ESTIMATE NORMAL
[2018-01-31] MEDS ORDERED: SUCCINYLCHOLINE CHLORIDE 200MG/10ML IV ONE (08:58)
[2018-01-31 09:51] LABS: BG BASE EXCESS -2.6 mmol/L (-2.0-2.0); BG CARBOXYHEMOGLOBIN 0.5 % (0.5-1.5); BG DEOXYHEMOGLOBIN 4.4 % (0.0-5.0); BG FRACTION INSPIRED OXYGEN 65; BG HCO3 ACT 22.7 mmol/L (22.0-26.0); BG METHEMOGLOBIN 0.2 % (0.0-1.5); BG OXYGEN SATURATION 95.6 % (92.0-98.5); BG OXYHEMOGLOBIN 94.9 % (94.0-97.0); BG PCO2 41.5 mmHg (35.0-45.0); BG PH 7.356 (7.350-7.450); BG PO2 72.3 mmHg (75.0-100.0); BG SAMPLE SITE RIGHT RADIAL; BG TIDAL VOLUME(mL) 550 mL; BG TOTAL HEMOGLOBIN 11.3 g/dL (12.0-18.0); BG VENT MODE VENT - A/C; BG VENT RATE 14 set
[2018-01-31] MEDS: ASPIRIN 81MG EC TABLET PO SCH ×2 (10:10→21:14)
[2018-01-31] MEDS: CLOPIDOGREL 75MG TABLET PO SCH (10:10)
[2018-01-31] MEDS: FUROSEMIDE 40MG/4ML VIAL IVP SCH ×2 (10:10→18:01)
[2018-01-31] MEDS: ENOXAPARIN 30MG/0.3ML SYR SUBCUT SCH (10:11)
[2018-01-31] MEDS: PANTOPRAZOLE SODIUM 40 MG/VIAL IV SCH (10:16)
[2018-01-31 11:24] LABS: CREATINE KINASE MB FRACTION 238.7 ng/mL (0.5-3.6)
[2018-01-31 14:29] LABS: CLARITY URINE CLOUDY (CLEAR); COLOR URINE YELLOW (YELLOW); KETONES URINE NEGATIVE (NEGATIVE); LEUKOCYTE ESTERASE URINE NEGATIVE (NEGATIVE); NITRITE URINE NEGATIVE (NEGATIVE); OCCULT BLOOD URINE 2+ (NEGATIVE); PROTEIN URINE 1+ (NEGATIVE); SPECIFIC GRAVITY URINE 1.013 (1.005-1.030); UROBILINOGEN URINE 0.2 E.U./dL (0.2-1.0)
[2018-01-31] MEDS: PROPOFOL 10MG/ML 100ML 100 ML IV PRN ×3 (14:37→22:48)
[2018-01-31 15:11] LABS: *AMPHETAMINES SCREEN URINE NEGATIVE (NEGATIVE); *BARBITURATES SCREEN URINE NEGATIVE (NEGATIVE); *BENZODIAZEPINES SCREEN URINE PRESUMTIVE POSITIVE (NEGATIVE); *COCAINE SCREEN URINE NEGATIVE (NEGATIVE)
[2018-01-31 15:12] LABS: CANNABINOID URINE SCREEN NEGATIVE (NEGATIVE); METHADONE URINE SCREEN NEGATIVE (NEGATIVE); OPIATES URINE SCREEN PRESUMTIVE POSITIVE (NEGATIVE); PHENCYCLIDINE URINE SCREEN NEGATIVE (NEGATIVE)
[2018-01-31] MEDS ORDERED: ENOXAPARIN 60MG/0.6ML SYR SUBCUT NR (15:30)
[2018-01-31] MEDS ORDERED: MORPHINE SULFATE 4 MG/ML CPJ (NOT FOR IM USE) IV PRN (16:34)
[2018-01-31] MEDS ORDERED: PHENYLEPHRINE 40 MG in DEXT 5% WATER 246 ML IV PRN (17:00)
[2018-01-31 17:01] LABS: BG BASE EXCESS -0.7 mmol/L (-2.0-2.0); BG CARBOXYHEMOGLOBIN 0.6 % (0.5-1.5); BG DEOXYHEMOGLOBIN 2.8 % (0.0-5.0); BG FRACTION INSPIRED OXYGEN 65; BG HCO3 ACT 25.3 mmol/L (22.0-26.0); BG METHEMOGLOBIN 0.4 % (0.0-1.5); BG OXYGEN SATURATION 97.2 % (92.0-98.5); BG OXYHEMOGLOBIN 96.2 % (94.0-97.0); BG PCO2 47.5 mmHg (35.0-45.0); BG PH 7.345 (7.350-7.450); BG PO2 90.3 mmHg (75.0-100.0); BG SAMPLE SITE LEFT BRACHIAL; BG TIDAL VOLUME(mL) 550 mL; BG TOTAL HEMOGLOBIN 11.8 g/dL (12.0-18.0); BG VENT MODE VENT - A/C; BG VENT RATE 14 set
[2018-01-31] MEDS: AZITHROMYCIN 500 MG in DEXT 5% WATER 250 ML IV SCH (21:14)
[2018-01-31] MEDS: ACETAMINOPHEN 650MG/20.3ML UDC GT PRN (22:17)
[2018-02-01] VITALS (48 sets, daily range): BP systolic 106–195; BP diastolic 67–118
[2018-02-01] MEDS: BLOOD SUGAR DIAGNOSTIC STRIP TEST SCH ×5 (00:08→23:33)
[2018-02-01] MEDS: INSULIN REGULAR (HUMULIN R) 300UNITS/3ML SUBCUT SCH ×15 (00:23→23:45)
[2018-02-01] MEDS: PROPOFOL 10MG/ML 100ML 100 ML IV PRN (03:17)
[2018-02-01] MEDS: IPRATROPIUM/ALBUTEROL 0.5-3(2.5)MG/3ML NEB HHN SCH ×6 (04:09→20:19)
[2018-02-01 05:40] LABS: HEMOGLOBIN. 11.1 g/dL (12.0-16.0); MEAN CORPUSCULAR HEMOGLOBIN 21.6 pg (28.0-32.0); MEAN CORPUSCULAR VOLUME 68.3 fL (81.0-99.0); PLATELET 160 x1000/uL (130-400); RED BLOOD CELL COUNT 5.13 mill/uL (4.2-5.4); RED CELL DISTRIBUTION WIDTH 17.1 % (11.6-14.6)
[2018-02-01 05:41] LABS: CHLORIDE 104 mEq/L (98-107)
[2018-02-01] MEDS: METRONIDAZOLE 500 MG PREMIX 100 ML IV SCH ×2 (06:04→13:50)
[2018-02-01 07:38] LABS: PLATELET ESTIMATE NORMAL
[2018-02-01] MEDS ORDERED: PROPOFOL 10MG/ML 100ML 100 ML IV PRN (08:00)
[2018-02-01] MEDS: CLOPIDOGREL 75MG TABLET PO SCH (08:15)
[2018-02-01] MEDS: ASPIRIN 81MG EC TABLET PO SCH ×2 (08:15→22:13)
[2018-02-01] MEDS: PANTOPRAZOLE SODIUM 40 MG/VIAL IV SCH (08:15)
[2018-02-01] MEDS: ENOXAPARIN 80MG/0.8ML SYR SUBCUT SCH (08:16)
[2018-02-01] MEDS: FUROSEMIDE 40MG/4ML VIAL IVP SCH ×2 (08:16→17:20)
[2018-02-01] MEDS: ACETYLCYSTEINE 100MG/ML 10% VIAL 4ML INH SCH ×3 (08:17→20:20)
[2018-02-01 08:56] LABS: BG BASE EXCESS 1.6 mmol/L (-2.0-2.0); BG CARBOXYHEMOGLOBIN 0.1 % (0.5-1.5); BG DEOXYHEMOGLOBIN 1.5 % (0.0-5.0); BG FRACTION INSPIRED OXYGEN 65; BG HCO3 ACT 25.2 mmol/L (22.0-26.0); BG METHEMOGLOBIN 0.4 % (0.0-1.5); BG OXYGEN SATURATION 98.5 % (92.0-98.5); BG PCO2 35.7 mmHg (35.0-45.0); BG PH 7.466 (7.350-7.450); BG PO2 118.2 mmHg (75.0-100.0); BG SAMPLE SITE RIGHT RADIAL; BG TIDAL VOLUME(mL) 500 mL; BG TOTAL HEMOGLOBIN 11.5 g/dL (12.0-18.0); BG VENT MODE VENT - A/C; BG VENT RATE 16 set
[2018-02-01] MEDS ORDERED: MIDAZOLAM HCL 100 MG in DEXT 5% WATER 80 ML IV PRN (10:00)
[2018-02-01] MEDS ORDERED: OSELTAMIVIR 30MG CAPSULE PO SCH (10:30)
[2018-02-01] MEDS: FENTANYL CITRATE/PF 500 MCG in SODIUM CHLORIDE 0.9% 40 ML IV PRN ×2 (10:55→18:45)
[2018-02-01] MEDS: METOPROLOL TARTRATE 50MG TABLET PO SCH ×2 (10:55→21:37)
[2018-02-01] MEDS ORDERED: AZTREONAM 1G in DEXTROSE 5% WATER 50ML IV NR (16:00)
[2018-02-01] MEDS: CLINDAMYCIN 600 MG in DEXTROSE 5% WATER 50 ML IV SCH ×2 (17:14→23:43)
[2018-02-01] MEDS: AZTREONAM 500 MG in DEXTROSE 5% WATER 50 ML IV SCH (22:04)
[2018-02-01] MEDS: AZITHROMYCIN 500 MG in DEXT 5% WATER 250 ML IV SCH (22:13)
[2018-02-02] VITALS (70 sets, daily range): BP systolic 91–204; BP diastolic 57–155
[2018-02-02] MEDS: ACETYLCYSTEINE 100MG/ML 10% VIAL 4ML INH SCH ×6 (00:44→20:31)
[2018-02-02] MEDS: IPRATROPIUM/ALBUTEROL 0.5-3(2.5)MG/3ML NEB HHN SCH ×6 (00:45→20:31)
[2018-02-02 05:49] LABS: HEMATOCRIT. 32.9 % (36.0-48.0); HEMOGLOBIN. 10.2 g/dL (12.0-16.0); MEAN CORPUSCULAR HEMOGLOBIN 21.3 pg (28.0-32.0); MEAN CORPUSCULAR VOLUME 68.5 fL (81.0-99.0); MEAN PLATELET VOLUME 9.5 fl (7.4-10.4); PLATELET 236 x1000/uL (130-400); RED CELL DISTRIBUTION WIDTH 16.6 % (11.6-14.6)
[2018-02-02] MEDS: INSULIN REGULAR (HUMULIN R) 300UNITS/3ML SUBCUT SCH ×10 (06:00→18:26)
[2018-02-02] MEDS: BLOOD SUGAR DIAGNOSTIC STRIP TEST SCH ×3 (06:25→18:19)
[2018-02-02] MEDS: AZTREONAM 500 MG in DEXTROSE 5% WATER 50 ML IV SCH ×3 (06:41→22:15)
[2018-02-02 07:27] LABS: PLATELET ESTIMATE NORMAL
[2018-02-02] MEDS: PANTOPRAZOLE SODIUM 40 MG/VIAL IV SCH (08:03)
[2018-02-02] MEDS: ENOXAPARIN 80MG/0.8ML SYR SUBCUT SCH (08:04)
[2018-02-02] MEDS: ASPIRIN 81MG EC TABLET PO SCH ×2 (08:05→20:45)
[2018-02-02] MEDS: CLOPIDOGREL 75MG TABLET PO SCH (08:05)
[2018-02-02] MEDS: CLINDAMYCIN 600 MG in DEXTROSE 5% WATER 50 ML IV SCH ×2 (08:05→16:51)
[2018-02-02] MEDS: METOPROLOL TARTRATE 50MG TABLET PO SCH ×2 (08:05→20:45)
[2018-02-02 08:22] LABS: BG BASE EXCESS 2.6 mmol/L (-2.0-2.0); BG CARBOXYHEMOGLOBIN 0.7 % (0.5-1.5); BG DEOXYHEMOGLOBIN 2.4 % (0.0-5.0); BG FRACTION INSPIRED OXYGEN 55; BG HCO3 ACT 25.7 mmol/L (22.0-26.0); BG METHEMOGLOBIN 0.4 % (0.0-1.5); BG OXYGEN SATURATION 97.6 % (92.0-98.5); BG OXYHEMOGLOBIN 96.5 % (94.0-97.0); BG PCO2 34.8 mmHg (35.0-45.0); BG PH 7.487 (7.350-7.450); BG PO2 92.1 mmHg (75.0-100.0); BG SAMPLE SITE LEFT BRACHIAL; BG TIDAL VOLUME(mL) 550 mL; BG TOTAL HEMOGLOBIN 11.8 g/dL (12.0-18.0); BG VENT MODE VENT - A/C; BG VENT RATE 14 set
[2018-02-02] MEDS ORDERED: POTASSIUM CHLORIDE 20MEQ/PACKET PO NR (08:45)
[2018-02-02] MEDS: NITROGLYCERIN OINT 1GM/INCH UDPKT TD SCH ×3 (08:59→20:44)
[2018-02-02] MEDS: FUROSEMIDE 40MG/4ML VIAL IVP SCH (09:00)
[2018-02-02] MEDS ORDERED: LORAZEPAM 2MG/ML CPJ IV PRN (09:30)
[2018-02-02] MEDS: CLONIDINE 0.2MG TABLET NG SCH ×4 (09:45→20:45)
[2018-02-02 19:17] LABS: T4 FREE 0.93 ng/dL (0.76-1.46)
[2018-02-02 19:41] LABS: FOLIC ACID (FOLATE) SERUM 12.7 ng/mL (>5.38)
[2018-02-02] MEDS: AZITHROMYCIN 500 MG in DEXT 5% WATER 250 ML IV SCH (20:45)
[2018-02-03] VITALS (71 sets, daily range): BP systolic 120–191; BP diastolic 46–151
[2018-02-03] MEDS: IPRATROPIUM/ALBUTEROL 0.5-3(2.5)MG/3ML NEB HHN SCH ×6 (00:35→20:12)
[2018-02-03] MEDS: ACETYLCYSTEINE 100MG/ML 10% VIAL 4ML INH SCH ×6 (00:36→20:12)
[2018-02-03] MEDS: BLOOD SUGAR DIAGNOSTIC STRIP TEST SCH ×5 (00:44→23:13)
[2018-02-03] MEDS: CLINDAMYCIN 600 MG in DEXTROSE 5% WATER 50 ML IV SCH ×4 (00:54→23:08)
[2018-02-03] MEDS: INSULIN REGULAR (HUMULIN R) 300UNITS/3ML SUBCUT SCH ×9 (00:55→11:19)
[2018-02-03] MEDS: NITROGLYCERIN OINT 1GM/INCH UDPKT TD SCH ×6 (03:12→23:09)
[2018-02-03] MEDS: AZTREONAM 500 MG in DEXTROSE 5% WATER 50 ML IV SCH ×3 (05:46→21:35)
[2018-02-03 06:19] LABS: INR 1.2; PARTIAL THROMBOPLASTIN TIME 40.5 sec (23.4-31.0)
[2018-02-03 06:23] LABS: HEMATOCRIT. 30.9 % (36.0-48.0); HEMOGLOBIN. 9.6 g/dL (12.0-16.0); MEAN CORPUSCULAR HEMOGLOBIN 21.4 pg (28.0-32.0); MEAN CORPUSCULAR VOLUME 68.5 fL (81.0-99.0); MEAN PLATELET VOLUME 9.3 fl (7.4-10.4); PLATELET 216 x1000/uL (130-400); RED BLOOD CELL COUNT 4.51 mill/uL (4.2-5.4); RED CELL DISTRIBUTION WIDTH 17.2 % (11.6-14.6)
[2018-02-03 06:37] LABS: CHLORIDE 105 mEq/L (98-107)
[2018-02-03 06:57] LABS: CREATINE KINASE 215 IU/L (26-192); CREATINE KINASE MB FRACTION 3.7 ng/mL (0.5-3.6)
[2018-02-03 07:05] LABS: BG CARBOXYHEMOGLOBIN 0.3 % (0.5-1.5); BG DEOXYHEMOGLOBIN 0.7 % (0.0-5.0); BG HCO3 ACT 25.8 mmol/L (22.0-26.0); BG METHEMOGLOBIN 0.2 % (0.0-1.5); BG OXYGEN SATURATION 99.3 % (92.0-98.5); BG OXYHEMOGLOBIN 98.8 % (94.0-97.0); BG PCO2 37.2 mmHg (35.0-45.0); BG PH 7.459 (7.350-7.450); BG PO2 170.6 mmHg (75.0-100.0); BG SAMPLE SITE RIGHT BRACHIAL; BG TIDAL VOLUME(mL) 550 mL; BG TOTAL HEMOGLOBIN 10.7 g/dL (12.0-18.0); BG VENT MODE VENT - A/C; BG VENT RATE 12 set
[2018-02-03 07:34] LABS: PLATELET ESTIMATE NORMAL
[2018-02-03] MEDS: ASPIRIN 81MG EC TABLET PO SCH ×2 (07:39→20:14)
[2018-02-03] MEDS: PANTOPRAZOLE SODIUM 40 MG/VIAL IV SCH (07:39)
[2018-02-03] MEDS: CLOPIDOGREL 75MG TABLET PO SCH (07:39)
[2018-02-03] MEDS ORDERED: LIDOCAINE HCL 1% 20ML VIAL (Pyxis) INJ ONE (08:25)
[2018-02-03] MEDS ORDERED: IODIXANOL 320MG/ML 100 ML BOTTLE IV ONE (08:25)
[2018-02-03] MEDS ORDERED: FENTANYL CITRATE/PF 50MCG/ML 2ML VIAL ONE (08:30)
[2018-02-03] MEDS ORDERED: PROPOFOL 200MG/20ML VIAL IV ONE (08:31)
[2018-02-03] MEDS ORDERED: MIDAZOLAM HCL 5 MG/5 ML VIAL ONE (08:31)
[2018-02-03] MEDS ORDERED: IOHEXOL-300 100 ML BOTTLE ONE (08:54)
[2018-02-03] MEDS ORDERED: NITROGLYCERIN 50MG PREMIX 250 ML IV ONE (08:56)
[2018-02-03] MEDS ORDERED: POTASSIUM CHLORIDE 20MEQ TABLET SR PO SCH (09:00)
[2018-02-03] MEDS: CLONIDINE 0.2MG TABLET NG SCH ×4 (09:00→21:00)
[2018-02-03] MEDS: METOPROLOL TARTRATE 50MG TABLET PO SCH (09:00)
[2018-02-03] MEDS ORDERED: CLOPIDOGREL 75MG TABLET ONE (09:38)
[2018-02-03] MEDS ORDERED: ASPIRIN 325MG TABLET ONE (09:38)
[2018-02-03] MEDS ORDERED: ONDANSETRON HCL 4MG/2ML INJ IV PRN (09:45)
[2018-02-03] MEDS ORDERED: ATROPINE SULFATE 1MG/10ML SYR IV PRN (09:45)
[2018-02-03] MEDS ORDERED: CLOPIDOGREL 75MG TABLET PO NR (09:45)
[2018-02-03] MEDS: NEBIVOLOL HCL 5 MG TABLET PO SCH ×2 (13:43→20:14)
[2018-02-03] MEDS ORDERED: NITROGLYCERIN 50MCG/ML 10ML VIAL (CATH LAB) IV ONE (15:41)
[2018-02-03] MEDS ORDERED: NICARDIPINE 100MCG/ML 10ML VIAL (CATH LAB) IV ONE (15:41)
[2018-02-03] MEDS ORDERED: HEPARIN SODIUM 1,000 UNIT/1ML VIAL IV ONE (16:07)
[2018-02-03] MEDS ORDERED: NEBIVOLOL HCL 5 MG TABLET PO SCH (17:00)
[2018-02-03] MEDS: INSULIN REGULAR HUMAN (CUSTOM DOSE) 100 UNITS/ML 3ML VIAL SUBCUT SCH ×2 (17:42→23:15)
[2018-02-03] MEDS ORDERED: INSULIN REGULAR (HUMULIN R) 300UNITS/3ML SUBCUT SCH ×3 (18:00)
[2018-02-03] MEDS ORDERED: BLOOD SUGAR DIAGNOSTIC STRIP TEST SCH (18:00)
[2018-02-03] MEDS: AZITHROMYCIN 500 MG in DEXT 5% WATER 250 ML IV SCH (20:13)
[2018-02-04] VITALS (75 sets, daily range): BP systolic 105–203; BP diastolic 62–129
[2018-02-04] MEDS: ACETYLCYSTEINE 100MG/ML 10% VIAL 4ML INH SCH ×6 (00:22→20:05)
[2018-02-04] MEDS: IPRATROPIUM/ALBUTEROL 0.5-3(2.5)MG/3ML NEB HHN SCH ×7 (00:22→23:57)
[2018-02-04] MEDS: NITROGLYCERIN 50MG PREMIX 250 ML IV PRN (02:50)
[2018-02-04] MEDS: NITROGLYCERIN OINT 1GM/INCH UDPKT TD SCH ×6 (03:33→23:13)
[2018-02-04] MEDS: MORPHINE SULFATE 4 MG/ML CPJ (NOT FOR IM USE) IV PRN ×2 (04:25→06:43)
[2018-02-04] MEDS: AZTREONAM 500 MG in DEXTROSE 5% WATER 50 ML IV SCH ×3 (05:28→21:05)
[2018-02-04] MEDS: BLOOD SUGAR DIAGNOSTIC STRIP TEST SCH ×4 (05:32→23:12)
[2018-02-04] MEDS: INSULIN REGULAR HUMAN (CUSTOM DOSE) 100 UNITS/ML 3ML VIAL SUBCUT SCH ×4 (05:35→23:17)
[2018-02-04 05:50] LABS: BASOPHILS % 0.4 % (0.0-2.0); EOSINOPHILS % 1.8 % (0.0-5.0); HEMATOCRIT. 32.3 % (36.0-48.0); HEMOGLOBIN. 9.9 g/dL (12.0-16.0); LYMPHOCYTES % 8.7 % (20.0-50.0); MEAN CORPUSCULAR HEMOGLOBIN 21.1 pg (28.0-32.0); MEAN CORPUSCULAR VOLUME 68.9 fL (81.0-99.0); MONOCYTES % 12.9 % (2.0-8.0); NEUTROPHILS % 76.2 % (40.0-76.0); PLATELET 265 x1000/uL (130-400); RED BLOOD CELL COUNT 4.69 mill/uL (4.2-5.4); RED CELL DISTRIBUTION WIDTH 16.8 % (11.6-14.6)
[2018-02-04 07:15] LABS: PHOSPHORUS 3.2 mg/dL (2.5-4.9)
[2018-02-04] MEDS: CLINDAMYCIN 600 MG in DEXTROSE 5% WATER 50 ML IV SCH (07:53)
[2018-02-04] MEDS: PANTOPRAZOLE SODIUM 40 MG/VIAL IV SCH (07:54)
[2018-02-04] MEDS: CLONIDINE 0.2MG TABLET NG SCH ×2 (07:54→12:25)
[2018-02-04] MEDS: ASPIRIN 81MG EC TABLET PO SCH ×2 (07:54→20:38)
[2018-02-04] MEDS: CLOPIDOGREL 75MG TABLET PO SCH (07:54)
[2018-02-04] MEDS: NEBIVOLOL HCL 5 MG TABLET PO SCH ×2 (08:08→20:38)
[2018-02-04 08:10] LABS: PLATELET ESTIMATE NORMAL
[2018-02-04 08:12] LABS: BG BASE EXCESS -0.2 mmol/L (-2.0-2.0); BG CARBOXYHEMOGLOBIN 0.2 % (0.5-1.5); BG DEOXYHEMOGLOBIN 1.3 % (0.0-5.0); BG FRACTION INSPIRED OXYGEN 40; BG METHEMOGLOBIN 0.1 % (0.0-1.5); BG OXYGEN SATURATION 98.7 % (92.0-98.5); BG OXYHEMOGLOBIN 98.4 % (94.0-97.0); BG PCO2 37.4 mmHg (35.0-45.0); BG PH 7.426 (7.350-7.450); BG SAMPLE SITE LEFT RADIAL; BG TIDAL VOLUME(mL) 550 mL; BG TOTAL HEMOGLOBIN 9.6 g/dL (12.0-18.0); BG VENT MODE VENT - A/C; BG VENT RATE 10 set
[2018-02-04] MEDS: CLINDAMYCIN 600MG PREMIX 50 ML IV SCH ×2 (16:17→23:08)
[2018-02-04] MEDS ORDERED: CLONIDINE 0.1MG TABLET NG SCH (17:00)
[2018-02-04] MEDS: AZITHROMYCIN 500 MG in DEXT 5% WATER 250 ML IV SCH (20:37)
[2018-02-05] VITALS (84 sets, daily range): BP systolic 97–194; BP diastolic 63–136
[2018-02-05] MEDS: NITROGLYCERIN OINT 1GM/INCH UDPKT TD SCH ×6 (03:06→23:20)
[2018-02-05] MEDS: IPRATROPIUM/ALBUTEROL 0.5-3(2.5)MG/3ML NEB HHN SCH ×5 (04:17→20:16)
[2018-02-05] MEDS: AZTREONAM 500 MG in DEXTROSE 5% WATER 50 ML IV SCH ×3 (05:21→21:27)
[2018-02-05] MEDS: BLOOD SUGAR DIAGNOSTIC STRIP TEST SCH ×4 (05:24→23:25)
[2018-02-05] MEDS: INSULIN REGULAR HUMAN (CUSTOM DOSE) 100 UNITS/ML 3ML VIAL SUBCUT SCH ×4 (05:29→23:30)
[2018-02-05 06:11] LABS: HEMATOCRIT. 28.8 % (36.0-48.0); HEMOGLOBIN. 8.9 g/dL (12.0-16.0); MEAN CORPUSCULAR HEMOGLOBIN 21.1 pg (28.0-32.0); MEAN CORPUSCULAR VOLUME 68.5 fL (81.0-99.0); MEAN PLATELET VOLUME 8.7 fl (7.4-10.4); PLATELET 260 x1000/uL (130-400); RED CELL DISTRIBUTION WIDTH 16.8 % (11.6-14.6)
[2018-02-05 07:34] LABS: CHLORIDE 107 mEq/L (98-107)
[2018-02-05] MEDS: NITROGLYCERIN 50MG PREMIX 250 ML IV PRN (09:15)
[2018-02-05] MEDS ORDERED: POTASSIUM CHLORIDE 20MEQ/PACKET PO SCH (09:30)
[2018-02-05] MEDS: CLINDAMYCIN 600MG PREMIX 50 ML IV SCH ×3 (09:39→23:19)
[2018-02-05] MEDS: PANTOPRAZOLE SODIUM 40 MG/VIAL IV SCH (09:39)
[2018-02-05] MEDS: ASPIRIN 81MG EC TABLET PO SCH ×2 (09:39→20:26)
[2018-02-05] MEDS: CLOPIDOGREL 75MG TABLET PO SCH (09:39)
[2018-02-05] MEDS: NEBIVOLOL HCL 5 MG TABLET PO SCH ×2 (09:40→20:27)
[2018-02-05 10:27] LABS: NUCLEATED RED BLOOD CELLS 3 /100 WBC
[2018-02-05 10:28] LABS: PLATELET ESTIMATE NORMAL
[2018-02-05] MEDS: CLONIDINE 0.1MG TABLET NG SCH ×2 (13:17→21:27)
[2018-02-05 15:55] LABS: TOTAL IRON BINDING CAPACITY 192 ug/dL (250-450)
[2018-02-05] MEDS: AZITHROMYCIN 500 MG in DEXT 5% WATER 250 ML IV SCH (20:26)
[2018-02-06] VITALS (102 sets, daily range): BP systolic 69–206; BP diastolic 41–136
[2018-02-06] MEDS: IPRATROPIUM/ALBUTEROL 0.5-3(2.5)MG/3ML NEB HHN SCH ×6 (00:43→20:32)
[2018-02-06] MEDS: NITROGLYCERIN OINT 1GM/INCH UDPKT TD SCH ×5 (03:21→20:20)
[2018-02-06] MEDS: BLOOD SUGAR DIAGNOSTIC STRIP TEST SCH ×3 (05:24→18:00)
[2018-02-06] MEDS: INSULIN REGULAR HUMAN (CUSTOM DOSE) 100 UNITS/ML 3ML VIAL SUBCUT SCH ×4 (05:24→21:23)
[2018-02-06] MEDS: AZTREONAM 500 MG in DEXTROSE 5% WATER 50 ML IV SCH ×3 (05:27→21:20)
[2018-02-06] MEDS: CLONIDINE 0.1MG TABLET NG SCH ×3 (05:34→21:19)
[2018-02-06 06:35] LABS: HEMOGLOBIN. 8.3 g/dL (12.0-16.0); MEAN CORPUSCULAR HEMOGLOBIN 21.3 pg (28.0-32.0); MEAN CORPUSCULAR VOLUME 69.6 fL (81.0-99.0); MEAN PLATELET VOLUME 8.8 fl (7.4-10.4); PLATELET 241 x1000/uL (130-400); RED BLOOD CELL COUNT 3.88 mill/uL (4.2-5.4)
[2018-02-06 06:52] LABS: CHLORIDE 109 mEq/L (98-107)
[2018-02-06 07:39] LABS: NUCLEATED RED BLOOD CELLS 2 /100 WBC; PLATELET ESTIMATE NORMAL
[2018-02-06 08:18] LABS: BG BASE EXCESS 2.2 mmol/L (-2.0-2.0); BG CARBOXYHEMOGLOBIN 0.5 % (0.5-1.5); BG DEOXYHEMOGLOBIN 1.5 % (0.0-5.0); BG FRACTION INSPIRED OXYGEN 30; BG HCO3 ACT 25.8 mmol/L (22.0-26.0); BG METHEMOGLOBIN 0.3 % (0.0-1.5); BG OXYGEN SATURATION 98.5 % (92.0-98.5); BG OXYHEMOGLOBIN 97.7 % (94.0-97.0); BG PCO2 36.6 mmHg (35.0-45.0); BG PH 7.466 (7.350-7.450); BG PO2 116.2 mmHg (75.0-100.0); BG SAMPLE SITE RIGHT RADIAL; BG TIDAL VOLUME(mL) 500 mL; BG TOTAL HEMOGLOBIN 11.4 g/dL (12.0-18.0); BG VENT MODE VENT - A/C; BG VENT RATE 10 set
[2018-02-06] MEDS: PANTOPRAZOLE SODIUM 40 MG/VIAL IV SCH (09:05)
[2018-02-06] MEDS: ACETAMINOPHEN 650MG/20.3ML UDC GT PRN (09:06)
[2018-02-06] MEDS: CLINDAMYCIN 600MG PREMIX 50 ML IV SCH ×2 (09:07→16:55)
[2018-02-06] MEDS: ASPIRIN 81MG EC TABLET PO SCH ×2 (10:25→21:18)
[2018-02-06] MEDS: CLOPIDOGREL 75MG TABLET PO SCH (10:25)
[2018-02-06] MEDS: IRON SUCROSE COMPLEX 100 MG/5 ML ML IV SCH (10:36)
[2018-02-06] MEDS: NEBIVOLOL HCL 5 MG TABLET PO SCH ×2 (11:18→21:18)
[2018-02-06] MEDS: NITROGLYCERIN 50MG PREMIX 250 ML IV PRN ×2 (12:59→16:56)
[2018-02-06] MEDS: LORAZEPAM 2MG/ML CPJ IM PRN (22:29)
[2018-02-07] VITALS (95 sets, daily range): BP systolic 96–184; BP diastolic 52–123
[2018-02-07] MEDS: CLINDAMYCIN 600MG PREMIX 50 ML IV SCH ×2 (00:02→09:13)
[2018-02-07] MEDS: NITROGLYCERIN OINT 1GM/INCH UDPKT TD SCH ×7 (00:02→23:55)
[2018-02-07] MEDS: BLOOD SUGAR DIAGNOSTIC STRIP TEST SCH ×5 (00:03→23:47)
[2018-02-07] MEDS: IPRATROPIUM/ALBUTEROL 0.5-3(2.5)MG/3ML NEB HHN SCH ×5 (00:52→20:25)
[2018-02-07] MEDS: CLONIDINE 0.1MG TABLET NG SCH (05:35)
[2018-02-07] MEDS: AZTREONAM 500 MG in DEXTROSE 5% WATER 50 ML IV SCH ×3 (05:35→21:55)
[2018-02-07 05:40] LABS: HEMOGLOBIN. 8.3 g/dL (12.0-16.0); MEAN CORPUSCULAR HEMOGLOBIN 21.4 pg (28.0-32.0); MEAN CORPUSCULAR VOLUME 69.1 fL (81.0-99.0); MEAN PLATELET VOLUME 8.8 fl (7.4-10.4); PLATELET 281 x1000/uL (130-400); RED CELL DISTRIBUTION WIDTH 16.9 % (11.6-14.6)
[2018-02-07 06:25] LABS: CHLORIDE 109 mEq/L (98-107)
[2018-02-07 07:16] LABS: NUCLEATED RED BLOOD CELLS 2 /100 WBC; PLATELET ESTIMATE NORMAL
[2018-02-07] MEDS: INSULIN REGULAR HUMAN (CUSTOM DOSE) 100 UNITS/ML 3ML VIAL SUBCUT SCH ×4 (08:20→23:54)
[2018-02-07] MEDS: NITROGLYCERIN 50MG PREMIX 250 ML IV PRN ×2 (09:13→21:55)
[2018-02-07] MEDS: PANTOPRAZOLE SODIUM 40 MG/VIAL IV SCH (09:52)
[2018-02-07] MEDS: IRON SUCROSE COMPLEX 100 MG/5 ML ML IV SCH (09:52)
[2018-02-07] MEDS: LORAZEPAM 2MG/ML CPJ IM PRN (09:53)
[2018-02-07] MEDS: CLOPIDOGREL 75MG TABLET PO SCH (09:53)
[2018-02-07] MEDS: ASPIRIN 81MG EC TABLET PO SCH ×2 (09:56→20:30)
[2018-02-07] MEDS: NEBIVOLOL HCL 5 MG TABLET PO SCH ×2 (09:56→20:30)
[2018-02-07] MEDS: CLONIDINE 0.2MG TABLET NG SCH ×3 (12:25→20:30)
[2018-02-07] MEDS: FERROUS SULFATE 300MG/5ML UDC PO SCH ×2 (12:26→18:06)
[2018-02-07] MEDS: CLINDAMYCIN 600 MG in DEXTROSE 5% WATER 50 ML IV SCH ×2 (16:09→23:54)
[2018-02-08] VITALS (88 sets, daily range): BP systolic 120–212; BP diastolic 57–138
[2018-02-08] MEDS: IPRATROPIUM/ALBUTEROL 0.5-3(2.5)MG/3ML NEB HHN SCH ×6 (00:32→20:53)
[2018-02-08] MEDS: NITROGLYCERIN OINT 1GM/INCH UDPKT TD SCH ×6 (06:03→23:26)
[2018-02-08] MEDS: INSULIN REGULAR HUMAN (CUSTOM DOSE) 100 UNITS/ML 3ML VIAL SUBCUT SCH ×4 (06:04→23:20)
[2018-02-08] MEDS: AZTREONAM 500 MG in DEXTROSE 5% WATER 50 ML IV SCH ×3 (06:05→21:04)
[2018-02-08 06:06] LABS: HEMATOCRIT. 26.5 % (36.0-48.0); HEMOGLOBIN. 8.2 g/dL (12.0-16.0); MEAN CORPUSCULAR HEMOGLOBIN 21.5 pg (28.0-32.0); MEAN CORPUSCULAR VOLUME 69.7 fL (81.0-99.0); MEAN PLATELET VOLUME 8.9 fl (7.4-10.4); PLATELET 320 x1000/uL (130-400); RED BLOOD CELL COUNT 3.81 mill/uL (4.2-5.4); RED CELL DISTRIBUTION WIDTH 17.3 % (11.6-14.6)
[2018-02-08] MEDS: BLOOD SUGAR DIAGNOSTIC STRIP TEST SCH ×4 (06:16→23:21)
[2018-02-08 07:47] LABS: BG BASE EXCESS 1.1 mmol/L (-2.0-2.0); BG CARBOXYHEMOGLOBIN 0.5 % (0.5-1.5); BG DEOXYHEMOGLOBIN 3.7 % (0.0-5.0); BG FRACTION INSPIRED OXYGEN 30; BG HCO3 ACT 25.2 mmol/L (22.0-26.0); BG METHEMOGLOBIN 0.3 % (0.0-1.5); BG OXYGEN SATURATION 96.3 % (92.0-98.5); BG OXYHEMOGLOBIN 95.5 % (94.0-97.0); BG PCO2 38.1 mmHg (35.0-45.0); BG PH 7.439 (7.350-7.450); BG PO2 84.9 mmHg (75.0-100.0); BG SAMPLE SITE RIGHT RADIAL; BG TIDAL VOLUME(mL) 550 mL; BG VENT MODE VENT - A/C; BG VENT RATE 10 set
[2018-02-08] MEDS: PANTOPRAZOLE SODIUM 40 MG/VIAL IV SCH (08:29)
[2018-02-08] MEDS: FERROUS SULFATE 300MG/5ML UDC PO SCH ×3 (08:29→17:19)
[2018-02-08] MEDS: CLINDAMYCIN 600 MG in DEXTROSE 5% WATER 50 ML IV SCH ×2 (08:29→16:04)
[2018-02-08] MEDS: IRON SUCROSE COMPLEX 100 MG/5 ML ML IV SCH (08:29)
[2018-02-08] MEDS: NEBIVOLOL HCL 5 MG TABLET PO SCH ×2 (08:30→20:09)
[2018-02-08] MEDS: CLOPIDOGREL 75MG TABLET PO SCH (08:30)
[2018-02-08] MEDS: CLONIDINE 0.2MG TABLET NG SCH ×4 (08:30→20:58)
[2018-02-08] MEDS: ASPIRIN 81MG EC TABLET PO SCH ×2 (08:30→20:09)
[2018-02-08] MEDS: NITROGLYCERIN 50MG PREMIX 250 ML IV PRN ×3 (08:31→20:08)
[2018-02-08] MEDS ORDERED: FUROSEMIDE 20MG TABLET PO SCH (10:15)
[2018-02-08 10:17] LABS: NUCLEATED RED BLOOD CELLS 7 /100 WBC; PLATELET ESTIMATE NORMAL
[2018-02-08] MEDS: MINOXIDIL 2.5MG TABLET PO SCH ×2 (10:23→20:09)
[2018-02-08] MEDS: FUROSEMIDE 20MG TABLET PO SCH (10:24)
[2018-02-09] VITALS (104 sets, daily range): BP systolic 93–185; BP diastolic 44–139
[2018-02-09] MEDS: IPRATROPIUM/ALBUTEROL 0.5-3(2.5)MG/3ML NEB HHN SCH ×6 (00:19→20:07)
[2018-02-09] MEDS: NITROGLYCERIN OINT 1GM/INCH UDPKT TD SCH ×5 (03:25→20:59)
[2018-02-09] MEDS: NITROGLYCERIN 50MG PREMIX 250 ML IV PRN (03:49)
[2018-02-09] MEDS: BLOOD SUGAR DIAGNOSTIC STRIP TEST SCH ×4 (05:17→21:18)
[2018-02-09] MEDS: INSULIN REGULAR HUMAN (CUSTOM DOSE) 100 UNITS/ML 3ML VIAL SUBCUT SCH ×4 (05:23→21:21)
[2018-02-09 05:35] LABS: BASOPHILS % 0.5 % (0.0-2.0); EOSINOPHILS % 1.3 % (0.0-5.0); HEMOGLOBIN. 7.9 g/dL (12.0-16.0); LYMPHOCYTES % 7.3 % (20.0-50.0); MEAN CORPUSCULAR HEMOGLOBIN 21.5 pg (28.0-32.0); MEAN CORPUSCULAR VOLUME 70.5 fL (81.0-99.0); MEAN PLATELET VOLUME 8.8 fl (7.4-10.4); NEUTROPHILS % 79.9 % (40.0-76.0); PLATELET 300 x1000/uL (130-400); RED BLOOD CELL COUNT 3.69 mill/uL (4.2-5.4); RED CELL DISTRIBUTION WIDTH 17.3 % (11.6-14.6)
[2018-02-09 08:30] LABS: BG BASE EXCESS 0.8 mmol/L (-2.0-2.0); BG CARBOXYHEMOGLOBIN 0.9 % (0.5-1.5); BG DEOXYHEMOGLOBIN 2.9 % (0.0-5.0); BG FRACTION INSPIRED OXYGEN 30; BG HCO3 ACT 24.8 mmol/L (22.0-26.0); BG METHEMOGLOBIN 0.6 % (0.0-1.5); BG OXYGEN SATURATION 97.1 % (92.0-98.5); BG OXYHEMOGLOBIN 95.6 % (94.0-97.0); BG PH 7.444 (7.350-7.450); BG PO2 87.6 mmHg (75.0-100.0); BG SAMPLE SITE RIGHT RADIAL; BG TIDAL VOLUME(mL) 550 mL; BG TOTAL HEMOGLOBIN 8.7 g/dL (12.0-18.0); BG VENT MODE VENT - A/C; BG VENT RATE 12 set
[2018-02-09] MEDS: FERROUS SULFATE 300MG/5ML UDC PO SCH ×3 (08:39→17:57)
[2018-02-09] MEDS: PANTOPRAZOLE SODIUM 40 MG/VIAL IV SCH (08:39)
[2018-02-09] MEDS: FUROSEMIDE 20MG TABLET PO SCH (08:40)
[2018-02-09] MEDS: CLONIDINE 0.2MG TABLET NG SCH (08:40)
[2018-02-09] MEDS: NEBIVOLOL HCL 5 MG TABLET PO SCH ×2 (08:40→21:00)
[2018-02-09] MEDS: MINOXIDIL 2.5MG TABLET PO SCH ×2 (08:41→21:00)
[2018-02-09] MEDS: ASPIRIN 81MG EC TABLET PO SCH ×2 (10:47→21:00)
[2018-02-09] MEDS: CLOPIDOGREL 75MG TABLET PO SCH (10:47)
[2018-02-09 13:13] LABS: BG BASE EXCESS 0.3 mmol/L (-2.0-2.0); BG CARBOXYHEMOGLOBIN 0.7 % (0.5-1.5); BG DEOXYHEMOGLOBIN 2.5 % (0.0-5.0); BG FRACTION INSPIRED OXYGEN 30; BG HCO3 ACT 24.6 mmol/L (22.0-26.0); BG METHEMOGLOBIN 0.2 % (0.0-1.5); BG OXYGEN SATURATION 97.5 % (92.0-98.5); BG OXYHEMOGLOBIN 96.6 % (94.0-97.0); BG PCO2 38.1 mmHg (35.0-45.0); BG PH 7.428 (7.350-7.450); BG PO2 98.9 mmHg (75.0-100.0); BG PRESSURE SUPPORT 8; BG SAMPLE SITE RIGHT RADIAL; BG TOTAL HEMOGLOBIN 9.2 g/dL (12.0-18.0); BG VENT MODE VENT - CPAP
[2018-02-09] MEDS: CLONIDINE 0.3MG TABLET NG SCH ×3 (13:23→21:01)
[2018-02-09] MEDS ORDERED: LIDOCAINE HCL/PF 1% 2ML VIAL ONE ×2 (14:11→14:26)
[2018-02-09] MEDS ORDERED: RACEPINEPHRINE 2.25% 0.5ML NEB VIAL ONE (14:40)
[2018-02-09] MEDS: RACEPINEPHRINE 2.25% 0.5ML NEB VIAL HHN NR ×2 (15:11→16:10)
[2018-02-09] MEDS: FUROSEMIDE 40MG/4ML VIAL IVP SCH (15:50)
[2018-02-09 17:24] LABS: BG BASE EXCESS 1.7 mmol/L (-2.0-2.0); BG CARBOXYHEMOGLOBIN 0.6 % (0.5-1.5); BG DEOXYHEMOGLOBIN 1.8 % (0.0-5.0); BG FRACTION INSPIRED OXYGEN 35; BG HCO3 ACT 26.5 mmol/L (22.0-26.0); BG METHEMOGLOBIN 0.1 % (0.0-1.5); BG OXYGEN SATURATION 98.2 % (92.0-98.5); BG OXYHEMOGLOBIN 97.5 % (94.0-97.0); BG PCO2 42.8 mmHg (35.0-45.0); BG PO2 109.3 mmHg (75.0-100.0); BG SAMPLE SITE RIGHT RADIAL; BG TOTAL HEMOGLOBIN 9.4 g/dL (12.0-18.0); BG VENT MODE MASK - AEROSOL
[2018-02-10] VITALS (89 sets, daily range): BP systolic 86–222; BP diastolic 49–147
[2018-02-10] MEDS: IPRATROPIUM/ALBUTEROL 0.5-3(2.5)MG/3ML NEB HHN SCH ×7 (00:57→23:59)
[2018-02-10 05:47] LABS: HEMATOCRIT. 28.8 % (36.0-48.0); HEMOGLOBIN. 8.6 g/dL (12.0-16.0); MEAN CORPUSCULAR HEMOGLOBIN 21.6 pg (28.0-32.0); MEAN CORPUSCULAR VOLUME 72.5 fL (81.0-99.0); MEAN PLATELET VOLUME 8.8 fl (7.4-10.4); PLATELET 299 x1000/uL (130-400); RED BLOOD CELL COUNT 3.97 mill/uL (4.2-5.4); RED CELL DISTRIBUTION WIDTH 17.2 % (11.6-14.6)
[2018-02-10 06:00] LABS: CHLORIDE 107 mEq/L (98-107)
[2018-02-10] MEDS: BLOOD SUGAR DIAGNOSTIC STRIP TEST SCH ×3 (06:29→18:18)
[2018-02-10] MEDS: NITROGLYCERIN OINT 1GM/INCH UDPKT TD SCH ×6 (06:37→20:00)
[2018-02-10 06:56] LABS: NUCLEATED RED BLOOD CELLS 2 /100 WBC
[2018-02-10 06:57] LABS: PLATELET ESTIMATE NORMAL
[2018-02-10 07:12] LABS: BG BASE EXCESS 1.8 mmol/L (-2.0-2.0); BG CARBOXYHEMOGLOBIN 0.8 % (0.5-1.5); BG DEOXYHEMOGLOBIN 6.3 % (0.0-5.0); BG HCO3 ACT 27.9 mmol/L (22.0-26.0); BG METHEMOGLOBIN 0.5 % (0.0-1.5); BG OXYGEN SATURATION 93.6 % (92.0-98.5); BG OXYHEMOGLOBIN 92.4 % (94.0-97.0); BG PCO2 51.3 mmHg (35.0-45.0); BG PH 7.354 (7.350-7.450); BG PO2 69.9 mmHg (75.0-100.0); BG SAMPLE SITE RIGHT RADIAL; BG TOTAL HEMOGLOBIN 10.7 g/dL (12.0-18.0); BG VENT MODE NASAL CANNULA
[2018-02-10] MEDS: FERROUS SULFATE 300MG/5ML UDC PO SCH ×3 (07:56→18:36)
[2018-02-10] MEDS: PANTOPRAZOLE SODIUM 40 MG/VIAL IV SCH (07:56)
[2018-02-10] MEDS: CLOPIDOGREL 75MG TABLET PO SCH (07:56)
[2018-02-10] MEDS: FUROSEMIDE 40MG/4ML VIAL IVP SCH (07:56)
[2018-02-10] MEDS: ASPIRIN 81MG EC TABLET PO SCH ×3 (07:57→21:13)
[2018-02-10] MEDS: NEBIVOLOL HCL 5 MG TABLET PO SCH ×2 (07:57→20:45)
[2018-02-10] MEDS: MINOXIDIL 2.5MG TABLET PO SCH ×2 (07:58→20:46)
[2018-02-10] MEDS: CLONIDINE 0.3MG TABLET NG SCH ×4 (07:58→20:45)
[2018-02-10] MEDS: INSULIN REGULAR HUMAN (CUSTOM DOSE) 100 UNITS/ML 3ML VIAL SUBCUT SCH ×3 (08:20→18:37)
[2018-02-10 08:53] LABS: BG BASE EXCESS 0.6 mmol/L (-2.0-2.0); BG CARBOXYHEMOGLOBIN 0.2 % (0.5-1.5); BG DEOXYHEMOGLOBIN 1.2 % (0.0-5.0); BG HCO3 ACT 26.2 mmol/L (22.0-26.0); BG METHEMOGLOBIN 0.4 % (0.0-1.5); BG OXYGEN SATURATION 98.8 % (92.0-98.5); BG OXYHEMOGLOBIN 98.2 % (94.0-97.0); BG PCO2 47.3 mmHg (35.0-45.0); BG PH 7.362 (7.350-7.450); BG PO2 148.1 mmHg (75.0-100.0); BG SAMPLE SITE RIGHT RADIAL; BG TOTAL HEMOGLOBIN 9.2 g/dL (12.0-18.0); BG VENT MODE MASK - AEROSOL
[2018-02-10] MEDS ORDERED: ETOMIDATE 2MG/ML 10ML VIAL IV ONE (09:00)
[2018-02-10] MEDS ORDERED: VECURONIUM BROMIDE 10 MG/VIAL IV ONE (09:00)
[2018-02-10] MEDS ORDERED: SODIUM CHLORIDE 0.9% 10ML VIAL ONE (09:00)
[2018-02-10] MEDS ORDERED: FENTANYL CITRATE/PF 500 MCG in SODIUM CHLORIDE 0.9% 40 ML IV PRN (09:15)
[2018-02-10] MEDS ORDERED: MIDAZOLAM HCL 100 MG in DEXT 5% WATER 80 ML IV PRN (09:15)
[2018-02-10] MEDS: NITROGLYCERIN 50MG PREMIX 250 ML IV PRN (09:16)
[2018-02-10 09:41] LABS: BG BASE EXCESS 0.4 mmol/L (-2.0-2.0); BG CARBOXYHEMOGLOBIN 0.6 % (0.5-1.5); BG DEOXYHEMOGLOBIN 0.6 % (0.0-5.0); BG FRACTION INSPIRED OXYGEN 50; BG HCO3 ACT 24.7 mmol/L (22.0-26.0); BG METHEMOGLOBIN 0.4 % (0.0-1.5); BG OXYGEN SATURATION 99.4 % (92.0-98.5); BG OXYHEMOGLOBIN 98.4 % (94.0-97.0); BG PCO2 38.2 mmHg (35.0-45.0); BG PH 7.428 (7.350-7.450); BG SAMPLE SITE RIGHT RADIAL; BG TIDAL VOLUME(mL) 500 mL; BG TOTAL HEMOGLOBIN 8.9 g/dL (12.0-18.0); BG VENT MODE VENT - A/C; BG VENT RATE 14 set
[2018-02-10] MEDS ORDERED: FUROSEMIDE 40MG/4ML VIAL IVP NR (11:00)
[2018-02-10] MEDS ORDERED: LIDOCAINE HCL/PF 1% 2ML VIAL ONE (13:21)
[2018-02-11] VITALS (104 sets, daily range): BP systolic 101–204; BP diastolic 56–174
[2018-02-11] MEDS: BLOOD SUGAR DIAGNOSTIC STRIP TEST SCH ×5 (00:02→23:32)
[2018-02-11] MEDS: INSULIN REGULAR (HUMULIN R) 300UNITS/3ML SUBCUT SCH ×5 (00:16→23:33)
[2018-02-11] MEDS: IPRATROPIUM/ALBUTEROL 0.5-3(2.5)MG/3ML NEB HHN SCH ×5 (03:57→19:50)
[2018-02-11] MEDS: NITROGLYCERIN OINT 1GM/INCH UDPKT TD SCH ×7 (04:40→23:32)
[2018-02-11 05:55] LABS: BASOPHILS % 0.5 % (0.0-2.0); EOSINOPHILS % 1.6 % (0.0-5.0); HEMATOCRIT. 25.7 % (36.0-48.0); HEMOGLOBIN. 7.9 g/dL (12.0-16.0); LYMPHOCYTES % 8.9 % (20.0-50.0); MEAN CORPUSCULAR HEMOGLOBIN 22.1 pg (28.0-32.0); MEAN CORPUSCULAR VOLUME 72.1 fL (81.0-99.0); MONOCYTES % 6.6 % (2.0-8.0); NEUTROPHILS % 82.4 % (40.0-76.0); PLATELET 301 x1000/uL (130-400); RED BLOOD CELL COUNT 3.56 mill/uL (4.2-5.4); RED CELL DISTRIBUTION WIDTH 16.9 % (11.6-14.6)
[2018-02-11] MEDS: CLOPIDOGREL 75MG TABLET PO SCH (08:33)
[2018-02-11] MEDS: FUROSEMIDE 40MG/4ML VIAL IVP SCH (08:34)
[2018-02-11] MEDS: FERROUS SULFATE 300MG/5ML UDC PO SCH ×3 (08:34→17:11)
[2018-02-11] MEDS: MINOXIDIL 2.5MG TABLET PO SCH ×2 (08:34→21:00)
[2018-02-11] MEDS: PANTOPRAZOLE SODIUM 40 MG/VIAL IV SCH (08:34)
[2018-02-11] MEDS: CLONIDINE 0.3MG TABLET NG SCH ×4 (08:35→20:17)
[2018-02-11] MEDS: ASPIRIN 81MG EC TABLET PO SCH ×2 (08:35→20:16)
[2018-02-11] MEDS: NEBIVOLOL HCL 5 MG TABLET PO SCH ×3 (08:35→23:18)
[2018-02-11] MEDS: NITROGLYCERIN 50MG PREMIX 250 ML IV PRN (08:41)
[2018-02-11 10:23] LABS: BG CARBOXYHEMOGLOBIN 0.7 % (0.5-1.5); BG DEOXYHEMOGLOBIN 1.1 % (0.0-5.0); BG FRACTION INSPIRED OXYGEN 40; BG HCO3 ACT 25.3 mmol/L (22.0-26.0); BG METHEMOGLOBIN 0.5 % (0.0-1.5); BG OXYGEN SATURATION 98.9 % (92.0-98.5); BG OXYHEMOGLOBIN 97.7 % (94.0-97.0); BG PO2 139.3 mmHg (75.0-100.0); BG SAMPLE SITE RIGHT RADIAL; BG TIDAL VOLUME(mL) 500 mL; BG TOTAL HEMOGLOBIN 7.5 g/dL (12.0-18.0); BG VENT MODE VENT - A/C; BG VENT RATE 14 set
[2018-02-12] VITALS (76 sets, daily range): BP systolic 98–218; BP diastolic 49–125
[2018-02-12] MEDS: NITROGLYCERIN 50MG PREMIX 250 ML IV PRN ×3 (00:07→13:56)
[2018-02-12] MEDS: IPRATROPIUM/ALBUTEROL 0.5-3(2.5)MG/3ML NEB HHN SCH ×6 (00:21→20:48)
[2018-02-12] MEDS: LORAZEPAM 2MG/ML CPJ IV PRN (03:20)
[2018-02-12] MEDS: NITROGLYCERIN OINT 1GM/INCH UDPKT TD SCH ×5 (04:44→21:40)
[2018-02-12] MEDS: BLOOD SUGAR DIAGNOSTIC STRIP TEST SCH ×3 (05:43→17:25)
[2018-02-12 06:07] LABS: BASOPHILS % 0.7 % (0.0-2.0); EOSINOPHILS % 1.7 % (0.0-5.0); HEMATOCRIT. 25.9 % (36.0-48.0); HEMOGLOBIN. 7.9 g/dL (12.0-16.0); LYMPHOCYTES % 7.2 % (20.0-50.0); MEAN CORPUSCULAR HEMOGLOBIN 21.8 pg (28.0-32.0); MEAN CORPUSCULAR VOLUME 71.6 fL (81.0-99.0); MEAN PLATELET VOLUME 8.6 fl (7.4-10.4); MONOCYTES % 6.7 % (2.0-8.0); NEUTROPHILS % 83.7 % (40.0-76.0); PLATELET 342 x1000/uL (130-400); RED BLOOD CELL COUNT 3.63 mill/uL (4.2-5.4)
[2018-02-12] MEDS: INSULIN REGULAR (HUMULIN R) 300UNITS/3ML SUBCUT SCH ×3 (06:14→17:25)
[2018-02-12 06:28] LABS: CHLORIDE 109 mEq/L (98-107)
[2018-02-12] MEDS: FERROUS SULFATE 300MG/5ML UDC PO SCH ×3 (08:20→17:40)
[2018-02-12 08:51] LABS: BG BASE EXCESS 2.4 mmol/L (-2.0-2.0); BG DEOXYHEMOGLOBIN 1.4 % (0.0-5.0); BG FRACTION INSPIRED OXYGEN 35; BG HCO3 ACT 26.5 mmol/L (22.0-26.0); BG METHEMOGLOBIN 0.3 % (0.0-1.5); BG OXYGEN SATURATION 98.6 % (92.0-98.5); BG OXYHEMOGLOBIN 97.3 % (94.0-97.0); BG PCO2 38.4 mmHg (35.0-45.0); BG PH 7.456 (7.350-7.450); BG PO2 115.7 mmHg (75.0-100.0); BG SAMPLE SITE RIGHT RADIAL; BG TIDAL VOLUME(mL) 500 mL; BG TOTAL HEMOGLOBIN 8.5 g/dL (12.0-18.0); BG VENT MODE VENT - A/C; BG VENT RATE 12 set
[2018-02-12] MEDS: PANTOPRAZOLE SODIUM 40 MG/VIAL IV SCH (09:26)
[2018-02-12] MEDS: MORPHINE SULFATE 4 MG/ML CPJ (NOT FOR IM USE) IV PRN (09:26)
[2018-02-12] MEDS: FUROSEMIDE 40MG/4ML VIAL IVP SCH (09:26)
[2018-02-12] MEDS: ASPIRIN 81MG EC TABLET PO SCH ×2 (09:27→22:00)
[2018-02-12] MEDS: CLOPIDOGREL 75MG TABLET PO SCH (09:27)
[2018-02-12] MEDS: CLONIDINE 0.3MG TABLET NG SCH ×4 (09:27→21:00)
[2018-02-12] MEDS: MINOXIDIL 2.5MG TABLET PO SCH ×2 (09:27→22:00)
[2018-02-12] MEDS: NEBIVOLOL HCL 5 MG TABLET PO SCH ×2 (09:27→22:00)
[2018-02-12 17:07] LABS: BARBITURATE SCREEN Negative ug/mL (Cutoff:0.1); BENZODIAZEPINE SCREEN Negative ng/mL (Cutoff:20); OPIATES SCREEN ++POSITIVE++ ng/mL (Cutoff:5); PHENCYCLIDINE SCREEN Negative ng/mL (Cutoff:8)
[2018-02-12] MEDS: SODIUM CHLORIDE 0.9% 1,000 ML IV SCH (22:30)
[2018-02-13] VITALS (53 sets, daily range): BP systolic 99–206; BP diastolic 57–133
[2018-02-13] MEDS: IPRATROPIUM/ALBUTEROL 0.5-3(2.5)MG/3ML NEB HHN SCH ×6 (00:27→20:26)
[2018-02-13] MEDS: BLOOD SUGAR DIAGNOSTIC STRIP TEST SCH ×5 (00:31→23:31)
[2018-02-13] MEDS: INSULIN REGULAR (HUMULIN R) 300UNITS/3ML SUBCUT SCH ×5 (00:31→23:31)
[2018-02-13] MEDS: NITROGLYCERIN OINT 1GM/INCH UDPKT TD SCH ×7 (01:25→23:50)
[2018-02-13] MEDS: MORPHINE SULFATE 4 MG/ML CPJ (NOT FOR IM USE) IV PRN (01:58)
[2018-02-13] MEDS: CLONIDINE 0.3MG TABLET NG SCH ×2 (05:22→12:34)
[2018-02-13] MEDS: MINOXIDIL 2.5MG TABLET PO SCH ×2 (05:22→21:27)
[2018-02-13 05:49] LABS: BASOPHILS % 0.5 % (0.0-2.0); EOSINOPHILS % 1.5 % (0.0-5.0); HEMATOCRIT. 27.2 % (36.0-48.0); HEMOGLOBIN. 8.2 g/dL (12.0-16.0); MEAN CORPUSCULAR HEMOGLOBIN 21.7 pg (28.0-32.0); MEAN CORPUSCULAR VOLUME 72.3 fL (81.0-99.0); MEAN PLATELET VOLUME 8.7 fl (7.4-10.4); MONOCYTES % 5.8 % (2.0-8.0); NEUTROPHILS % 83.2 % (40.0-76.0); PLATELET 335 x1000/uL (130-400); RED BLOOD CELL COUNT 3.76 mill/uL (4.2-5.4); RED CELL DISTRIBUTION WIDTH 17.7 % (11.6-14.6)
[2018-02-13] MEDS: LORAZEPAM 2MG/ML CPJ IV PRN (05:56)
[2018-02-13 08:39] LABS: BG BASE EXCESS 1.7 mmol/L (-2.0-2.0); BG FRACTION INSPIRED OXYGEN 35; BG HCO3 ACT 26.2 mmol/L (22.0-26.0); BG METHEMOGLOBIN 0.5 % (0.0-1.5); BG OXYHEMOGLOBIN 97.5 % (94.0-97.0); BG PCO2 41.2 mmHg (35.0-45.0); BG PH 7.422 (7.350-7.450); BG PO2 137.7 mmHg (75.0-100.0); BG SAMPLE SITE RIGHT RADIAL; BG TIDAL VOLUME(mL) 500 mL; BG TOTAL HEMOGLOBIN 7.9 g/dL (12.0-18.0); BG VENT MODE VENT - A/C; BG VENT RATE 12 set
[2018-02-13] MEDS ORDERED: IOHEXOL-350 100 ML BOTTLE ONE (11:43)
[2018-02-13] MEDS: FERROUS SULFATE 300MG/5ML UDC PO SCH ×3 (11:50→19:02)
[2018-02-13] MEDS: PANTOPRAZOLE SODIUM 40 MG/VIAL IV SCH (11:50)
[2018-02-13] MEDS: CLOPIDOGREL 75MG TABLET PO SCH (11:51)
[2018-02-13] MEDS: ASPIRIN 81MG EC TABLET PO SCH ×2 (11:51→21:26)
[2018-02-13] MEDS: NEBIVOLOL HCL 5 MG TABLET PO SCH ×2 (11:52→21:26)
[2018-02-13] MEDS: CLONIDINE 0.2MG TABLET NG SCH ×2 (16:34→21:27)
[2018-02-13] MEDS: SODIUM CHLORIDE 0.9% 1,000 ML IV SCH (20:45)
[2018-02-14] VITALS (98 sets, daily range): BP systolic 96–235; BP diastolic 48–129
[2018-02-14] MEDS: IPRATROPIUM/ALBUTEROL 0.5-3(2.5)MG/3ML NEB HHN SCH ×6 (00:37→20:26)
[2018-02-14] MEDS: NITROGLYCERIN OINT 1GM/INCH UDPKT TD SCH ×5 (03:45→20:00)
[2018-02-14] MEDS: INSULIN REGULAR (HUMULIN R) 300UNITS/3ML SUBCUT SCH ×4 (05:35→23:30)
[2018-02-14] MEDS: BLOOD SUGAR DIAGNOSTIC STRIP TEST SCH ×4 (05:43→23:30)
[2018-02-14 05:50] LABS: BASOPHILS % 1.1 % (0.0-2.0); HEMOGLOBIN. 8.4 g/dL (12.0-16.0); LYMPHOCYTES % 9.1 % (20.0-50.0); MEAN CORPUSCULAR HEMOGLOBIN 22.1 pg (28.0-32.0); MEAN CORPUSCULAR VOLUME 74.2 fL (81.0-99.0); MEAN PLATELET VOLUME 8.7 fl (7.4-10.4); MONOCYTES % 5.4 % (2.0-8.0); NEUTROPHILS % 81.4 % (40.0-76.0); PLATELET 354 x1000/uL (130-400); RED BLOOD CELL COUNT 3.78 mill/uL (4.2-5.4); RED CELL DISTRIBUTION WIDTH 19.4 % (11.6-14.6)
[2018-02-14] MEDS: FERROUS SULFATE 300MG/5ML UDC PO SCH ×3 (10:21→18:51)
[2018-02-14] MEDS: PANTOPRAZOLE SODIUM 40 MG/VIAL IV SCH (10:21)
[2018-02-14] MEDS: ASPIRIN 81MG EC TABLET PO SCH (10:22)
[2018-02-14] MEDS: NEBIVOLOL HCL 5 MG TABLET PO SCH ×2 (10:22→21:00)
[2018-02-14] MEDS: CLOPIDOGREL 75MG TABLET PO SCH (10:23)
[2018-02-14] MEDS: MINOXIDIL 2.5MG TABLET PO SCH (10:23)
[2018-02-14] MEDS: CLONIDINE 0.2MG TABLET NG SCH ×4 (10:24→21:00)
[2018-02-14 13:07] LABS: ANTI-THROMBIN ACTIVITY 126 % (75-135); PROTEIN C FUNCTIONAL 126 % (73-180)
[2018-02-14] MEDS: NITROGLYCERIN 50MG PREMIX 250 ML IV PRN (18:53)
[2018-02-14] MEDS ORDERED: MINOXIDIL 10MG TABLET PO SCH (21:00)
[2018-02-14] MEDS: ASPIRIN 81MG TABLET NG SCH (23:25)
[2018-02-15] VITALS (97 sets, daily range): BP systolic 118–228; BP diastolic 53–141
[2018-02-15] MEDS: IPRATROPIUM/ALBUTEROL 0.5-3(2.5)MG/3ML NEB HHN SCH ×7 (01:02→23:46)
[2018-02-15] MEDS: NITROGLYCERIN OINT 1GM/INCH UDPKT TD SCH ×6 (03:12→22:22)
[2018-02-15] MEDS: BLOOD SUGAR DIAGNOSTIC STRIP TEST SCH ×3 (05:50→19:00)
[2018-02-15] MEDS: INSULIN REGULAR (HUMULIN R) 300UNITS/3ML SUBCUT SCH ×3 (05:51→19:18)
[2018-02-15 06:38] LABS: BASOPHILS % 0.8 % (0.0-2.0); EOSINOPHILS % 2.3 % (0.0-5.0); HEMATOCRIT. 29.5 % (36.0-48.0); HEMOGLOBIN. 8.8 g/dL (12.0-16.0); LYMPHOCYTES % 9.6 % (20.0-50.0); MEAN CORPUSCULAR HEMOGLOBIN 22.3 pg (28.0-32.0); MEAN CORPUSCULAR VOLUME 74.8 fL (81.0-99.0); MEAN PLATELET VOLUME 8.6 fl (7.4-10.4); MONOCYTES % 7.9 % (2.0-8.0); NEUTROPHILS % 79.4 % (40.0-76.0); PLATELET 320 x1000/uL (130-400); RED BLOOD CELL COUNT 3.95 mill/uL (4.2-5.4); RED CELL DISTRIBUTION WIDTH 19.9 % (11.6-14.6)
[2018-02-15] MEDS ORDERED: MINOXIDIL 2.5MG TABLET PO SCH (07:30)
[2018-02-15] MEDS: PANTOPRAZOLE SODIUM 40 MG/VIAL IV SCH (09:32)
[2018-02-15] MEDS: FERROUS SULFATE 300MG/5ML UDC PO SCH ×3 (09:32→19:06)
[2018-02-15] MEDS: NEBIVOLOL HCL 5 MG TABLET PO SCH ×2 (09:33→21:00)
[2018-02-15] MEDS: CLONIDINE 0.2MG TABLET NG SCH ×4 (09:34→21:00)
[2018-02-15] MEDS: NITROGLYCERIN 50MG PREMIX 250 ML IV PRN ×3 (09:35→21:08)
[2018-02-15] MEDS: CLOPIDOGREL 75MG TABLET PO SCH (09:52)
[2018-02-15] MEDS: ASPIRIN 81MG TABLET NG SCH (09:54)
[2018-02-15] MEDS: MINOXIDIL 2.5MG TABLET PO SCH ×2 (11:44→19:07)
[2018-02-15 12:51] LABS: BG BASE EXCESS 1.1 mmol/L (-2.0-2.0); BG CARBOXYHEMOGLOBIN 0.7 % (0.5-1.5); BG DEOXYHEMOGLOBIN 2.5 % (0.0-5.0); BG FRACTION INSPIRED OXYGEN 35; BG HCO3 ACT 25.6 mmol/L (22.0-26.0); BG METHEMOGLOBIN 0.6 % (0.0-1.5); BG OXYGEN SATURATION 97.5 % (92.0-98.5); BG OXYHEMOGLOBIN 96.2 % (94.0-97.0); BG PCO2 40.3 mmHg (35.0-45.0); BG PH 7.421 (7.350-7.450); BG PO2 95.8 mmHg (75.0-100.0); BG PRESSURE SUPPORT 14; BG SAMPLE SITE RIGHT RADIAL; BG TIDAL VOLUME(mL) 500 mL; BG VENT MODE VENT - SIMV; BG VENT RATE 6 set
[2018-02-16] VITALS (91 sets, daily range): BP systolic 90–167; BP diastolic 45–131
[2018-02-16] MEDS: BLOOD SUGAR DIAGNOSTIC STRIP TEST SCH ×4 (00:17→18:51)
[2018-02-16] MEDS: INSULIN REGULAR (HUMULIN R) 300UNITS/3ML SUBCUT SCH ×4 (00:17→18:00)
[2018-02-16] MEDS: NITROGLYCERIN OINT 1GM/INCH UDPKT TD SCH ×6 (04:00→20:00)
[2018-02-16] MEDS: IPRATROPIUM/ALBUTEROL 0.5-3(2.5)MG/3ML NEB HHN SCH ×5 (04:04→20:56)
[2018-02-16 05:59] LABS: HEMATOCRIT. 29.2 % (36.0-48.0); HEMOGLOBIN. 8.5 g/dL (12.0-16.0); MEAN CORPUSCULAR HEMOGLOBIN 21.7 pg (28.0-32.0); MEAN CORPUSCULAR VOLUME 74.1 fL (81.0-99.0); MEAN PLATELET VOLUME 8.3 fl (7.4-10.4); PLATELET 303 x1000/uL (130-400); RED BLOOD CELL COUNT 3.94 mill/uL (4.2-5.4); RED CELL DISTRIBUTION WIDTH 20.7 % (11.6-14.6)
[2018-02-16] MEDS: MINOXIDIL 2.5MG TABLET PO SCH ×5 (06:00→18:52)
[2018-02-16 07:28] LABS: PLATELET ESTIMATE NORMAL
[2018-02-16] MEDS: PANTOPRAZOLE SODIUM 40 MG/VIAL IV SCH (09:29)
[2018-02-16] MEDS: FERROUS SULFATE 300MG/5ML UDC PO SCH ×3 (09:29→18:51)
[2018-02-16] MEDS: NEBIVOLOL HCL 5 MG TABLET PO SCH ×2 (09:30→21:00)
[2018-02-16] MEDS: CLONIDINE 0.2MG TABLET NG SCH ×4 (09:31→21:00)
[2018-02-16] MEDS: ASPIRIN 81MG TABLET NG SCH (09:31)
[2018-02-16] MEDS: CLOPIDOGREL 75MG TABLET PO SCH (09:31)
[2018-02-16 14:39] LABS: BG BASE EXCESS -1.2 mmol/L (-2.0-2.0); BG CARBOXYHEMOGLOBIN 1.2 % (0.5-1.5); BG DEOXYHEMOGLOBIN 1.1 % (0.0-5.0); BG FRACTION INSPIRED OXYGEN 35; BG HCO3 ACT 23.4 mmol/L (22.0-26.0); BG METHEMOGLOBIN 0.2 % (0.0-1.5); BG OXYGEN SATURATION 98.9 % (92.0-98.5); BG OXYHEMOGLOBIN 97.5 % (94.0-97.0); BG PCO2 38.1 mmHg (35.0-45.0); BG PH 7.406 (7.350-7.450); BG PO2 125.5 mmHg (75.0-100.0); BG PRESSURE SUPPORT 8; BG SAMPLE SITE RIGHT RADIAL; BG TOTAL HEMOGLOBIN 7.4 g/dL (12.0-18.0); BG VENT MODE VENT - CPAP
[2018-02-17] VITALS (97 sets, daily range): BP systolic 91–230; BP diastolic 55–158
[2018-02-17] MEDS: INSULIN REGULAR (HUMULIN R) 300UNITS/3ML SUBCUT SCH ×4 (00:16→17:59)
[2018-02-17] MEDS: BLOOD SUGAR DIAGNOSTIC STRIP TEST SCH ×4 (00:16→17:47)
[2018-02-17] MEDS: IPRATROPIUM/ALBUTEROL 0.5-3(2.5)MG/3ML NEB HHN SCH ×7 (00:41→23:30)
[2018-02-17] MEDS: ACETAMINOPHEN 650MG/20.3ML UDC GT PRN ×2 (03:45→20:35)
[2018-02-17 04:13] LABS: ALDOLASE 7.1 U/L (3.3-10.3)
[2018-02-17] MEDS: NITROGLYCERIN OINT 1GM/INCH UDPKT TD SCH ×6 (04:21→20:00)
[2018-02-17 04:32] LABS: BG BASE EXCESS -2.3 mmol/L (-2.0-2.0); BG CARBOXYHEMOGLOBIN 0.3 % (0.5-1.5); BG DEOXYHEMOGLOBIN 1.3 % (0.0-5.0); BG FRACTION INSPIRED OXYGEN 40; BG HCO3 ACT 22.8 mmol/L (22.0-26.0); BG METHEMOGLOBIN 0.5 % (0.0-1.5); BG OXYGEN SATURATION 98.7 % (92.0-98.5); BG OXYHEMOGLOBIN 97.9 % (94.0-97.0); BG PH 7.373 (7.350-7.450); BG PO2 132.4 mmHg (75.0-100.0); BG SAMPLE SITE LEFT RADIAL; BG TOTAL HEMOGLOBIN 9.7 g/dL (12.0-18.0); BG VENT MODE MASK - AEROSOL
[2018-02-17 05:36] LABS: BASOPHILS % 1.1 % (0.0-2.0); EOSINOPHILS % 3.1 % (0.0-5.0); HEMATOCRIT. 28.8 % (36.0-48.0); HEMOGLOBIN. 8.5 g/dL (12.0-16.0); LYMPHOCYTES % 11.4 % (20.0-50.0); MEAN PLATELET VOLUME 8.4 fl (7.4-10.4); MONOCYTES % 6.4 % (2.0-8.0); PLATELET 447 x1000/uL (130-400); RED BLOOD CELL COUNT 3.89 mill/uL (4.2-5.4); RED CELL DISTRIBUTION WIDTH 21.1 % (11.6-14.6)
[2018-02-17] MEDS: MINOXIDIL 2.5MG TABLET PO SCH ×4 (06:38→17:03)
[2018-02-17 07:25] LABS: BG CARBOXYHEMOGLOBIN 1.2 % (0.5-1.5); BG DEOXYHEMOGLOBIN 1.3 % (0.0-5.0); BG HCO3 ACT 24.1 mmol/L (22.0-26.0); BG METHEMOGLOBIN 0.2 % (0.0-1.5); BG OXYGEN SATURATION 98.7 % (92.0-98.5); BG OXYHEMOGLOBIN 97.3 % (94.0-97.0); BG PH 7.377 (7.350-7.450); BG PO2 120.8 mmHg (75.0-100.0); BG SAMPLE SITE RIGHT RADIAL; BG TOTAL HEMOGLOBIN 8.9 g/dL (12.0-18.0); BG VENT MODE MASK - AEROSOL
[2018-02-17 09:11] LABS: COMPLEMENT C3 279 mg/dL (82-167)
[2018-02-17 09:11] LABS: G6PD RBC 3.06 x10E6/uL (3.77-5.28)
[2018-02-17 09:59] LABS: BG BASE EXCESS -0.6 mmol/L (-2.0-2.0); BG CARBOXYHEMOGLOBIN 0.5 % (0.5-1.5); BG DEOXYHEMOGLOBIN 0.3 % (0.0-5.0); BG FRACTION INSPIRED OXYGEN 100; BG HCO3 ACT 24.8 mmol/L (22.0-26.0); BG METHEMOGLOBIN 0.6 % (0.0-1.5); BG OXYGEN SATURATION 99.7 % (92.0-98.5); BG OXYHEMOGLOBIN 98.6 % (94.0-97.0); BG PCO2 43.8 mmHg (35.0-45.0); BG PO2 464.5 mmHg (75.0-100.0); BG SAMPLE SITE LEFT RADIAL; BG TIDAL VOLUME(mL) 500 mL; BG TOTAL HEMOGLOBIN 9.7 g/dL (12.0-18.0); BG VENT MODE VENT - A/C; BG VENT RATE 14 set
[2018-02-17] MEDS: CLOPIDOGREL 75MG TABLET PO SCH (10:03)
[2018-02-17] MEDS: PANTOPRAZOLE SODIUM 40 MG/VIAL IV SCH (10:03)
[2018-02-17] MEDS: ASPIRIN 81MG TABLET NG SCH (10:03)
[2018-02-17] MEDS: FERROUS SULFATE 300MG/5ML UDC PO SCH ×3 (10:03→17:47)
[2018-02-17] MEDS: NEBIVOLOL HCL 5 MG TABLET PO SCH ×2 (10:04→20:36)
[2018-02-17] MEDS: CLONIDINE 0.2MG TABLET NG SCH ×4 (10:04→20:35)
[2018-02-17 10:06] LABS: ANTI-MYELOPEROXIDASE AB < 9.0 U/mL (0.0-9.0); ANTI-PROTEINASE 3 ABS < 3.5 U/mL (0.0-3.5)
[2018-02-17] MEDS: METHYLPREDNISOLONE SOD SUCC 40 MG/ML VIAL IV SCH ×2 (10:29→17:03)
[2018-02-17] MEDS: NITROGLYCERIN 50MG PREMIX 250 ML IV PRN (10:57)
[2018-02-17] MEDS: LORAZEPAM 2MG/ML CPJ IV PRN (11:06)
[2018-02-17] MEDS ORDERED: FUROSEMIDE 40MG/4ML VIAL IVP NR (12:45)
[2018-02-17 13:10] LABS: ANA IFA Positive (.)
[2018-02-17] MEDS ORDERED: VECURONIUM BROMIDE 10 MG/VIAL IV ONE (14:37)
[2018-02-17] MEDS ORDERED: ETOMIDATE 2MG/ML 10ML VIAL IV ONE (14:37)
[2018-02-17 15:06] LABS: ATYPICAL P-ANCA <1:20 titer (Neg:<1:20); CYTOPLASMIC C-ANCA <1:20 titer (Neg:<1:20); PERINUCLEAR P-ANCA <1:20 titer (Neg:<1:20)
[2018-02-18] VITALS (93 sets, daily range): BP systolic 95–190; BP diastolic 51–122
[2018-02-18] MEDS: IPRATROPIUM/ALBUTEROL 0.5-3(2.5)MG/3ML NEB HHN SCH ×5 (00:46→20:19)
[2018-02-18] MEDS: BLOOD SUGAR DIAGNOSTIC STRIP TEST SCH ×3 (00:57→12:49)
[2018-02-18] MEDS: INSULIN REGULAR (HUMULIN R) 300UNITS/3ML SUBCUT SCH ×4 (01:08→17:26)
[2018-02-18] MEDS: NITROGLYCERIN OINT 1GM/INCH UDPKT TD SCH ×6 (01:09→21:13)
[2018-02-18] MEDS: METHYLPREDNISOLONE SOD SUCC 40 MG/ML VIAL IV SCH ×3 (02:37→21:13)
[2018-02-18 04:13] LABS: ANTI-JO 1 ABS <0.2 AI (0.0-0.9); RNP ANTIBODY < 0.2 AI (0.0-0.9); SMITH ANTIBODY < 0.2 AI (0.0-0.9)
[2018-02-18 04:13] LABS: ANTI-DNA DOUBLE STRANDED QUANT 1 IU/mL (0-9)
[2018-02-18 06:21] LABS: CHLORIDE 108 mEq/L (98-107)
[2018-02-18 06:23] LABS: HEMATOCRIT. 28.3 % (36.0-48.0); HEMOGLOBIN. 8.4 g/dL (12.0-16.0); MEAN CORPUSCULAR HEMOGLOBIN 22.4 pg (28.0-32.0); MEAN CORPUSCULAR VOLUME 75.6 fL (81.0-99.0); MEAN PLATELET VOLUME 8.6 fl (7.4-10.4); PLATELET 314 x1000/uL (130-400); RED BLOOD CELL COUNT 3.74 mill/uL (4.2-5.4); RED CELL DISTRIBUTION WIDTH 21.7 % (11.6-14.6)
[2018-02-18 08:44] LABS: BG CARBOXYHEMOGLOBIN 0.7 % (0.5-1.5); BG DEOXYHEMOGLOBIN 0.7 % (0.0-5.0); BG FRACTION INSPIRED OXYGEN 40; BG HCO3 ACT 21.2 mmol/L (22.0-26.0); BG METHEMOGLOBIN 0.1 % (0.0-1.5); BG OXYGEN SATURATION 99.3 % (92.0-98.5); BG OXYHEMOGLOBIN 98.5 % (94.0-97.0); BG PCO2 34.7 mmHg (35.0-45.0); BG PH 7.404 (7.350-7.450); BG PO2 154.3 mmHg (75.0-100.0); BG SAMPLE SITE LEFT RADIAL; BG TIDAL VOLUME(mL) 500 mL; BG TOTAL HEMOGLOBIN 9.4 g/dL (12.0-18.0); BG VENT MODE VENT - A/C; BG VENT RATE 14 set
[2018-02-18] MEDS ORDERED: SODIUM POLYSTYRENE SULFONATE 15 G/60 ML BOT PO SCH (08:45)
[2018-02-18] MEDS: FERROUS SULFATE 300MG/5ML UDC PO SCH ×2 (08:49→12:49)
[2018-02-18] MEDS: PANTOPRAZOLE SODIUM 40 MG/VIAL IV SCH (08:50)
[2018-02-18] MEDS: ASPIRIN 81MG TABLET NG SCH (08:50)
[2018-02-18] MEDS: NEBIVOLOL HCL 5 MG TABLET PO SCH ×2 (08:51→21:00)
[2018-02-18] MEDS: MINOXIDIL 2.5MG TABLET PO SCH ×2 (08:52→16:38)
[2018-02-18] MEDS: CLOPIDOGREL 75MG TABLET PO SCH (08:52)
[2018-02-18 09:12] LABS: PLATELET ESTIMATE NORMAL
[2018-02-18] MEDS: CLONIDINE 0.2MG TABLET NG SCH ×4 (09:59→21:00)
[2018-02-18 14:20] LABS: ANTI-CARDIOLIPIN AB IGA < 9 APL U/mL (0-11); ANTI-CARDIOLIPIN AB IGG < 9 GPL U/mL (0-14); ANTI-CARDIOLIPIN AB IGM < 9 MPL U/mL (0-12)
[2018-02-18 15:28] LABS: INR 1.1; PARTIAL THROMBOPLASTIN TIME 21.4 sec (23.4-31.0)
[2018-02-19] VITALS (99 sets, daily range): BP systolic 97–185; BP diastolic 54–131
[2018-02-19] MEDS: IPRATROPIUM/ALBUTEROL 0.5-3(2.5)MG/3ML NEB HHN SCH ×6 (00:05→20:45)
[2018-02-19] MEDS: NITROGLYCERIN OINT 1GM/INCH UDPKT TD SCH ×6 (00:05→20:00)
[2018-02-19] MEDS: MORPHINE SULFATE 4 MG/ML CPJ (NOT FOR IM USE) IV PRN ×3 (05:30→16:29)
[2018-02-19] MEDS: INSULIN REGULAR (HUMULIN R) 300UNITS/3ML SUBCUT SCH ×4 (05:40→19:03)
[2018-02-19 06:00] LABS: HEMATOCRIT. 27.9 % (36.0-48.0); HEMOGLOBIN. 8.4 g/dL (12.0-16.0); MEAN CORPUSCULAR HEMOGLOBIN 22.1 pg (28.0-32.0); MEAN CORPUSCULAR VOLUME 73.9 fL (81.0-99.0); MEAN PLATELET VOLUME 8.4 fl (7.4-10.4); PLATELET 367 x1000/uL (130-400); RED BLOOD CELL COUNT 3.78 mill/uL (4.2-5.4); RED CELL DISTRIBUTION WIDTH 21.9 % (11.6-14.6)
[2018-02-19 06:02] LABS: INR 1.1; PARTIAL THROMBOPLASTIN TIME 24.5 sec (23.4-31.0); PROTHROMBIN TIME 10.8 sec (9.1-11.1)
[2018-02-19 07:46] LABS: BG CARBOXYHEMOGLOBIN 0.8 % (0.5-1.5); BG DEOXYHEMOGLOBIN 1.1 % (0.0-5.0); BG FRACTION INSPIRED OXYGEN 35; BG HCO3 ACT 24.6 mmol/L (22.0-26.0); BG METHEMOGLOBIN 0.6 % (0.0-1.5); BG OXYGEN SATURATION 98.9 % (92.0-98.5); BG OXYHEMOGLOBIN 97.5 % (94.0-97.0); BG PCO2 39.6 mmHg (35.0-45.0); BG PH 7.411 (7.350-7.450); BG SAMPLE SITE RIGHT RADIAL; BG TIDAL VOLUME(mL) 500 mL; BG TOTAL HEMOGLOBIN 9.2 g/dL (12.0-18.0); BG VENT MODE VENT - A/C; BG VENT RATE 14 set
[2018-02-19] MEDS ORDERED: LEVOFLOXACIN 500MG PREMIX 100 ML IV NR (08:00)
[2018-02-19] MEDS: FERROUS SULFATE 300MG/5ML UDC PO SCH ×3 (08:20→18:49)
[2018-02-19] MEDS: METHYLPREDNISOLONE SOD SUCC 40 MG/ML VIAL IV SCH ×2 (09:04→21:49)
[2018-02-19] MEDS: LORAZEPAM 2MG/ML CPJ IV PRN (09:06)
[2018-02-19] MEDS: PANTOPRAZOLE SODIUM 40 MG/VIAL IV SCH (09:06)
[2018-02-19] MEDS: NEBIVOLOL HCL 5 MG TABLET PO SCH ×2 (09:40→21:00)
[2018-02-19] MEDS: CLONIDINE 0.2MG TABLET NG SCH ×4 (09:40→21:00)
[2018-02-19] MEDS: MINOXIDIL 2.5MG TABLET PO SCH ×2 (09:41→19:01)
[2018-02-19 10:18] LABS: PLATELET ESTIMATE NORMAL
[2018-02-19] MEDS ORDERED: BACTERIOSTATIC SODIUM CHLORIDE 0.9% 30ML VIAL IJ ONE (11:33)
[2018-02-19] MEDS: BLOOD SUGAR DIAGNOSTIC STRIP TEST SCH ×4 (12:00→18:40)
[2018-02-19] MEDS ORDERED: MIDAZOLAM HCL 5 MG/5 ML VIAL ONE (16:22)
[2018-02-19] MEDS ORDERED: FENTANYL CITRATE/PF 50MCG/ML 2ML VIAL ONE (16:22)
[2018-02-19] MEDS ORDERED: MIDAZOLAM HCL 5 MG/5 ML VIAL IV PRN (16:37)
[2018-02-19] MEDS ORDERED: FENTANYL CITRATE/PF 50MCG/ML 2ML VIAL IV PRN (16:38)
[2018-02-20] VITALS (122 sets, daily range): BP systolic 93–189; BP diastolic 50–108
[2018-02-20] MEDS: NITROGLYCERIN OINT 1GM/INCH UDPKT TD SCH ×6 (04:00→20:00)
[2018-02-20] MEDS: IPRATROPIUM/ALBUTEROL 0.5-3(2.5)MG/3ML NEB HHN SCH ×6 (04:38→20:17)
[2018-02-20] MEDS: BLOOD SUGAR DIAGNOSTIC STRIP TEST SCH ×4 (05:52→19:15)
[2018-02-20] MEDS: INSULIN REGULAR (HUMULIN R) 300UNITS/3ML SUBCUT SCH ×4 (05:54→19:56)
[2018-02-20] MEDS: PANTOPRAZOLE SODIUM 40 MG/VIAL IV SCH (08:38)
[2018-02-20] MEDS: METHYLPREDNISOLONE SOD SUCC 40 MG/ML VIAL IV SCH ×2 (08:38→20:56)
[2018-02-20] MEDS: CLONIDINE 0.2MG TABLET NG SCH ×3 (08:39→19:00)
[2018-02-20] MEDS: NEBIVOLOL HCL 5 MG TABLET PO SCH ×2 (08:39→20:56)
[2018-02-20] MEDS: FERROUS SULFATE 300MG/5ML UDC PO SCH ×3 (08:39→18:20)
[2018-02-20] MEDS: MINOXIDIL 2.5MG TABLET PO SCH ×2 (08:40→20:57)
[2018-02-20 10:02] LABS: HEMATOCRIT. 27.3 % (36.0-48.0); HEMOGLOBIN. 8.4 g/dL (12.0-16.0); MEAN CORPUSCULAR HEMOGLOBIN 22.9 pg (28.0-32.0); MEAN CORPUSCULAR VOLUME 74.8 fL (81.0-99.0); MEAN PLATELET VOLUME 8.3 fl (7.4-10.4); PLATELET 305 x1000/uL (130-400); RED BLOOD CELL COUNT 3.65 mill/uL (4.2-5.4); RED CELL DISTRIBUTION WIDTH 22.1 % (11.6-14.6)
[2018-02-20] MEDS ORDERED: ASPIRIN 81MG EC TABLET PO SCH (10:10)
[2018-02-20] MEDS ORDERED: CLOPIDOGREL 75MG TABLET PO SCH (10:10)
[2018-02-20 11:08] LABS: PLATELET ESTIMATE NORMAL
[2018-02-20] MEDS ORDERED: HEPARIN 60 UNITS/KG BOLUS IV NR ×2 (14:00→19:00)
[2018-02-20] MEDS ORDERED: LORAZEPAM 2MG/ML CPJ IV PRN (15:00)
[2018-02-20] MEDS ORDERED: PROPOFOL 10MG/ML 100ML 100 ML IV PRN (17:15)
[2018-02-20] MEDS: MORPHINE SULFATE 4 MG/ML CPJ (NOT FOR IM USE) IV PRN (17:28)
[2018-02-20] MEDS ORDERED: VECURONIUM BROMIDE 10 MG/VIAL IV ONE (17:45)
[2018-02-20] MEDS: HEPARIN 25,000 UNITS PREMIX 500 ML IV SCH (19:00)
[2018-02-20] MEDS ORDERED: HEPARIN BOLUS PRN aPTT <30 IV (19:00)
[2018-02-20] MEDS ORDERED: HEPARIN 25,000 UNITS PREMIX 500 ML IV SCH (19:00)
[2018-02-21] VITALS (117 sets, daily range): BP systolic 88–194; BP diastolic 49–139
[2018-02-21] MEDS: IPRATROPIUM/ALBUTEROL 0.5-3(2.5)MG/3ML NEB HHN SCH ×6 (00:15→20:00)
[2018-02-21] MEDS: BLOOD SUGAR DIAGNOSTIC STRIP TEST SCH ×4 (00:15→17:39)
[2018-02-21] MEDS: INSULIN REGULAR (HUMULIN R) 300UNITS/3ML SUBCUT SCH ×4 (00:18→17:45)
[2018-02-21] MEDS: CLONIDINE 0.2MG TABLET NG SCH ×5 (00:38→16:24)
[2018-02-21 03:22] LABS: HEMATOCRIT. 29.3 % (36.0-48.0); HEMOGLOBIN. 8.7 g/dL (12.0-16.0); MEAN CORPUSCULAR VOLUME 74.5 fL (81.0-99.0); MEAN PLATELET VOLUME 8.6 fl (7.4-10.4); PLATELET 364 x1000/uL (130-400); RED BLOOD CELL COUNT 3.94 mill/uL (4.2-5.4); RED CELL DISTRIBUTION WIDTH 21.2 % (11.6-14.6)
[2018-02-21 03:23] LABS: CHLORIDE 111 mEq/L (98-107)
[2018-02-21 03:45] LABS: PLATELET ESTIMATE NORMAL
[2018-02-21] MEDS: NITROGLYCERIN OINT 1GM/INCH UDPKT TD SCH ×6 (04:23→20:00)
[2018-02-21] MEDS: HEPARIN 25,000 UNITS PREMIX 500 ML IV SCH ×2 (05:25→23:44)
[2018-02-21 07:19] LABS: BG BASE EXCESS -2.1 mmol/L (-2.0-2.0); BG CARBOXYHEMOGLOBIN 0.6 % (0.5-1.5); BG DEOXYHEMOGLOBIN 3.2 % (0.0-5.0); BG HCO3 ACT 21.8 mmol/L (22.0-26.0); BG METHEMOGLOBIN 0.6 % (0.0-1.5); BG OXYGEN SATURATION 96.8 % (92.0-98.5); BG OXYHEMOGLOBIN 95.6 % (94.0-97.0); BG PCO2 33.6 mmHg (35.0-45.0); BG PO2 90.7 mmHg (75.0-100.0); BG SAMPLE SITE RIGHT RADIAL; BG TIDAL VOLUME(mL) 500 mL; BG TOTAL HEMOGLOBIN 8.4 g/dL (12.0-18.0); BG VENT MODE VENT - A/C; BG VENT RATE 14 set
[2018-02-21] MEDS: FERROUS SULFATE 300MG/5ML UDC PO SCH ×3 (08:53→17:43)
[2018-02-21] MEDS: PANTOPRAZOLE SODIUM 40 MG/VIAL IV SCH (08:54)
[2018-02-21] MEDS: MINOXIDIL 2.5MG TABLET PO SCH ×2 (08:54→21:00)
[2018-02-21] MEDS: METHYLPREDNISOLONE SOD SUCC 40 MG/ML VIAL IV SCH ×2 (08:54→21:27)
[2018-02-21] MEDS: NEBIVOLOL HCL 5 MG TABLET PO SCH ×2 (08:54→21:00)
[2018-02-21] MEDS: HEPARIN BOLUS PRN aPTT 30-44 IV (15:58)
[2018-02-22] VITALS (75 sets, daily range): BP systolic 109–202; BP diastolic 57–136
[2018-02-22] MEDS: IPRATROPIUM/ALBUTEROL 0.5-3(2.5)MG/3ML NEB HHN SCH ×5 (00:12→16:15)
[2018-02-22] MEDS: CLONIDINE 0.2MG TABLET NG SCH ×4 (01:00→18:04)
[2018-02-22 03:36] LABS: HEMATOCRIT. 28.7 % (36.0-48.0); HEMOGLOBIN. 8.6 g/dL (12.0-16.0); MEAN CORPUSCULAR HEMOGLOBIN 22.4 pg (28.0-32.0); MEAN CORPUSCULAR VOLUME 74.5 fL (81.0-99.0); MEAN PLATELET VOLUME 8.8 fl (7.4-10.4); PLATELET 279 x1000/uL (130-400); RED BLOOD CELL COUNT 3.85 mill/uL (4.2-5.4); RED CELL DISTRIBUTION WIDTH 21.5 % (11.6-14.6)
[2018-02-22] MEDS: NITROGLYCERIN OINT 1GM/INCH UDPKT TD SCH ×6 (04:15→20:29)
[2018-02-22] MEDS: BLOOD SUGAR DIAGNOSTIC STRIP TEST SCH ×5 (05:34→23:49)
[2018-02-22] MEDS: INSULIN REGULAR (HUMULIN R) 300UNITS/3ML SUBCUT SCH ×4 (05:58→18:05)
[2018-02-22 08:03] LABS: BG BASE EXCESS -0.8 mmol/L (-2.0-2.0); BG DEOXYHEMOGLOBIN 1.5 % (0.0-5.0); BG FRACTION INSPIRED OXYGEN 30; BG HCO3 ACT 23.4 mmol/L (22.0-26.0); BG METHEMOGLOBIN 0.5 % (0.0-1.5); BG OXYGEN SATURATION 98.5 % (92.0-98.5); BG PCO2 36.7 mmHg (35.0-45.0); BG PH 7.423 (7.350-7.450); BG PO2 118.8 mmHg (75.0-100.0); BG SAMPLE SITE LEFT RADIAL; BG TIDAL VOLUME(mL) 500 mL; BG TOTAL HEMOGLOBIN 8.3 g/dL (12.0-18.0); BG VENT MODE VENT - A/C; BG VENT RATE 14 set
[2018-02-22] MEDS: METHYLPREDNISOLONE SOD SUCC 40 MG/ML VIAL IV SCH ×2 (08:59→20:30)
[2018-02-22] MEDS: PANTOPRAZOLE SODIUM 40 MG/VIAL IV SCH (08:59)
[2018-02-22] MEDS: FERROUS SULFATE 300MG/5ML UDC PO SCH ×3 (08:59→18:04)
[2018-02-22] MEDS: MINOXIDIL 2.5MG TABLET PO SCH ×2 (09:00→21:00)
[2018-02-22] MEDS: NEBIVOLOL HCL 5 MG TABLET PO SCH ×2 (09:00→20:28)
[2018-02-22] MEDS: HEPARIN BOLUS PRN aPTT 30-44 IV ×2 (09:33→23:28)
[2018-02-22 09:41] LABS: PLATELET ESTIMATE NORMAL
[2018-02-22] MEDS ORDERED: INSULIN GLARGINE UD 100 UNITS/ML SYR SUBCUT SCH (22:00)
[2018-02-23] VITALS (36 sets, daily range): BP systolic 115–181; BP diastolic 56–116
[2018-02-23] MEDS: NITROGLYCERIN OINT 1GM/INCH UDPKT TD SCH ×7 (00:01→20:48)
[2018-02-23] MEDS: CLONIDINE 0.2MG TABLET NG SCH ×4 (00:28→19:33)
[2018-02-23] MEDS: HEPARIN 25,000 UNITS PREMIX 500 ML IV SCH (00:31)
[2018-02-23] MEDS: INSULIN REGULAR (HUMULIN R) 300UNITS/3ML SUBCUT SCH ×5 (01:28→23:08)
[2018-02-23 05:15] LABS: HEMATOCRIT. 28.3 % (36.0-48.0); HEMOGLOBIN. 8.7 g/dL (12.0-16.0); MEAN CORPUSCULAR HEMOGLOBIN 22.6 pg (28.0-32.0); MEAN PLATELET VOLUME 9.2 fl (7.4-10.4); PLATELET 250 x1000/uL (130-400); RED BLOOD CELL COUNT 3.83 mill/uL (4.2-5.4)
[2018-02-23] MEDS: BLOOD SUGAR DIAGNOSTIC STRIP TEST SCH ×4 (05:34→23:08)
[2018-02-23 06:41] LABS: PLATELET ESTIMATE NORMAL
[2018-02-23 08:03] LABS: BG CARBOXYHEMOGLOBIN 0.9 % (0.5-1.5); BG DEOXYHEMOGLOBIN 0.5 % (0.0-5.0); BG FRACTION INSPIRED OXYGEN 30; BG HCO3 ACT 21.5 mmol/L (22.0-26.0); BG METHEMOGLOBIN 0.1 % (0.0-1.5); BG OXYGEN SATURATION 99.5 % (92.0-98.5); BG OXYHEMOGLOBIN 98.5 % (94.0-97.0); BG PCO2 31.7 mmHg (35.0-45.0); BG PEEP (cmH2O) 0 cmH2O; BG PH 7.449 (7.350-7.450); BG PO2 198.6 mmHg (75.0-100.0); BG SAMPLE SITE LEFT RADIAL; BG TIDAL VOLUME(mL) 500 mL; BG TOTAL HEMOGLOBIN 8.9 g/dL (12.0-18.0); BG VENT MODE VENT - A/C; BG VENT RATE 14 set
[2018-02-23] MEDS: FERROUS SULFATE 300MG/5ML UDC PO SCH ×3 (08:11→19:33)
[2018-02-23] MEDS: PANTOPRAZOLE SODIUM 40 MG/VIAL IV SCH (08:21)
[2018-02-23] MEDS: METHYLPREDNISOLONE SOD SUCC 40 MG/ML VIAL IV SCH ×2 (08:21→20:48)
[2018-02-23] MEDS: NEBIVOLOL HCL 5 MG TABLET PO SCH ×2 (08:22→20:48)
[2018-02-23] MEDS: MINOXIDIL 2.5MG TABLET PO SCH ×2 (08:22→20:48)
[2018-02-23] MEDS: IPRATROPIUM/ALBUTEROL 0.5-3(2.5)MG/3ML NEB HHN SCH ×5 (08:46→23:48)
[2018-02-24] VITALS (53 sets, daily range): BP systolic 98–226; BP diastolic 51–148
[2018-02-24] MEDS: CLONIDINE 0.2MG TABLET NG SCH ×4 (02:28→19:00)
[2018-02-24] MEDS: IPRATROPIUM/ALBUTEROL 0.5-3(2.5)MG/3ML NEB HHN SCH ×5 (03:18→20:46)
[2018-02-24] MEDS: NITROGLYCERIN OINT 1GM/INCH UDPKT TD SCH ×7 (04:00→20:00)
[2018-02-24] MEDS: BLOOD SUGAR DIAGNOSTIC STRIP TEST SCH ×3 (05:21→18:17)
[2018-02-24] MEDS: HEPARIN 25,000 UNITS PREMIX 500 ML IV SCH (06:01)
[2018-02-24] MEDS: INSULIN REGULAR (HUMULIN R) 300UNITS/3ML SUBCUT SCH ×3 (06:01→18:31)
[2018-02-24 06:04] LABS: HEMATOCRIT. 30.8 % (36.0-48.0); HEMOGLOBIN. 9.2 g/dL (12.0-16.0); MEAN CORPUSCULAR HEMOGLOBIN 22.2 pg (28.0-32.0); MEAN CORPUSCULAR VOLUME 74.8 fL (81.0-99.0); MEAN PLATELET VOLUME 9.1 fl (7.4-10.4); PLATELET 246 x1000/uL (130-400); RED BLOOD CELL COUNT 4.12 mill/uL (4.2-5.4); RED CELL DISTRIBUTION WIDTH 20.5 % (11.6-14.6)
[2018-02-24 07:58] LABS: BG BASE EXCESS -1.2 mmol/L (-2.0-2.0); BG CARBOXYHEMOGLOBIN 0.6 % (0.5-1.5); BG DEOXYHEMOGLOBIN 1.4 % (0.0-5.0); BG FRACTION INSPIRED OXYGEN 30; BG HCO3 ACT 23.3 mmol/L (22.0-26.0); BG METHEMOGLOBIN 0.5 % (0.0-1.5); BG OXYGEN SATURATION 98.6 % (92.0-98.5); BG OXYHEMOGLOBIN 97.5 % (94.0-97.0); BG PCO2 38.2 mmHg (35.0-45.0); BG PH 7.404 (7.350-7.450); BG PO2 121.1 mmHg (75.0-100.0); BG SAMPLE SITE RIGHT RADIAL; BG TIDAL VOLUME(mL) 500 mL; BG TOTAL HEMOGLOBIN 9.4 g/dL (12.0-18.0); BG VENT MODE VENT - A/C; BG VENT RATE 14 set
[2018-02-24] MEDS: PANTOPRAZOLE SODIUM 40 MG/VIAL IV SCH (08:41)
[2018-02-24] MEDS: FERROUS SULFATE 300MG/5ML UDC PO SCH ×3 (08:41→18:30)
[2018-02-24] MEDS: METHYLPREDNISOLONE SOD SUCC 40 MG/ML VIAL IV SCH (08:42)
[2018-02-24] MEDS: NEBIVOLOL HCL 5 MG TABLET PO SCH ×2 (08:43→20:56)
[2018-02-24] MEDS: MINOXIDIL 2.5MG TABLET PO SCH ×2 (08:43→20:56)
[2018-02-24 10:06] LABS: NUCLEATED RED BLOOD CELLS 3 /100 WBC
[2018-02-24 10:08] LABS: PLATELET ESTIMATE NORMAL
[2018-02-24] MEDS: HEPARIN BOLUS PRN aPTT 30-44 IV (14:33)
[2018-02-25] VITALS (59 sets, daily range): BP systolic 89–230; BP diastolic 24–154
[2018-02-25] MEDS: IPRATROPIUM/ALBUTEROL 0.5-3(2.5)MG/3ML NEB HHN SCH ×7 (00:16→23:41)
[2018-02-25] MEDS: BLOOD SUGAR DIAGNOSTIC STRIP TEST SCH ×4 (00:42→17:23)
[2018-02-25] MEDS: NITROGLYCERIN OINT 1GM/INCH UDPKT TD SCH ×6 (00:51→20:21)
[2018-02-25] MEDS: CLONIDINE 0.2MG TABLET NG SCH ×4 (00:51→20:25)
[2018-02-25] MEDS: INSULIN REGULAR (HUMULIN R) 300UNITS/3ML SUBCUT SCH ×5 (05:08→23:28)
[2018-02-25] MEDS: HEPARIN 25,000 UNITS PREMIX 500 ML IV SCH (05:41)
[2018-02-25 05:50] LABS: BASOPHILS % 0.2 % (0.0-2.0); HEMATOCRIT. 31.5 % (36.0-48.0); HEMOGLOBIN. 9.2 g/dL (12.0-16.0); LYMPHOCYTES % 8.5 % (20.0-50.0); MEAN CORPUSCULAR HEMOGLOBIN 21.9 pg (28.0-32.0); MEAN CORPUSCULAR VOLUME 75.1 fL (81.0-99.0); MEAN PLATELET VOLUME 9.1 fl (7.4-10.4); MONOCYTES % 13.6 % (2.0-8.0); NEUTROPHILS % 76.7 % (40.0-76.0); PLATELET 267 x1000/uL (130-400); RED CELL DISTRIBUTION WIDTH 21.5 % (11.6-14.6)
[2018-02-25 07:45] LABS: BG BASE EXCESS -0.9 mmol/L (-2.0-2.0); BG CARBOXYHEMOGLOBIN 0.9 % (0.5-1.5); BG DEOXYHEMOGLOBIN 1.5 % (0.0-5.0); BG FRACTION INSPIRED OXYGEN 30; BG HCO3 ACT 22.9 mmol/L (22.0-26.0); BG METHEMOGLOBIN 0.6 % (0.0-1.5); BG OXYGEN SATURATION 98.5 % (92.0-98.5); BG PCO2 34.3 mmHg (35.0-45.0); BG PH 7.442 (7.350-7.450); BG PO2 113.9 mmHg (75.0-100.0); BG SAMPLE SITE RIGHT RADIAL; BG TIDAL VOLUME(mL) 500 mL; BG TOTAL HEMOGLOBIN 9.5 g/dL (12.0-18.0); BG VENT MODE VENT - A/C; BG VENT RATE 12 set
[2018-02-25] MEDS: METHYLPREDNISOLONE SOD SUCC 40 MG/ML VIAL IV SCH (07:59)
[2018-02-25] MEDS: PANTOPRAZOLE SODIUM 40 MG/VIAL IV SCH (07:59)
[2018-02-25] MEDS: NEBIVOLOL HCL 5 MG TABLET PO SCH ×2 (08:00→20:21)
[2018-02-25] MEDS: MINOXIDIL 2.5MG TABLET PO SCH ×2 (08:00→20:21)
[2018-02-25] MEDS: FERROUS SULFATE 300MG/5ML UDC PO SCH ×3 (08:01→17:02)
[2018-02-25] MEDS ORDERED: CLINDAMYCIN 900 MG in DEXTROSE 5% WATER 50 ML IV NR (18:00)
[2018-02-25] MEDS ORDERED: ROCURONIUM BROMIDE 10MG/ML VIAL 5ML IV ONE ×3 (18:15→20:26)
[2018-02-25] MEDS ORDERED: PROPOFOL 200MG/20ML VIAL IV ONE (20:53)
[2018-02-26] VITALS (72 sets, daily range): BP systolic 92–194; BP diastolic 41–151
[2018-02-26] MEDS: NITROGLYCERIN OINT 1GM/INCH UDPKT TD SCH ×7 (01:01→23:55)
[2018-02-26] MEDS: CLONIDINE 0.2MG TABLET NG SCH ×5 (01:01→19:00)
[2018-02-26] MEDS: IPRATROPIUM/ALBUTEROL 0.5-3(2.5)MG/3ML NEB HHN SCH ×5 (04:22→19:48)
[2018-02-26] MEDS: BLOOD SUGAR DIAGNOSTIC STRIP TEST SCH ×5 (05:36→23:50)
[2018-02-26] MEDS: INSULIN REGULAR (HUMULIN R) 300UNITS/3ML SUBCUT SCH ×4 (05:36→23:55)
[2018-02-26 07:26] LABS: HEMATOCRIT. 27.8 % (36.0-48.0); HEMOGLOBIN. 8.4 g/dL (12.0-16.0); MEAN CORPUSCULAR HEMOGLOBIN 22.4 pg (28.0-32.0); MEAN CORPUSCULAR VOLUME 74.3 fL (81.0-99.0); MEAN PLATELET VOLUME 9.1 fl (7.4-10.4); PLATELET 219 x1000/uL (130-400); RED BLOOD CELL COUNT 3.74 mill/uL (4.2-5.4); RED CELL DISTRIBUTION WIDTH 20.8 % (11.6-14.6)
[2018-02-26 07:35] LABS: BG BASE EXCESS -2.3 mmol/L (-2.0-2.0); BG DEOXYHEMOGLOBIN 1.5 % (0.0-5.0); BG HCO3 ACT 21.3 mmol/L (22.0-26.0); BG METHEMOGLOBIN 0.3 % (0.0-1.5); BG OXYGEN SATURATION 98.5 % (92.0-98.5); BG OXYHEMOGLOBIN 97.2 % (94.0-97.0); BG PCO2 32.1 mmHg (35.0-45.0); BG PO2 119.4 mmHg (75.0-100.0); BG SAMPLE SITE RIGHT RADIAL; BG TIDAL VOLUME(mL) 500 mL; BG TOTAL HEMOGLOBIN 9.6 g/dL (12.0-18.0); BG VENT MODE VENT - A/C; BG VENT RATE 14 set
[2018-02-26] MEDS: PANTOPRAZOLE SODIUM 40 MG/VIAL IV SCH (08:31)
[2018-02-26] MEDS: FERROUS SULFATE 300MG/5ML UDC PO SCH ×3 (08:31→17:15)
[2018-02-26] MEDS: METHYLPREDNISOLONE SOD SUCC 40 MG/ML VIAL IV SCH (08:31)
[2018-02-26] MEDS: MINOXIDIL 2.5MG TABLET PO SCH ×2 (08:33→21:00)
[2018-02-26] MEDS: NEBIVOLOL HCL 5 MG TABLET PO SCH ×2 (08:33→21:00)
[2018-02-26 11:34] LABS: PLATELET ESTIMATE NORMAL
[2018-02-27] VITALS (73 sets, daily range): BP systolic 105–216; BP diastolic 54–131
[2018-02-27] MEDS: CLONIDINE 0.2MG TABLET NG SCH ×4 (00:03→18:21)
[2018-02-27] MEDS: IPRATROPIUM/ALBUTEROL 0.5-3(2.5)MG/3ML NEB HHN SCH ×6 (00:07→20:13)
[2018-02-27] MEDS: NITROGLYCERIN OINT 1GM/INCH UDPKT TD SCH ×5 (03:21→20:09)
[2018-02-27] MEDS: HEPARIN 25,000 UNITS PREMIX 500 ML IV SCH (03:24)
[2018-02-27] MEDS: BLOOD SUGAR DIAGNOSTIC STRIP TEST SCH ×3 (05:27→18:15)
[2018-02-27] MEDS: INSULIN REGULAR (HUMULIN R) 300UNITS/3ML SUBCUT SCH ×3 (05:33→18:22)
[2018-02-27] MEDS: FERROUS SULFATE 300MG/5ML UDC PO SCH ×3 (08:33→18:20)
[2018-02-27] MEDS: PANTOPRAZOLE SODIUM 40 MG/VIAL IV SCH (08:33)
[2018-02-27] MEDS: METHYLPREDNISOLONE SOD SUCC 40 MG/ML VIAL IV SCH (08:33)
[2018-02-27] MEDS: NEBIVOLOL HCL 5 MG TABLET PO SCH ×2 (08:56→20:08)
[2018-02-27] MEDS: MINOXIDIL 2.5MG TABLET PO SCH ×2 (08:57→20:08)
[2018-02-27] MEDS: ASPIRIN 325MG EC TABLET PO SCH (10:40)
[2018-02-27] MEDS: CLOPIDOGREL 75MG TABLET PO SCH (10:40)
[2018-02-27 11:46] LABS: HEMATOCRIT. 26.9 % (36.0-48.0); HEMOGLOBIN. 8.1 g/dL (12.0-16.0); MEAN CORPUSCULAR VOLUME 73.5 fL (81.0-99.0); MEAN PLATELET VOLUME 9.7 fl (7.4-10.4); PLATELET 197 x1000/uL (130-400); RED BLOOD CELL COUNT 3.66 mill/uL (4.2-5.4); RED CELL DISTRIBUTION WIDTH 21.4 % (11.6-14.6)
[2018-02-27 12:52] LABS: PLATELET ESTIMATE NORMAL
[2018-02-28] VITALS (44 sets, daily range): BP systolic 107–220; BP diastolic 68–179
[2018-02-28] MEDS: BLOOD SUGAR DIAGNOSTIC STRIP TEST SCH ×3 (00:11→10:26)
[2018-02-28] MEDS: NITROGLYCERIN OINT 1GM/INCH UDPKT TD SCH ×6 (00:11→20:15)
[2018-02-28] MEDS: CLONIDINE 0.2MG TABLET NG SCH ×4 (00:11→20:15)
[2018-02-28] MEDS: INSULIN REGULAR (HUMULIN R) 300UNITS/3ML SUBCUT SCH ×4 (00:12→18:00)
[2018-02-28] MEDS: ACETAMINOPHEN 325MG TABLET PO PRN (00:27)
[2018-02-28 05:25] LABS: HEMATOCRIT. 27.4 % (36.0-48.0); HEMOGLOBIN. 8.4 g/dL (12.0-16.0); MEAN CORPUSCULAR HEMOGLOBIN 22.7 pg (28.0-32.0); MEAN CORPUSCULAR VOLUME 74.3 fL (81.0-99.0); MEAN PLATELET VOLUME 10.1 fl (7.4-10.4); PLATELET 183 x1000/uL (130-400); RED BLOOD CELL COUNT 3.68 mill/uL (4.2-5.4); RED CELL DISTRIBUTION WIDTH 21.3 % (11.6-14.6)
[2018-02-28 05:42] LABS: PHOSPHORUS 2.9 mg/dL (2.5-4.9)
[2018-02-28 08:24] LABS: BG BASE EXCESS -2.7 mmol/L (-2.0-2.0); BG CARBOXYHEMOGLOBIN 1.4 % (0.5-1.5); BG DEOXYHEMOGLOBIN 0.9 % (0.0-5.0); BG FRACTION INSPIRED OXYGEN 30; BG METHEMOGLOBIN 0.4 % (0.0-1.5); BG OXYGEN SATURATION 99.1 % (92.0-98.5); BG OXYHEMOGLOBIN 97.3 % (94.0-97.0); BG PCO2 31.9 mmHg (35.0-45.0); BG PH 7.437 (7.350-7.450); BG PO2 136.8 mmHg (75.0-100.0); BG SAMPLE SITE RIGHT RADIAL; BG TIDAL VOLUME(mL) 500 mL; BG TOTAL HEMOGLOBIN 8.5 g/dL (12.0-18.0); BG VENT MODE VENT - A/C; BG VENT RATE 14 set
[2018-02-28] MEDS: FERROUS SULFATE 300MG/5ML UDC PO SCH ×3 (10:24→18:20)
[2018-02-28] MEDS: ASPIRIN 325MG EC TABLET PO SCH (10:24)
[2018-02-28] MEDS: MINOXIDIL 2.5MG TABLET PO SCH ×2 (10:25→21:00)
[2018-02-28] MEDS: CLOPIDOGREL 75MG TABLET PO SCH (10:25)
[2018-02-28] MEDS: NEBIVOLOL HCL 5 MG TABLET PO SCH ×2 (10:25→21:00)
[2018-02-28] MEDS: PANTOPRAZOLE SODIUM 40 MG/VIAL IV SCH (10:26)
[2018-02-28] MEDS: METHYLPREDNISOLONE SOD SUCC 40 MG/ML VIAL IV SCH (10:26)
[2018-02-28 10:55] LABS: PLATELET ESTIMATE NORMAL
[2018-02-28] MEDS ORDERED: ALPRAZOLAM 0.25 MG TABLET PO PRN (11:00)
[2018-02-28] MEDS: ENOXAPARIN 30MG/0.3ML SYR SUBCUT SCH ×2 (13:53→22:28)
[2018-03-01] VITALS (26 sets, daily range): BP systolic 102–172; BP diastolic 57–101
[2018-03-01] MEDS: INSULIN REGULAR (HUMULIN R) 300UNITS/3ML SUBCUT SCH ×4 (00:15→17:43)
[2018-03-01] MEDS: CLONIDINE 0.2MG TABLET NG SCH ×4 (01:00→18:56)
[2018-03-01] MEDS: NITROGLYCERIN OINT 1GM/INCH UDPKT TD SCH ×6 (03:23→22:55)
[2018-03-01 07:43] LABS: HEMATOCRIT. 25.1 % (36.0-48.0); HEMOGLOBIN. 7.5 g/dL (12.0-16.0); MEAN CORPUSCULAR VOLUME 73.9 fL (81.0-99.0); MEAN PLATELET VOLUME 10.4 fl (7.4-10.4); PLATELET 213 x1000/uL (130-400); RED CELL DISTRIBUTION WIDTH 21.3 % (11.6-14.6)
[2018-03-01] MEDS: FERROUS SULFATE 300MG/5ML UDC PO SCH ×3 (08:24→17:48)
[2018-03-01] MEDS: METHYLPREDNISOLONE SOD SUCC 40 MG/ML VIAL IV SCH (08:31)
[2018-03-01 08:45] LABS: BG BASE EXCESS -3.5 mmol/L (-2.0-2.0); BG CARBOXYHEMOGLOBIN 1.2 % (0.5-1.5); BG DEOXYHEMOGLOBIN 0.7 % (0.0-5.0); BG FRACTION INSPIRED OXYGEN 30; BG HCO3 ACT 20.3 mmol/L (22.0-26.0); BG METHEMOGLOBIN 0.3 % (0.0-1.5); BG OXYGEN SATURATION 99.3 % (92.0-98.5); BG OXYHEMOGLOBIN 97.8 % (94.0-97.0); BG PCO2 31.5 mmHg (35.0-45.0); BG PH 7.427 (7.350-7.450); BG PO2 160.3 mmHg (75.0-100.0); BG PRESSURE SUPPORT 16; BG SAMPLE SITE RIGHT RADIAL; BG TIDAL VOLUME(mL) 500 mL; BG TOTAL HEMOGLOBIN 8.3 g/dL (12.0-18.0); BG VENT MODE VENT - SIMV; BG VENT RATE 10 set
[2018-03-01] MEDS: ASPIRIN 325MG EC TABLET PO SCH (10:19)
[2018-03-01] MEDS: CLOPIDOGREL 75MG TABLET PO SCH (10:19)
[2018-03-01] MEDS: ENOXAPARIN 30MG/0.3ML SYR SUBCUT SCH ×2 (10:20→22:52)
[2018-03-01] MEDS: MINOXIDIL 2.5MG TABLET PO SCH ×2 (10:29→22:54)
[2018-03-01] MEDS: NEBIVOLOL HCL 5 MG TABLET PO SCH ×2 (10:29→22:53)
[2018-03-01 13:07] LABS: HEMOGLOBIN 8.7 g/dL (12.0-16.0)
[2018-03-01 14:25] LABS: PLATELET ESTIMATE NORMAL
[2018-03-02] VITALS (10 sets, daily range): BP systolic 107–189; BP diastolic 50–95
[2018-03-02] MEDS: INSULIN REGULAR (HUMULIN R) 300UNITS/3ML SUBCUT SCH ×3 (00:59→17:45)
[2018-03-02] MEDS: CLONIDINE 0.2MG TABLET NG SCH ×4 (01:00→18:08)
[2018-03-02] MEDS: ACETAMINOPHEN 325MG TABLET PO PRN (02:12)
[2018-03-02] MEDS: NITROGLYCERIN OINT 1GM/INCH UDPKT TD SCH ×6 (04:00→20:58)
[2018-03-02 07:40] LABS: HEMATOCRIT. 23.8 % (36.0-48.0); HEMOGLOBIN. 7.2 g/dL (12.0-16.0); MEAN CORPUSCULAR HEMOGLOBIN 22.2 pg (28.0-32.0); MEAN CORPUSCULAR VOLUME 73.4 fL (81.0-99.0); MEAN PLATELET VOLUME 9.9 fl (7.4-10.4); PLATELET 179 x1000/uL (130-400); RED BLOOD CELL COUNT 3.24 mill/uL (4.2-5.4); RED CELL DISTRIBUTION WIDTH 20.6 % (11.6-14.6)
[2018-03-02] MEDS: FERROUS SULFATE 300MG/5ML UDC PO SCH ×3 (09:26→18:08)
[2018-03-02] MEDS: NEBIVOLOL HCL 5 MG TABLET PO SCH ×2 (09:27→20:58)
[2018-03-02] MEDS: ASPIRIN 325MG EC TABLET PO SCH (09:27)
[2018-03-02] MEDS: MINOXIDIL 2.5MG TABLET PO SCH ×2 (09:28→20:58)
[2018-03-02] MEDS: CLOPIDOGREL 75MG TABLET PO SCH (09:33)
[2018-03-02] MEDS: NYSTATIN POWDER 15GM TOP SCH ×2 (12:58→17:49)
[2018-03-02] MEDS ORDERED: FUROSEMIDE 40MG/4ML VIAL IVP NR (14:45)
[2018-03-02 15:00] LABS: PLATELET ESTIMATE NORMAL
[2018-03-02] MEDS ORDERED: CLONIDINE 0.1MG TABLET PO NR (18:20)
[2018-03-02 19:02] LABS: TOTAL IRON BINDING CAPACITY 174 ug/dL (250-450)
[2018-03-02] MEDS: IPRATROPIUM/ALBUTEROL 0.5-3(2.5)MG/3ML NEB HHN SCH (20:15)
[2018-03-03] VITALS (8 sets, daily range): BP systolic 106–194; BP diastolic 58–106
[2018-03-03] MEDS: IPRATROPIUM/ALBUTEROL 0.5-3(2.5)MG/3ML NEB HHN SCH ×3 (00:10→14:19)
[2018-03-03] MEDS: ACETYLCYSTEINE 100MG/ML 10% VIAL 4ML INH SCH ×3 (00:10→14:20)
[2018-03-03] MEDS: NITROGLYCERIN OINT 1GM/INCH UDPKT TD SCH ×4 (00:42→12:00)
[2018-03-03] MEDS: CLONIDINE 0.2MG TABLET NG SCH ×4 (00:43→13:46)
[2018-03-03 08:12] LABS: HEMOGLOBIN. 8.2 g/dL (12.0-16.0); MEAN CORPUSCULAR HEMOGLOBIN 22.3 pg (28.0-32.0); MEAN CORPUSCULAR VOLUME 72.9 fL (81.0-99.0); MEAN PLATELET VOLUME 9.9 fl (7.4-10.4); PLATELET 221 x1000/uL (130-400); RED BLOOD CELL COUNT 3.69 mill/uL (4.2-5.4); RED CELL DISTRIBUTION WIDTH 20.5 % (11.6-14.6)
[2018-03-03 08:15] LABS: HEMATOCRIT. 26.9 % (36.0-48.0)
[2018-03-03 08:18] LABS: A/G RATIO 0.8 (0.7-1.7); ALBUMIN 2.2 g/dL (2.9-4.4); ALPHA-1-GLOBULIN 0.3 g/dL (0.0-0.4); ALPHA-2-GLOBULIN 0.8 g/dL (0.4-1.0); GAMMA GLOBULINS 0.5 g/dL (0.4-1.8); GLOBULIN TOTAL 2.6 g/dL (2.2-3.9); M-SPIKE Not Observed g/dL (Not Observed); TOTAL PROTEIN SERUM 4.8 g/dL (6.0-8.5)
[2018-03-03] MEDS: CLOPIDOGREL 75MG TABLET PO SCH (09:12)
[2018-03-03] MEDS: MINOXIDIL 2.5MG TABLET PO SCH (09:12)
[2018-03-03] MEDS: FERROUS SULFATE 300MG/5ML UDC PO SCH ×2 (09:12→13:56)
[2018-03-03] MEDS: NEBIVOLOL HCL 5 MG TABLET PO SCH (09:13)
[2018-03-03] MEDS: ASPIRIN 325MG EC TABLET PO SCH (09:13)
[2018-03-03] MEDS: NYSTATIN POWDER 15GM TOP SCH ×2 (09:14→13:56)
[2018-03-03] MEDS: INSULIN REGULAR (HUMULIN R) 300UNITS/3ML SUBCUT SCH ×3 (09:30→13:46)
[2018-03-03 14:04] LABS: PLATELET ESTIMATE NORMAL
[2018-03-03] MEDS ORDERED: DIATR MEGLU/DIATRIZOATE SOLN 30ML PO NR (14:30)
[2018-03-03] MEDS ORDERED: CLONIDINE 0.2MG TABLET NG NR (16:00)
[2018-03-03] MEDS ORDERED: METRONIDAZOLE 500 MG PREMIX 100 ML IV SCH (17:00)
[2018-03-03] MEDS ORDERED: VANCOMYCIN 1,750 MG in DEXT 5% WATER 500 ML IV NR (17:30)
[2018-03-03] MEDS ORDERED: AZTREONAM 1 G in DEXTROSE 5% WATER 50 ML IV SCH (18:00)
[2018-03-04] MEDS ORDERED: VANCOMYCIN 1 G PREMIX 200 ML IV SCH (18:00)
== END 2018-03-03 16:00 | DRG 3 ==
LOC: ER 15:48 → 7WST 22:03 → ENRESERV 22:13 → 3WST 01-30 15:32 → CVICU 01-30 19:27 → 5EST 03-01 01:20
PROVIDERS: ADMIT Family Medicine Adult Medicine; ATTEND Family Medicine Adult Medicine
PROC: 5A09357 Assistance with Respiratory Ventilation, Less than 24 Consecutive Hours, Continuous Positive Airway Pressure (ICD-10-PCS; 2018-01-30)
PROC: 5A1955Z Respiratory Ventilation, Greater than 96 Consecutive Hours (ICD-10-PCS; principal; 2018-01-31)
PROC: 05H933Z Insertion of Infusion Device into Right Brachial Vein, Percutaneous Approach (ICD-10-PCS; 2018-01-31)
PROC: B54MZZA Ultrasonography of Right Upper Extremity Veins, Guidance (ICD-10-PCS; 2018-01-31)
PROC: 027135Z Dilation of Coronary Artery, Two Arteries with Two Drug-eluting Intraluminal Devices, Percutaneous Approach (ICD-10-PCS; 2018-02-03)
PROC: 4A023N8 Measurement of Cardiac Sampling and Pressure, Bilateral, Percutaneous Approach (ICD-10-PCS; 2018-02-03)
PROC: B211YZZ Fluoroscopy of Multiple Coronary Arteries using Other Contrast (ICD-10-PCS; 2018-02-03)
PROC: 4A00X4Z Measurement of Central Nervous Electrical Activity, External Approach (ICD-10-PCS; 2018-02-04)
PROC: 5A1955Z Respiratory Ventilation, Greater than 96 Consecutive Hours (ICD-10-PCS; 2018-02-10)
PROC: 0BH17EZ Insertion of Endotracheal Airway into Trachea, Via Natural or Artificial Opening (ICD-10-PCS; 2018-02-10)
PROC: 5A1955Z Respiratory Ventilation, Greater than 96 Consecutive Hours (ICD-10-PCS; 2018-02-17)
PROC: 0BH17EZ Insertion of Endotracheal Airway into Trachea, Via Natural or Artificial Opening (ICD-10-PCS; 2018-02-17)
PROC: 0DH64UZ Insertion of Feeding Device into Stomach, Percutaneous Endoscopic Approach (ICD-10-PCS; 2018-02-19)
PROC: 0DB58ZX Excision of Esophagus, Via Natural or Artificial Opening Endoscopic, Diagnostic (ICD-10-PCS; 2018-02-19)
PROC: 0B21XEZ Change Endotracheal Airway in Trachea, External Approach (ICD-10-PCS; 2018-02-20)
PROC: 0B110F4 Bypass Trachea to Cutaneous with Tracheostomy Device, Open Approach (ICD-10-PCS; 2018-02-25)
PROC: 0BH17EZ Insertion of Endotracheal Airway into Trachea, Via Natural or Artificial Opening (ICD-10-PCS; 2018-03-03)
DX: A41.9 Sepsis, unspecified organism (principal); I50.23 Acute on chronic systolic (congestive) heart failure; N17.0 Acute kidney failure with tubular necrosis; R65.21 Severe sepsis with septic shock; G92 Toxic encephalopathy; I21.4 Non-ST elevation (NSTEMI) myocardial infarction; J69.0 Pneumonitis due to inhalation of food and vomit; I63.531 Cerebral infarction due to unspecified occlusion or stenosis of right posterior cerebral artery; J96.21 Acute and chronic respiratory failure with hypoxia; T82.855A Stenosis of coronary artery stent, initial encounter; I13.0 Hypertensive heart and chronic kidney disease with heart failure and stage 1 through stage 4 chronic kidney disease, or unspecified chronic kidney disease; E46 Unspecified protein-calorie malnutrition; E87.0 Hyperosmolality and hypernatremia; F31.30 Bipolar disorder, current episode depressed, mild or moderate severity, unspecified; I16.1 Hypertensive emergency; I42.0 Dilated cardiomyopathy; G81.94 Hemiplegia, unspecified affecting left nondominant side; I25.10 Atherosclerotic heart disease of native coronary artery without angina pectoris; N18.3 Chronic kidney disease, stage 3 (moderate); E11.22 Type 2 diabetes mellitus with diabetic chronic kidney disease; D50.9 Iron deficiency anemia, unspecified; D72.810 Lymphocytopenia; D72.823 Leukemoid reaction; E11.40 Type 2 diabetes mellitus with diabetic neuropathy, unspecified; E11.51 Type 2 diabetes mellitus with diabetic peripheral angiopathy without gangrene; E11.65 Type 2 diabetes mellitus with hyperglycemia; E78.1 Pure hyperglyceridemia; E78.5 Hyperlipidemia, unspecified; E83.52 Hypercalcemia; E87.5 Hyperkalemia; S70.322A Blister (nonthermal), left thigh, initial encounter; X58.XXXA Exposure to other specified factors, initial encounter; E87.6 Hypokalemia; F20.9 Schizophrenia, unspecified; I25.5 Ischemic cardiomyopathy; I49.3 Ventricular premature depolarization; I65.23 Occlusion and stenosis of bilateral carotid arteries; K59.00 Constipation, unspecified; Y93.89 Activity, other specified; M19.90 Unspecified osteoarthritis, unspecified site; M32.9 Systemic lupus erythematosus, unspecified; R13.10 Dysphagia, unspecified; R31.0 Gross hematuria; R76.8 Other specified abnormal immunological findings in serum; Y83.1 Surgical operation with implant of artificial internal device as the cause of abnormal reaction of the patient, or of later complication, without mention of misadventure at the time of the procedure; I95.9 Hypotension, unspecified; R47.02 Dysphasia; Z79.4 Long term (current) use of insulin; Z82.49 Family history of ischemic heart disease and other diseases of the circulatory system; Z83.3 Family history of diabetes mellitus; Z88.0 Allergy status to penicillin; Z93.1 Gastrostomy status; Y92.89 Other specified places as the place of occurrence of the external cause; I69.320 Aphasia following cerebral infarction; Z78.1 Physical restraint status; Z88.8 Allergy status to other drugs, medicaments and biological substances; I25.2 Old myocardial infarction; Z88.6 Allergy status to analgesic agent; Z91.040 Latex allergy status; Z91.011 Allergy to milk products; Z88.5 Allergy status to narcotic agent; Z91.018 Allergy to other foods; Z91.048 Other nonmedicinal substance allergy status; Z79.51 Long term (current) use of inhaled steroids; Z79.899 Other long term (current) drug therapy; Z79.82 Long term (current) use of aspirin; Y99.8 Other external cause status; Z68.33 Body mass index [BMI] 33.0-33.9, adult
CPT/HCPCS: 31500; 36415; 36569; 36600; 70498; 70551; 71045; 74176; 76604; 76937; 78580; 80048; 80061; 80305; 80307; 81403; 81407; 81479; 82085; 82140; 82164; 82270; 82330; 82375; 82550; 82553; 82607; 82746; 82805; 82955; 82962; 83036; 83520; 83540; 83550; 83735; 83880; 83970; 84100; 84132; 84134; 84145; 84155; 84165; 84439; 84443; 84478; 84481; 84484; 84550; 85014; 85018; 85041; 85044; 85300; 85303; 85306; 85347; 85379; 85651; 86140; 86147; 86160; 86225; 86235; 86256; 86430; 86592; 86780; 86880; 87070; 87804; 88305; 88312; 92928; 92929; 93005; 93306; 93458; 93970; 94002; 94003; 94640; 94660; 94667; 96361; 96374; 96375; 97163; 99285; A4216; A6261; C1725; C1760; C1769; C1874; C1887; C1893; C9113; J0330; J0456; J1170; J1644; J1650; J1815; J1940; J1956; J2060; J2250; J2270; J2370; J2405; J2704; J2920; J3010; J3370; J3490; J7030; J7040; J7050; J7060; J7608; J7620; Q9967; A4315